=== PATIENT | female | born 1985 | race Caucasian/White ===

== ENCOUNTER 2020-01-24 10:08 | Emergency (ER) | payer MEDICAID, SELFPAY ==
[2020-01-24 10:09] VITALS: BMI 24.3
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
[2020-01-24 10:13] VITALS: BP 127/73; PULSE 88; RESP 18; TEMP 36.8; O2SAT 98
--- NOTE | 2020-01-24 10:18 | XRR_ITS ---
PROCEDURE INFORMATION: Exam: XR Right Ribs with PA Chest, 3 Views Exam date and time: 01/24/2020 10:18 AM Age: 34 years old Clinical indication: Other: RT rib pain; Additional info: Injury TECHNIQUE: Imaging protocol: XR Right ribs 3 views with PA chest. COMPARISON: CR Chest 1 [place] [id number] 09/19/2018 6:05 PM FINDINGS: Lungs: There are coarse interstitial changes bilaterally. Pleural space: Unremarkable. No pleural effusion. No pneumothorax. Heart/Mediastinum: Unremarkable. No cardiomegaly. Bones/joints: Unremarkable. XR/XR ribs RT mn 3V w CXR1V [id number] IMPRESSION: 1. No displaced rib fracture is identified. Please see above report for incidental findings. 2. There are coarse interstitial changes bilaterally. Followup imaging as clinically indicated is recommended.
[2020-01-24] MEDS: HYDROcodone-acetaminophen 7.5-325 mg Tablet 1 TAB PO (10:40)
[2020-01-24 11:18] VITALS: BP 121/63; PULSE 98; RESP 16; TEMP 36.9; O2SAT 100
== END 2020-01-24 11:19 | disposition home or self-care (01) ==
PROVIDERS: Emergency Provider Nurse Practitioner Family; Family Provider Nurse Practitioner Family; PCP Nurse Practitioner Family
DX: M79.18 Myalgia, other site (principal); F17.210 Nicotine dependence, cigarettes, uncomplicated
CPT/HCPCS: 12345; 71101; 99282; 99283

== ENCOUNTER 2020-05-13 17:17 | Emergency (ER) | payer MEDICAID, SELFPAY ==
[2020-05-13 17:18] VITALS: BP 127/61; PULSE 93; RESP 18; TEMP 36.8; O2SAT 100; BMI 24.3
--- NOTE | 2020-05-13 19:02 | PC.NURSE ---
attempted to call patient back to VF room 1. no answer in waiting room when called to be brought back at 1900. notified
--- NOTE | 2020-05-13 19:12 | PC.NURSE ---
CALL TO PATIENT IN ATTEMPTED TO CALL PATIENT BACK TO ROOM AGAIN. NO ANSWER IN THE WAITING ROOM AT 1912. WILL TRY AGAIN
== END 2020-05-13 19:47 | disposition left against medical advice (07) ==
PROVIDERS: Emergency Provider Emergency Medicine; PCP Nurse Practitioner Family
DX: Z53.21 Procedure and treatment not carried out due to patient leaving prior to being seen by health care provider (principal)
CPT/HCPCS: 99281

== ENCOUNTER → 2021-03-17 14:30 | Outpatient (BNVA) | payer BC, MEDICAID, SELFPAY | PROVIDERS: PCP Nurse Practitioner Family; Visit Provider Registered Nurse Neonatal Intensive Care | DX: R10.9 Unspecified abdominal pain (principal); N76.0 Acute vaginitis; B96.89 Other specified bacterial agents as the cause of diseases classified elsewhere | CPT/HCPCS: 81000 ==

== ENCOUNTER → 2021-05-12 18:26 | Outpatient (BNVA) | payer MEDICAID, SELFPAY | PROVIDERS: PCP Nurse Practitioner Family; Visit Provider Registered Nurse Neonatal Intensive Care | DX: Z20.822 Contact with and (suspected) exposure to COVID-19 (principal) | CPT/HCPCS: 87635 ==

== ENCOUNTER 2021-12-15 16:57 | Emergency (ER) | payer BC, MEDICAID, SELFPAY ==
[2021-12-15 17:11] VITALS: BP 136/84; PULSE 107; RESP 17; TEMP 36.9; O2SAT 98; BMI 25.0
--- NOTE | 2021-12-15 17:57 | ECG_ITS ---
[facility] Test Date: 2021-12-15 Pat Name: Kristal Santa Department: Room: Gender: Female Hims Manager: : 1985 Requested By: Tameka Miner Order Number: [id number] Salomon MD: Tenzin Farias M.D. Measurements Intervals [place] Rate: 86 P: 78 MO: 150 QRS: 62 QRSD: 86 T: 44 QT: 330 QTc: 396 Interpretive Statements SINUS RHYTHM POSSIBLE LEFT ATRIAL ENLARGEMENT [-0.1mV P-WAVE IN V1/V2] NONSPECIFIC T-WAVE ABNORMALITY Compared to ECG 12/03/2017 16:36:31 Sinus tachycardia no longer present T-wave abnormality still present Electronically Signed On 12-15-2021 21:28:31 CDT by Tenzin Farias M.D. [id number]
--- NOTE | 2021-12-15 17:57 | CTR_ITS ---
PROCEDURE INFORMATION: Exam: CT Head Without Contrast Exam date and time: 12/15/2021 6:10 PM Age: 36 years old Clinical indication: Dizziness TECHNIQUE: Imaging protocol: Computed tomography of the head without contrast. Axial, coronal and sagittal reformatted images were created and reviewed. Radiation optimization: All CT scans at this facility use at least one of these dose optimization techniques: automated exposure control; mA and/or kV adjustment per patient size (includes targeted exams where dose is matched to clinical indication); or iterative reconstruction. COMPARISON: CT head wo con* [id number] 09/19/2018 6:12 PM RADIATION DOSE METRICS: Total DLP (mGy-cm): 890.09 FINDINGS: Brain: No CT evidence of acute intracranial hemorrhage or acute territorial infarction. No significant mass effect or midline shift. Basal cisterns patent. Cerebral ventricles: Normal in size and configuration. Paranasal sinuses: Mild ethmoid and left sphenoid sinus mucosal thickening. No air-fluid levels. Mastoid air cells: Grossly unremarkable. Bones/joints: No acute osseous abnormality. Soft tissues: Grossly unremarkable. CT/CT head wo con* [id number] IMPRESSION: 1. No CT evidence of acute intracranial pathology. 2. Additional findings, as above.
--- NOTE | 2021-12-15 17:59 | W.ED.DIZZY ---
HPI - Dizziness General: Chief Complaint: Dizziness Stated Complaint: Dizzy spells, hx of [place] Time Seen by Provider: 12/15/21 17:22 Source: patient Mode of arrival: ambulatory Limitations: no limitations History of Present Illness: HPI Narrative: Patient is a 36-year-old female presents to ED today with a quite confusing history. She is somewhat hard to follow. She tells me ultimately she just does not feel well. She states she has been having intermittent episodes of dizziness for several months now. She states they initially began after an episode of methamphetamine use. She states she is not having any chest pain, shortness of breath, or palpitations. She states they initially were just in the evenings after smoking marijuana but now occur during the day. She states last week she used methamphetamine and feels like following that she was having motor issues stating she felt like her arms and legs were not working appropriately. She states this has improved over the past few days. She doesn't complain of any weakness in her extremities. She reports some paresthesias to the left side of her scalp a while ago but states these have resolved. She reports a history of grand mal seizures she has had for several years but apparently has never had any form of neurologic evaluation. Patient is not running fevers. No back or neck pain. MD elicited complaint: dizziness Onset (ago): week(s) Timing: episodic History of similar symptoms: Yes Relieving factors: nothing Associated symptoms: Denies chest pain, chills, headache(s), malaise, nausea, palpitations, syncope or vomiting Associated neuro symptoms: Deny confusion Stroke scale total: 0 Review of Systems Const: Denies: fever(s), chills, body aches, change in appetite, fatigue, malaise or night sweats Eyes: Denies: change in vision, blurry vision, blind spots, photophobia, floaters or seeing flashes Card: Denies: chest pain, palpitations, irregular heart rhythm, edema, swelling of feet/ankles, syncope, pre-syncope or orthopnea Resp: Denies: dyspnea, productive cough, wheezing, hemoptysis or chest congestion GI: Denies: abdominal pain, nausea, vomiting or diarrhea : Denies: flank pain or dysuria Musc: Denies: neck pain, back pain, extremity pain or joint pain Skin/Breast: Denies: rash Neuro: Reports: dizziness; Denies: headache(s), difficulty walking, frequent falls, confusion, Slurred speech present or restless legs PFSH ED PFSH: Social History Smoking and tobacco status: current every day smoker Female Reproductive History: Date of last menstrual period: 01/23/20 Physical Exam Const: COMMON NORMALS: no acute distress, average body habitus, patient oriented x3, no limitations, alert and well nourished GENERAL APPEARANCE: cooperative ORIENTATION/CONSCIOUSNESS: Yes awake, Yes oriented to person, Yes oriented to place and Yes oriented to time HENMT: COMMON NORMALS: normocephalic and atraumatic HEAD & SCALP: normal to inspection, normocephalic and atraumatic FACE & SINUS: normal facial exam Eye: COMMON NORMALS: Equal, round and reactive pupils present and EOMs intact bilaterally GENERAL EYE: appearance normal, both eyes and all related structures PUPIL: Yes Equal, round and reactive pupils present OTHER: no nystagmus-patient is not currently complaining of dizziness Neck/C-Spine: COMMON NORMALS: full ROM and no lymphadenopathy GENERAL: Yes normal visual inspection Resp: COMMON NORMALS: normal respiratory effort and clear to auscultation bilaterally AUSCULTATION: clear to auscultation bilaterally Cardio: COMMON NORMALS: regular rate and regular rhythm RATE: regular rate RHYTHM: regular rhythm GI: COMMON NORMALS: Normal to inspection, nondistended, normoactive bowel sounds present, Soft to palpation, non-tender and no masses PALPATION: Yes Soft to palpation Back/Pelvis: COMMON NORMALS: thoracic and lumbar spine normal to inspection, no thoracic nor lumbar tenderness and thoraco-lumbar ROM normal Extremity: COMMON NORMALS: normal to inspection GENERAL: Yes normal exam except as noted Neuro: MERCEDES COMA SCALE: document GCS findings [place] coma scale eye opening: Spontaneous [place] coma scale verbal response: Orientated Mercedes coma scale motor response: Obey commands Mercedes coma scale total score: 15 COMMON NORMALS: patient oriented x3, CN's II-XII intact bilaterally, moves all extremities, no focal motor deficits, no sensory deficits noted and gait normal SENSORIUM/ORIENTATION: Yes alert, Yes oriented to person, Yes oriented to place and Yes oriented to time SPEECH: speech normal SENSORY EXAM: Yes Bilaterally intact graphesthesia MOTOR EXAM: 5/5 motor strength present throughout Skin: COMMON NORMALS: no rashes or lesions noted GENERAL SKIN EXAM: no rashes or lesions noted TRAUMA: no lacerations or abrasions Course Vital Signs: Vital signs: Vital Signs Temperature 98.4 F 12/15/21 17:11 Pulse Rate 107 H 12/15/21 17:11 Respiratory Rate 17 12/15/21 17:11 Blood Pressure 136/84 12/15/21 17:11 Pulse Oximetry 98 12/15/21 17:11 [facility] - Dizziness Medical Decision Making Patient has no acute neurologic deficits currently. She is not currently complaining of dizziness. Her EKG is normal. Basic blood work is unremarkable. CT head is negative. She does have a primary care provider in [place] that I recommend she follows up with. According to patient she has never had any form of neurologic evaluation regarding her seizures therefore we will go ahead and place referral with Dr. Mckeon. Strict return to ED precautions given. Lab Data : 12/15/21 18:35 12/15/21 18:[address] 12/15/21 17:57 IMPRESSION: 1. No CT evidence of acute intracranial pathology. 2. Additional findings, as above. Laboratory Results WBC 6.8 10^3/uL (4.0-10.0) 12/15/21 18:35 RBC 4.43 10^6/uL (4.1-5.3) 12/15/21 18:35 Hgb 13.8 g/dL (11.5-15.3) 12/15/21 18:35 Hct 41.1 % (37.0-47.0) 12/15/21 18:35 MCV 92.8 fl (81-99) 12/15/21 18:35 MCH 31.2 pg (28.0-34.0) 12/15/21 18:35 MCHC 33.6 g/dL (30.0-36.0) 12/15/21 18:35 RDW 12.8 % (12.1-15.1) 12/15/21 18:35 Plt Count 301 10^3/cmm (130-400) 12/15/21 18:35 MPV 9.7 fL (7.4-10.4) 12/15/21 18:35 Neut % (Auto) 57.4 % 12/15/21 18:35 Lymph % (Auto) 32.5 % 12/15/21 18:35 Cherry % (Auto) 4.3 % 12/15/21 18:35 Eos % (Auto) 4.3 % 12/15/21 18:35 Baso % (Auto) 1.2 % 12/15/21 18:35 Neut # (Auto) 3.91 10^3/uL (1.8-7.7) 12/15/21 18:35 Lymph # (Auto) 2.2 10^3/uL (0.8-4.8) 12/15/21 18:35 Cherry # (Auto) 0.3 10^3/uL (0.2-0.9) 12/15/21 18:35 Eos # (Auto) 0.3 10^3/uL (0.0-0.8) 12/15/21 18:35 Baso # (Auto) 0.1 10^3/uL (0.0-0.1) 12/15/21 18:35 Nucleated RBC % (auto) 0 % 12/15/21 18:35 Nucleated RBCs # 0.0 /100WBC 12/15/21 18:35 Sodium 136 mmol/L (136-145) 12/15/21 18:35 Potassium 4.3 mmol/L (3.5-5.1) 12/15/21 18:35 Chloride 106 mmol/L (98-107) 12/15/21 18:35 Carbon Dioxide 22 mmol/L (22-29) 12/15/21 18:35 Anion Gap 12.3 (5-19) 12/15/21 18:35 BUN 11 mg/dL (6-20) 12/15/21 18:35 Creatinine 0.8 mg/dL (0.5-0.9) 12/15/21 18:35 GFR Calculation 80.7 mL/min (90-130) L 12/15/21 18:35 Glucose 122 mg/dL (65-115) H 12/15/21 18:35 Calculated Osmolality 283 mOsm/kg (285-295) L 12/15/21 18:35 Calcium 9.2 mg/dL (8.5-10.5) 12/15/21 18:35 Total Bilirubin 0.2 mg/dL (0.15-1.2) 12/15/21 18:35 AST 36 U/L (0-32) H 12/15/21 18:35 ALT 36 U/L (0-33) H 12/15/21 18:35 Alkaline Phosphatase 77 IU/L (35-105) 12/15/21 18:35 Total Protein 6.6 g/dL (6.6-8.7) 12/15/21 18:35 Albumin 4.0 g/dL (3.5-5.2) 12/15/21 18:35 Globulin 2.6 g/dL (1.3-4.6) 12/15/21 18:35 HCG, Qual Negative (Negative) 12/15/21 18:35 Discharge Plan Discharge Patient Disposition: Home Clinical Impression: Dizziness Condition: Stable Prescriptions: No Action gabapentin 300 mg capsule 300 mg PO BID 0RF venlafaxine [Effexor XR] 150 mg capsule,extended release 24hr 150 mg PO DAILY 0RF buspirone 30 mg tablet 20 mg PO BID 0RF bupropion HCl 75 mg tablet 75 mg PO TID 0RF Rx Instructions: administer 6 hours apart buprenorphine-naloxone [Suboxone] 8-2 mg film 3 film sublingual DAILY 0RF Rx Instructions: place 1 strip/tab under (each) side of tongue clindamycin HCl 300 mg capsule 300 mg PO TID 7 Days Qty: 21 0RF prednisone 10 mg tablet 30 mg PO DAILY 5 Days Qty: 15 0RF Discharge Orders: Discharge ED (Routine); Ordered 12/15/21 Ordered By: Tameka Miner Referrals: KAYCEE Simental, CLINICAL ACCOUNT SPECIALIST [Primary Care Provider] - Coding Level of Care Code ED Supply Chain Program Manager for Jonh Olsen
[2021-12-15 18:41] LABS: Basophils # 0.1 10^3/uL (0.0-0.1); Basophils % 1.2 %; Eosinophils # 0.3 10^3/uL (0.0-0.8); Eosinophils % 4.3 %; Hematocrit 41.1 % (37.0-47.0); Hemoglobin 13.8 g/dL (11.5-15.3); Lymphocytes # 2.2 10^3/uL (0.8-4.8); Lymphocytes % 32.5 %; Mean Corpuscular HGB Conc 33.6 g/dL (30.0-36.0); Mean Corpuscular Hemoglobin 31.2 pg (28.0-34.0); Mean Corpuscular Volume 92.8 fl (81-99); Mean Platelet Volume 9.7 fL (7.4-10.4); Monocytes # 0.3 10^3/uL (0.2-0.9); Monocytes % 4.3 %; Neutrophils # 3.91 10^3/uL (1.8-7.7); Neutrophils % 57.4 %; Nucleated Red Blood Cells % 0 %; Platelet Count 301 10^3/cmm (130-400); Red Blood Count 4.43 10^6/uL (4.1-5.3); Red Cell Distribution Width 12.8 % (12.1-15.1); White Blood Count 6.8 10^3/uL (4.0-10.0)
[2021-12-15 18:57] LABS: Alanine Aminotransferase 36 U/L (0-33); Alkaline Phosphatase 77 IU/L (35-105); Anion Gap 12.3 (5-19); Aspartate Amino Transferase 36 U/L (0-32); Blood Urea Nitrogen 11 mg/dL (6-20); Calcium 9.2 mg/dL (8.5-10.5); Carbon Dioxide 22 mmol/L (22-29); Chloride 106 mmol/L (98-107); Globulin 2.6 g/dL (1.3-4.6); Glomerular Filtration Rate 80.7 mL/min (90-130); Glucose 122 mg/dL (65-115); Osmolality Calculated 283 mOsm/kg (285-295); Potassium 4.3 mmol/L (3.5-5.1); Sodium 136 mmol/L (136-145); Total Bilirubin 0.2 mg/dL (0.15-1.2); Total Protein 6.6 g/dL (6.6-8.7)
[2021-12-15 19:07] LABS: HCG, Serum Qual Negative (Negative)
--- NOTE | 2021-12-16 10:00 | DCPLANNER ---
Addendum entered by Palma Azul 02/17/22 18:25: Patient had a follow up appointment for patient with 02.02.22 with neurology - patient did not attend appointment. Addendum entered by Palma zAul 12/20/21 14:07: Patient has a follow up appointment scheduled for January at 10:[address] Mckeon. Clinic will call patient with appointment information. Addendum entered by Palma Azul 12/20/21 06:57: district manager postal service emailed neurology clinic checking on appointment. Original Note: district manager postal service had message to schedule a follow up appointment for patient with neurology. district manager postal service sent patients information to neurology thru [employer] system. Patients information will be printed and reviewed. Clinic will call patient with appointment information.
== END 2021-12-15 19:26 | disposition home or self-care (01) ==
PROVIDERS: Emergency Provider Physician Assistant; PCP Nurse Practitioner Family
DX: R42 Dizziness and giddiness (principal); G40.409 Other generalized epilepsy and epileptic syndromes, not intractable, without status epilepticus; F17.210 Nicotine dependence, cigarettes, uncomplicated
CPT/HCPCS: 70450; 80053; 84703; 85025; 93005; 99282

== ENCOUNTER 2022-04-11 14:22 | Emergency (ER) | payer BC, MEDICAID, SELFPAY ==
[2022-04-11 14:40] VITALS: BP 101/60; PULSE 74; RESP 18; TEMP 36.8; O2SAT 98; BMI 24.3
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
[2022-04-11 16:09] VITALS: BP 104/68; PULSE 78; RESP 16; O2SAT 99
== END 2022-04-11 16:13 | disposition home or self-care (01) ==
PROVIDERS: Emergency Provider Physician Assistant; PCP Nurse Practitioner Family
DX: S09.8XXA Other specified injuries of head, initial encounter (principal); S01.81XA Laceration without foreign body of other part of head, initial encounter; F17.210 Nicotine dependence, cigarettes, uncomplicated; W01.0XXA Fall on same level from slipping, tripping and stumbling without subsequent striking against object, initial encounter
CPT/HCPCS: 70450; 99284

== ENCOUNTER 2022-05-14 14:01 | Emergency (ER) | payer BC, MEDICAID, SELFPAY ==
[2022-05-14 14:07] VITALS: BP 104/59; PULSE 116; RESP 16; TEMP 36.8; O2SAT 98; BMI 24.3
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
[2022-05-14 16:12] LABS: Amphetamines Screen Urine Negative (Negative); Barbiturates Screen Urine Negative (Negative); Benzodiazepines Screen Urine Negative (Negative); Cocaine Screen Urine Negative (Negative); Opiate Screen Urine Negative (Negative); PCP Screen Urine Negative (Negative); THC Screen Urine Positive (Negative)
== END 2022-05-14 16:19 | disposition home or self-care (01) ==
PROVIDERS: Emergency Provider Physician Assistant; PCP Nurse Practitioner Family
DX: L02.412 Cutaneous abscess of left axilla (principal); F17.210 Nicotine dependence, cigarettes, uncomplicated
CPT/HCPCS: 10060; 80306; 99283

== ENCOUNTER 2022-05-17 08:54 | Emergency (ER) | payer BC, MEDICAID, SELFPAY ==
[2022-05-17 09:15] VITALS: TEMP 36.6
--- NOTE | 2022-05-17 10:34 | W.ED.GENADLT ---
HPI - General Adult General: Chief complaint: General Medical Stated complaint: Her bandage came off and wants it looked at Time Seen by Provider: 05/17/22 09:10 Source: patient Mode of arrival: ambulatory Limitations: no limitations History of Present Illness: 37-year-old female presented to the emergency room this morning just requesting a bandage replacement. Her bandages come off from a hidradenitis lesion that had been incised and drained within the last week. She has a lot of irritation from the tape. It is no longer draining or open. She said multiple episodes of this in the past. No fever sweats or chills. Onset (ago): week(s) Location: upper extremity (Left axilla) Severity: mild Quality: aching Pain Consistency: constant Relieving factors: none Exacerbating factors: none Associated symptoms: Deny chest pain, confusion, cough, decreased appetite, dyspnea, fevers/chills, headache(s), malaise, rash, seizures, short of breath or weakness Treatments prior to arrival: none Review of Systems Const: Denies: fever(s), chills, fatigue or malaise Card: Denies: chest pain Resp: Denies: dyspnea GI: Denies: abdominal pain : Denies: difficulty voiding, dysuria, urinary frequency or urinary urgency Skin/Breast: Denies: rash Neuro: Denies: headache(s) or confusion PFS ED PFSH: Medical History (Updated 05/17/22 @ 10:38 by Luke August DO) Depression Hidradenitis axillaris Seizures Surgical History (Updated 05/17/22 @ 10:38 by Luke August DO) H/O breast augmentation [place] teeth extracted Social History Smoking and tobacco status: current every day smoker Female Reproductive History: Date of last menstrual period: 01/23/20 Physical Exam Const: COMMON NORMALS: no acute distress GENERAL APPEARANCE: cooperative and comfortable ORIENTATION/CONSCIOUSNESS: Yes awake, Yes oriented to person, Yes oriented to place and Yes oriented to time HENMT: COMMON NORMALS: normocephalic, atraumatic and hearing grossly normal bilaterally HEAD & SCALP: normocephalic and atraumatic Resp: COMMON NORMALS: normal respiratory effort, No retractions, No use of accessory muscles and clear to auscultation bilaterally AUSCULTATION: clear to auscultation bilaterally Cardio: COMMON NORMALS: regular rate, regular rhythm and No murmurs present (Cardio) RATE: regular rate RHYTHM: regular rhythm Extremity: COMMON NORMALS: normal to inspection, capillary refill normal, no clubbing, cyanosis or edema, no calf tenderness and no pedal edema Neuro: SENSORIUM/ORIENTATION: Yes oriented to person, Yes oriented to place and Yes oriented to time Skin: OTHER: Left axillary nodule mildly tender nonfluctuant. No overlying erythema. Course Vital Signs: Vital signs: Vital Signs Temperature 97.9 F 05/17/22 09:15 MDM - General Adult Medical Decision Making At this point it will take a lot of benefit from her keeping it covered its not open wound is not actively draining. Have her use topical antibiotic ointment there is a lot of tape irritation areas adjacent to the axilla. She can also use topical lidocaine for comfort. We will get her set up to see surgery for consideration of surgical excision of the area. Medical Records I reviewed the patient's medical records. Discharge Plan Discharge Patient Disposition: Home Clinical Impression: Hidradenitis axillaris Condition: Stable Prescriptions: New mupirocin 2 % ointment 1 applic topical BID Qty: 22 0RF lidocaine 5 % gel 1 ea topical QID Qty: 113 0RF No Action gabapentin 300 mg capsule 300 mg PO BID venlafaxine [Effexor XR] 150 mg capsule,extended release 24hr 150 mg PO DAILY buspirone 30 mg tablet 20 mg PO BID bupropion HCl 75 mg tablet 75 mg PO TID Rx Instructions: administer 6 hours apart buprenorphine-naloxone [Suboxone] 8-2 mg film 3 film sublingual DAILY Rx Instructions: place 1 strip/tab under (each) side of tongue clindamycin HCl 300 mg capsule 300 mg PO TID 7 Days Qty: 21 0RF prednisone 10 mg tablet 30 mg PO DAILY 5 Days Qty: 15 0RF Bactrim DS 800-160 mg tablet 1 tab PO BID 10 Days Qty: 20 0RF Discharge Orders: Discharge ED (Routine); Ordered 05/17/22 Ordered By: Luke August Referrals: KAYCEE Simental, HAUNTED HISTORY TOUR GUIDE [Primary Care Provider] - Discharge Diet: Usual diet Discharge Activity: Resume usual activity Patient Instructions: Opioid Safety Activity Restrictions/Additional Instructions: Case management make arrangements for you to follow-up with one of the surgeons for the hidradenitis. Coding Level of Care Code ED It Help Desk Technician for Jonh Fwstacey Exam Detailed
--- NOTE | 2022-05-26 13:50 | DCPLANNER ---
Addendum entered by Palma Azul 06/05/22 16:20: population health manager received the following message from the general surgery clinic regarding follow up appointment: Mailing patient a letter due to no contact On 05/30/22 @ 08:52 Peterson Smalls Wrote To [employer] Program Manager Front Off called patient and voicemail box stated patient was not accepting messages right now.. 05/30 On 05/26/22 @ 13:52 Catina Hua Wrote To [employer] Program Manager Front Off phone kept ringing vm didn't lemon picker 05/26 Original Note: population health manager had message to schedule a follow up appointment for patient with general surgery. population health manager sent patients information to the front office staff at general surgery. Patients information will be printed and reviewed. Clinic will call patient with appointment information.
== END 2022-05-17 10:18 | disposition home or self-care (01) ==
PROVIDERS: Emergency Provider Family Medicine; PCP Nurse Practitioner Family
DX: L73.2 Hidradenitis suppurativa (principal); F17.210 Nicotine dependence, cigarettes, uncomplicated
CPT/HCPCS: 99283

== ENCOUNTER 2022-05-22 17:56 | Emergency (ER) | payer BC, MEDICAID, SELFPAY ==
[2022-05-22 18:06] VITALS: BP 109/67; PULSE 117; RESP 20; TEMP 37.1; O2SAT 96; BMI 25.0
== END 2022-05-22 19:12 | disposition left against medical advice (07) ==
LOC: ER 18:16
PROVIDERS: Emergency Provider Family Medicine; PCP Nurse Practitioner Family
DX: Z53.21 Procedure and treatment not carried out due to patient leaving prior to being seen by health care provider (principal); T14.8XXA Other injury of unspecified body region, initial encounter; W57.XXXA Bitten or stung by nonvenomous insect and other nonvenomous arthropods, initial encounter

== ENCOUNTER 2022-07-06 09:08 | Emergency (ER) | payer BC, MEDICAID, SELFPAY ==
[2022-07-06 09:08] VITALS: BP 107/53; PULSE 114; RESP 16; TEMP 36.2; O2SAT 100; BMI 25.0
--- NOTE | 2022-07-06 10:14 | W.ED.WOUNDLC ---
HPI - Wound/Laceration General: Chief Complaint: Wound/Laceration Stated Complaint: cysts underarm Time Seen by Provider: 07/06/22 09:36 History of Present Illness: Patient is a 37-year-old female comes to the ED with left axillary abscess. Patient was seen here in the ED for same complaint back on May 17. She was put on antibiotic and did not take full course of antibiotic. The abscess area improved but then came back. 2 weeks ago she had one of her friends who is a nurse perform an I&D on abscess and it drained. Patient still having some pain and swelling in the left axillary region. Denies any active draining of abscess currently. Associated symptoms: Denies chills, fever(s), nausea or vomiting Review of Systems Const: Denies: fever(s), chills or fatigue Eyes: Denies: change in vision or eye discomfort ENMT: Denies: throat pain, odynophagia, nasal discharge or nasal congestion Card: Denies: chest pain, palpitations, edema, swelling of feet/ankles, dyspnea on exertion or orthopnea Resp: Denies: dyspnea, productive cough or non-productive cough GI: Denies: abdominal pain, nausea, vomiting, diarrhea, constipation or hematochezia : Denies: flank pain, dysuria or hematuria Musc: Denies: neck pain, back pain or extremity swelling Skin/Breast: Reports: new lesions (Abscess in left axillary region.); Denies: rash Neuro: Denies: headache(s), numbness in extremities or weakness in extremities PFS ED PFSH: Medical History Acute idiopathic urticaria Anxiety Depression Hidradenitis axillaris Nonspecific vaginitis Seizures Surgical History H/O breast augmentation [place] teeth extracted Social History Smoking and tobacco status: current every day smoker Female Reproductive History: Date of last menstrual period: 04/21/22 Physical Exam Const: COMMON NORMALS: no acute distress, patient oriented x3 and alert GENERAL APPEARANCE: cooperative and comfortable HENMT: COMMON NORMALS: normocephalic HEAD & SCALP: normocephalic MOUTH: Normal oral and palatal mucosa present THROAT: posterior oropharynx normal and uvula midline Neck/C-Spine: COMMON NORMALS: supple GENERAL: Yes normal visual inspection Resp: COMMON NORMALS: normal respiratory effort, No retractions, No use of accessory muscles and clear to auscultation bilaterally AUSCULTATION: clear to auscultation bilaterally Cardio: COMMON NORMALS: regular rate, regular rhythm, S1 normal heart sound present, S2 normal heart sound present, No gallops present (Cardio), No clicks present (Cardio), No murmurs present (Cardio) and Peripheral pulses 2+ throughout RATE: regular rate RHYTHM: regular rhythm HEART SOUNDS: S1 normal heart sound present and S2 normal heart sound present PERIPHERAL PULSES: Peripheral pulses 2+ throughout GI: COMMON NORMALS: Normal to inspection, nondistended, normoactive bowel sounds present, Soft to palpation, non-tender and no masses PALPATION: Yes Soft to palpation : COMMON NORMALS: Yes no CVA tenderness BLADDER/KIDNEY EXAM: Yes no CVA tenderness Back/Pelvis: COMMON NORMALS: no CVA tenderness Extremity: NARRATIVE EXTREMITY EXAM: Left axillary-3 erythemic, tender and warm nodules noted. They were fluctuant and nonindurated. Findings suggestive of abscess. Neuro: COMMON NORMALS: patient oriented x3 SENSORIUM/ORIENTATION: Yes alert GAIT: Yes Normal gait present Skin: GENERAL SKIN EXAM: dry skin Procedures Abscess I/D Site: upper extremity (Left axillary) Side (if applicable): left Sedation/analgesia: other (Local lidocaine 1%) Amount of anesthesia used (mL): 3 Technique: incised with #11 blade Amount of fluid expressed (mL): 2 Irrigation: Yes Packing used?: none Course Vital Signs: Vital signs: Vital Signs Temperature 97.2 F L 07/06/22 09:08 Pulse Rate 114 H 07/06/22 09:08 Respiratory Rate 16 07/06/22 09:08 Blood Pressure 107/53 07/06/22 09:08 Pulse Oximetry 100 07/06/22 09:08 Oxygen Delivery Me thod 07/06/22 09:08 MDM - Wound/Laceration Medical Decision Making Patient is a 37-year-old female comes to the ED with 3 small left axillary abscesses. Patient was seen here in the ED for same complaint back on May 17. She states that abscesses improved a little bit after her ED visit back on the and then came back. Lidocaine 1% was used and I&D performed with 11 blade. Abscess culture pending. Since abscesses have been going on now for close to 2 months and came back after initial treatment I am referring her to general surgery for follow-up. Patient was stable for discharge home and sent home with a prescription for clindamycin. She was told to follow-up with PCP within the next week as well for reevaluation. Return to ED precautions given. Patient understood and agreed with plan. Discharge Plan Discharge Patient Disposition: Home Clinical Impression: Abscess Condition: Stable Prescriptions: New clindamycin HCl 150 mg capsule 300 mg PO Q6H 10 Days Qty: 80 0RF prednisone 20 mg tablet 20 mg PO BID 5 Days Qty: 10 0RF No Action gabapentin 300 mg capsule 300 mg PO BID venlafaxine [Effexor XR] 150 mg capsule,extended release 24hr 150 mg PO DAILY bupropion HCl 75 mg tablet 75 mg PO TID Rx Instructions: administer 6 hours apart buprenorphine-naloxone [Suboxone] 8-2 mg film 3 film sublingual DAILY Rx Instructions: place 1 strip/tab under (each) side of tongue clonazepam [Klonopin] 1 mg tablet 1 mg PO DAILY metronidazole 500 mg tablet 500 mg PO BID PRN (Reason: nonspecific vaginitis) Qty: 14 1RF hydroxyzine HCl 50 mg tablet See Rx Instructions .ROUTE .COMPLEX Qty: 90 5RF Dose Instruction: TAKE 1 TABLET BY MOUTH THREE TIMES DAILY NEEDED FOR ITCHING Rx Instructions: TAKE 1 TABLET BY MOUTH THREE TIMES DAILY NEEDED FOR ITCHING mupirocin 2 % ointment 1 applic topical BID Qty: 22 0RF lidocaine 5 % gel 1 ea topical QID Qty: 113 0RF Discharge Orders: Discharge ED (Routine); Ordered 07/06/22 Ordered By: Dom Pérez Discharge Diet: Regular Discharge Activity: Increase activity as tolerated Patient Instructions: Abscess (ED) Activity Restrictions/Additional Instructions: Follow-up with medical provider as directed. Case management should be contacting you in the next several days set up an appointment with general surgery for follow-up on abscess. Take medications as prescribed. Return to the ER or your medical provider if condition worsens. Please read and understand discharge instructions. Thank you for choosing [facility] for your healthcare needs today. Please realize this is an emergency room and that we are providing you with a medical screening exam and this may not be complete and all inclusive of all the testing and or work up that you may need to determine your ailment or severity of your illness. It is very important that you follow up as instructed or that you return to the Emergency Department should you have concerns or if your condition changes or worsens in any way. Coding Level of Care Code ED Supervisor [employer] for Jonh Fwstacey Exam Comprehensive
[2022-07-06] MEDS: HYDROcodone-acetaminophen 7.5-325 mg Tablet 1 TAB PO (10:26)
[2022-07-06] MEDS: clindamycin 150 mg Capsule 300 MG PO (11:10)
--- NOTE | 2022-07-06 13:37 | DCPLANNER ---
Addendum entered by Palma Azul 09/13/22 11:34: Patient had a follow up appointment scheduled with general surgery - patient did not attend appointment. Addendum entered by Palma Azul 07/13/22 12:27: Patient has a follow up appointment scheduled for Sunday, July 26, 2022 at 1:[address] Ochoa at general surgery. Clinic will call patient with appointment information. Original Note: rehab therapy manager had message to schedule a follow up appointment for patient with general surgery. rehab therapy manager sent patients information to the front office staff at general surgery. Patients information will be printed and reviewed. Clinic will call patient with appointment information.
== END 2022-07-06 11:12 | disposition home or self-care (01) ==
PROVIDERS: Emergency Provider Physician Assistant
DX: L02.412 Cutaneous abscess of left axilla (principal); F17.210 Nicotine dependence, cigarettes, uncomplicated
CPT/HCPCS: 10060; 87070; 87075; 87077; 87186; 87205; 99283

== ENCOUNTER 2022-07-14 14:08 | Inpatient (IN) | payer BC, SELFPAY ==
[2022-07-14 14:12] VITALS: BP 121/62; PULSE 105; RESP 15; TEMP 36.4; O2SAT 99; BMI 25.0
--- NOTE | 2022-07-14 14:23 | ED.C_ITS ---
HPI - Psych General: Chief Complaint: Psychiatric Symptoms Stated Complaint: Mental Health Eval Time Seen by Provider: 07/14/22 14:23 History of Present Illness: Ms Santa is a 37-year-old female with history of depression, seizures, Suboxone presenting to the emergency department for depression with suicidal ideation. She reports worsening symptoms for 3 to 4 months in the context of some life stressors. She feels hopeless and that she has nothing to live for. She notes unstable relationships and a poor support system. She intermittently sleeps too much or is unable to sleep, she also has intermittent overeating at not eating. Overall course of symptoms has worsened. Intensity is moderate to severe. She endorses medication compliance and has worsened despite this. Denies current medical complaints. No other specific changes in health, exacerbating, or alleviating factors identified. Onset (ago): month(s) Duration: getting worse Context: significant life stressor Associated psychiatric symptoms: depression and suicidal ideation Associated symptoms: Reports no associated symptoms If self harm: admits thoughts of self harm and has plan Review of Systems General: Reports: 10 or more systems reviewed and unremarkable except in HPI and below PFSH ED PFSH: Medical History Acute idiopathic urticaria Anxiety Depression Hidradenitis axillaris Nonspecific vaginitis Seizures Surgical History H/O breast augmentation [place] teeth extracted Social History Smoking and tobacco status: current every day smoker Female Reproductive History: Date of last menstrual period: 07/03/22 Physical Exam Const: COMMON NORMALS: alert GENERAL APPEARANCE: cooperative, well kempt and well developed HENMT: COMMON NORMALS: normocephalic and atraumatic HEAD & SCALP: normocephalic and atraumatic Eye: COMMON NORMALS: conjunctivae normal CONJUNCTIVA: Yes conjunctivae normal SCLERA: sclerae normal Neck/C-Spine: COMMON NORMALS: supple GENERAL: Yes trachea midline Resp: COMMON NORMALS: normal respiratory effort EFFORT & INSPECTION: Yes able to speak in complete sentences Cardio: COMMON NORMALS: regular rate and regular rhythm RATE: regular rate RHYTHM: regular rhythm GI: COMMON NORMALS: Soft to palpation PALPATION: Yes Soft to palpation and No Tenderness to palpation present (GI) PERCUSSION: normal to percussion Extremity: GENERAL: Yes normal exam except as noted and No edema Neuro: COMMON NORMALS: moves all extremities SENSORIUM/ORIENTATION: Yes alert and No Orientation impaired Psych: COMMON NORMALS: mental status grossly normal and Normal thought process present APPEARANCE: Yes well kempt ATTITUDE: Yes Withdrawn affect present MOOD & AFFECT: Yes depressed mood and Yes tearful THOUGHT PROCESS: Normal t hought process present THOUGHT CONTENT: Yes Suicidality present INSIGHT: Fair insight present (Psych) JUDGEMENT: Good judgement present (Psych) Course ED course: - Patient was seen and evaluated by me at bedside - Vital signs obtained - Initial evaluation notable for exam as above - Labs personally interpreted by me - Labs notable for no acute hematologic abnormality. No acute electrolyte derangement. Mild transaminitis of unclear significance appears generally similar to prior, recommend outpatient evaluation. Toxic ingestions negative. Serum hCG negative. Urine still pending at time of admission. - No indication based on history and exam for imaging - Upon serial reexamination after treatment the patient was similar - Based on patient history, evaluation, and testing as interpreted the most likely cause of the patient's condition is depression with suicidal ideation - Based on ED evaluation at this point there is no obvious condition that would preclude the patient from inpatient management of psychiatric concerns - Admitting service was contacted and Dr. Segal with the psychiatry service agreed to admit the patient - Patient was admitted without further deterioration or significant events. Note: Click bubbles or prepopulated steinberg in note writing are used for assistance with data collection and billing and are inherently more limited than narrative and other text portions of this note. Please use narrative for additional clinical history and defer to narrative/free test for any case of contradictory information. If information appears in only free text or click bubble it should be considered present or absent as reported. Please contact note fha underwriter for clarifications of clinical information or contradictory information. MDM is a brief summary, contradictory or erroneous seeming information should be clarified and full note should be reviewed. Vital Signs: Vital signs: Vital Signs Temperature 98.3 F 07/14/22 17:26 Pulse Rate 93 07/14/22 17:26 Respiratory Rate 18 07/14/22 17:26 Blood Pressure 111/71 07/14/22 17:26 Pulse Oximetry 98 07/14/22 17:26 Oxygen Delivery Me thod 07/14/22 17:27 MDM - Psych Medical Decision Making 37-year-old lady presenting with worsening depression and suicidal ideation. Based on ED evaluation at this point there is no obvious condition that would preclude the patient from inpatient management. Patient to be admitted to neuropsychiatric unit for psychiatry service evaluation and treatment. Medical Records I reviewed the patient's medical records. Lab Data I reviewed the patient's lab results. : 07/14/22 14:58 07/14/22 14:58 Discharge Plan Discharge Patient Disposition: Admitted As Inpatient Admit Provider: Kai Segal Clinical Impression: Suicidal ideation Condition: Stable Coding Level of Care Code ED Commercial Fishing Vessel Operator for Chg Fwd Exam Comprehensive
[2022-07-14] MEDS: nicotine 7 mg Patch 1 PATCH TRANSDERMA (15:01)
[2022-07-14 15:05] LABS: Basophils # 0.1 10^3/uL (0.0-0.1); Basophils % 1.4 %; Eosinophils # 0.8 10^3/uL (0.0-0.8); Eosinophils % 9.4 %; Hematocrit 43.3 % (37.0-47.0); Hemoglobin 14.1 g/dL (11.5-15.3); Lymphocytes % 37.8 %; Mean Corpuscular HGB Conc 32.6 g/dL (30.0-36.0); Mean Corpuscular Hemoglobin 30.7 pg (28.0-34.0); Mean Corpuscular Volume 94.1 fl (81-99); Mean Platelet Volume 9.1 fL (7.4-10.4); Monocytes # 0.6 10^3/uL (0.2-0.9); Monocytes % 6.9 %; Neutrophils # 3.51 10^3/uL (1.8-7.7); Nucleated Red Blood Cells % 0 %; Platelet Count 365 10^3/cmm (130-400); Red Cell Distribution Width 13.2 % (12.1-15.1)
[2022-07-14 15:35] LABS: Albumin Level 3.4 g/dL (3.5-5.2); Alkaline Phosphatase 88 U/L (35-105); Anion Gap 9.4 (5-19); Aspartate Amino Transferase 35 U/L (0-32); Blood Urea Nitrogen 16 mg/dL (6-20); Calcium 8.9 mg/dL (8.5-10.5); Carbon Dioxide 29 mmol/L (22-29); Chloride 103 mmol/L (98-107); Creatinine Clr Calc Pharmacy 102.7714; Globulin 2.8 g/dL (1.3-4.6); Glomerular Filtration Rate 80.3 mL/min (90-130); Glucose 85 mg/dL (65-115); Osmolality Calculated 284 mOsm/kg (285-295); Potassium 4.4 mmol/L (3.5-5.1); Salicylate 3.1 mg/dL (3-10); Sodium 137 mmol/L (136-145); Thyroid Stimulating Hormone 2.38 uIU/mL (0.27-4.20); Total Bilirubin 0.2 mg/dL (0.15-1.2); Total Protein 6.2 g/dL (6.6-8.7)
[2022-07-14 15:45] LABS: Alanine Aminotransferase 40 U/L (0-33)
[2022-07-14 15:50] LABS: Acetaminophen < 5.0 ug/mL (10-30); Alcohol Level < 10 mg/dL (0-10)
[2022-07-14 16:19] VITALS: BP 121/62; PULSE 95; RESP 15; TEMP 36.4; O2SAT 99
[2022-07-14 17:14] VITALS: BP 121/62; PULSE 95; RESP 15; TEMP 36.4; O2SAT 99
[2022-07-14 17:26] VITALS: BP 111/71; PULSE 93; RESP 18; TEMP 36.8; O2SAT 98
[2022-07-14 17:27] VITALS: BMI 25.0
[2022-07-14 17:37] LABS: HCG, Serum Qual Negative (Negative)
--- NOTE | 2022-07-14 17:39 | PC.NURSE ---
Transfer Report From SLOT FLOOR PERSON Dayana stated patient is having depression and suicidal ideations without a plan. She is wanting help to prevent herself from harming herself. She is denying AH/VH. ER stated they weren't able to get urine drug screen so we will be obtaining one.
[2022-07-14 19:52] VITALS: BP 107/67; PULSE 82; RESP 17; TEMP 36.8; O2SAT 97
[2022-07-14] MEDS: gabapentin 300 mg Capsule PO (23:15)
[2022-07-14] MEDS: CLONazepam 1 mg Tablet PO (23:16)
[2022-07-14] MEDS: hyDROXYzine 25 mg Capsule 50 MG PO (23:16)
[2022-07-14] MEDS: buprenorphine-naloxone 4-1 mg Film 2 EACH SUBLINGUAL (23:16)
[2022-07-15 06:00] VITALS: BP 97/69; PULSE 77; RESP 17; TEMP 36.7; O2SAT 99
[2022-07-15] MEDS: clindamycin 150 mg Capsule 300 MG PO ×4 (08:21→20:33)
[2022-07-15] MEDS: gabapentin 300 mg Capsule PO (08:22)
[2022-07-15] MEDS: venlafaxine ER (24HR) 150 mg Capsule PO (08:22)
[2022-07-15] MEDS: buprenorphine-naloxone 4-1 mg Film 2 EACH SUBLINGUAL ×3 (08:22→20:33)
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
[2022-07-15] MEDS: topiramate 25 mg Tablet 50 MG PO ×2 (12:22→20:33)
[2022-07-15] MEDS: buPROPion SR (12 HR) 100 mg Tablet 200 MG PO ×2 (12:22→20:33)
[2022-07-15 14:00] VITALS: BP 96/56; PULSE 84; RESP 18; TEMP 36.7; O2SAT 97
[2022-07-15] MEDS: gabapentin 300 mg Capsule 600 MG PO ×2 (15:28→20:33)
[2022-07-15 16:04] LABS: Amphetamines Screen Urine Negative (Negative); Barbiturates Screen Urine Negative (Negative); Benzodiazepines Screen Urine Positive (Negative); Cocaine Screen Urine Negative (Negative); Opiate Screen Urine Negative (Negative); PCP Screen Urine Negative (Negative); THC Screen Urine Positive (Negative)
[2022-07-15 20:25] VITALS: BP 95/59; PULSE 84; RESP 16; TEMP 36.6; O2SAT 97
[2022-07-15] MEDS: CLONazepam 1 mg Tablet PO (20:33)
[2022-07-16 06:00] VITALS: BP 102/64; PULSE 81; RESP 16; TEMP 36.9; O2SAT 96
[2022-07-16] MEDS: acetaminophen 325 mg Tablet 650 MG PO ×2 (06:08→18:55)
--- NOTE | 2022-07-16 07:01 | W.PM.NPUPNS ---
Subjective NPU Subjective: Patient presents today reporting that she is open to starting the Abilify after we discussed the risks, benefits and alternatives she understood agreed to take it. She reports that she really wants to make sure that she gets her life back on track. We discussed her working with the treatment team on possible residential options so that she can stop couch surfing and create a more stable reality for herself. She endorses making some opiates and stimulants. Mental Status Exam MSE Comments: This is well nourished, well developed white woman with limited grooming but adequate eye contact. No abnormal movements except for mild psychomotor retardation. Notable scar on the right sternocleidomastoid area, Cooperative with exam in mild distress. Speech was normal rate and decreased volume. Mood described as tired, affect is congruent. Thought process, organized. Thought content: patient denies suicidal or homicidal ideation, no delusions reported or noted and denies any auditory or visual hallucinations. Attention and concentration are intact and memory appeared reliable but none were formally tested. She is alert and oriented times three. Insight and judgment are fair and impulse control is limited. Vitals/I&O/Wt Last Vital Signs Temp 97.8 F 07/15/22 20:25 Pulse 84 07/15/22 20:25 Resp 16 07/15/22 20:25 BP 95/59 07/15/22 20:25 Pulse Ox 97 07/15/22 20:25 O2 Del Method 07/14/22 17:27 Weight last 48 hrs Weight 76.566 kg Weight 74.843 kg Weight 74.843 kg Data NPU : 07/14/22 14:58 07/14/22 14:58 A&P Assessment and plan (1) Suicidal ideation: (2) Nonspecific vaginitis: (3) Acute idiopathic urticaria: (4) Anxiety: (5) Cannabis abuse: (6) Opioid use disorder, severe, on maintenance therapy: (7) Major depressive disorder, severe: Plan This is 37 year old white woman with a history of trauma, post traumatic stress disorder and genetic loading for mental health, addiction and lethality issues who presents with passive wish and suicidal ideation reporting she is open to changes in her medications at this time. 1. Continue current medications. Started Abilify 5 mg p.o. every morning. 2. Encourage individual, group and milieu therapy 3. Continue q-15 minute check for safety 4. Encourage sober living treatment after discharge the highest level of care to which she is willing to commit. Involuntary Hold Information 96 Hour Hold: 96 Hour Involuntary Admission: No Attestations NPU Medical Necessity Statement*: Inpatient hospitalization is medically necessary and the clinically appropriate intervention at this time. We will monitor medications and make changes as indicated. Likely length of stay is 2-4 days. Coding Level of Care Code Acute Mechanical Test Engineer for [facility] Fwd Diagnoses Suicidal ideation R45.851 Nonspecific vaginitis N76.0 Acute idiopathic urticaria L50.1 Anxiety F41.9 Cannabis abuse F12.10 Opioid use disorder, severe, on maintenance therapy F11.20 Major depressive disorder, severe F32.2
[2022-07-16] MEDS: ARIPiprazole 10 mg Tablet 5 MG PO (09:26)
[2022-07-16] MEDS: buprenorphine-naloxone 4-1 mg Film 2 EACH SUBLINGUAL ×3 (09:27→20:30)
[2022-07-16] MEDS: buPROPion SR (12 HR) 100 mg Tablet 200 MG PO ×2 (09:28→20:32)
[2022-07-16] MEDS: clindamycin 150 mg Capsule 300 MG PO ×4 (09:28→20:32)
[2022-07-16] MEDS: gabapentin 300 mg Capsule 600 MG PO ×3 (09:28→20:31)
[2022-07-16] MEDS: venlafaxine ER (24HR) 75 mg Capsule 225 MG PO (09:28)
[2022-07-16] MEDS: topiramate 25 mg Tablet 50 MG PO ×2 (09:28→20:33)
[2022-07-16 13:34] VITALS: BP 132/66; PULSE 88; RESP 16; TEMP 36.6; O2SAT 99
[2022-07-16] MEDS: nicotine 21 mg Patch 1 PATCH TRANSDERMA (18:35)
[2022-07-16] MEDS: CLONazepam 1 mg Tablet PO (20:32)
[2022-07-16] MEDS: trazodone 50 mg Tablet PO (20:33)
[2022-07-16 21:04] VITALS: BP 109/66; PULSE 80; RESP 12; TEMP 36.6; O2SAT 98
[2022-07-16 22:00] VITALS: BP 109/66; PULSE 80; RESP 12; TEMP 36.6; O2SAT 98
[2022-07-17 06:00] VITALS: BP 100/62; PULSE 74; RESP 17; TEMP 36.4; O2SAT 92
[2022-07-17] MEDS: acetaminophen 325 mg Tablet 650 MG PO ×3 (08:08→18:19)
[2022-07-17] MEDS: buPROPion SR (12 HR) 100 mg Tablet 200 MG PO ×2 (08:09→19:09)
[2022-07-17] MEDS: buprenorphine-naloxone 4-1 mg Film 2 EACH SUBLINGUAL ×3 (08:09→19:46)
[2022-07-17] MEDS: gabapentin 300 mg Capsule 600 MG PO ×3 (08:09→19:47)
[2022-07-17] MEDS: venlafaxine ER (24HR) 75 mg Capsule 225 MG PO (08:09)
[2022-07-17] MEDS: topiramate 25 mg Tablet 50 MG PO (08:09)
[2022-07-17] MEDS: ARIPiprazole 10 mg Tablet 5 MG PO (08:10)
[2022-07-17 14:00] VITALS: BP 112/57; PULSE 84; RESP 16; TEMP 36.8; O2SAT 97
--- NOTE | 2022-07-17 17:55 | P.NPUPN_ITS ---
Subjective NPU Subjective: Patient is a 37-year-old white female with opiate addiction and methamphetamine abuse depression currently homeless reports good motivation to maintaining sobriety. She reports that her goals have been to have her child return to her home eventually. She reports has reported feeling depressed and suicidal and she reports a lack of support has been her on doing. She reports that she might want to consider inpatient substance abuse treatment and reports that she had been receiving maintenance treatment for opiate use through [facility] in [place] despite living approximately 2 hours from there. She had endorsed a long history of PTSD related symptoms as well. She had reported problems with concentration and reported difficulties with depression as well. Mental Status Exam MSE Comments: This is well nourished, well developed white woman with limited grooming but adequate eye contact. No abnormal movements except for mild psychomotor retardation. Notable scar on the right sternocleidomastoid area, Cooperative with exam in mild distress. Speech was normal rate and decreased volume. Mood described as down. Her affect was tearful and mood congruent. Thought process, organized. Thought content: patient denies homicidal ideation but endorsed suicidal ideation. , no delusions reported or noted and denies any auditory or visual hallucinations. Attention and concentration are intact and memory appeared reliable but none were formally tested. She is alert and oriented times three. Insight and judgment are poor and impulse control is limited. Vitals/I&O/Wt Last Vital Signs Temp 98.2 F 07/17/22 14:00 Pulse 84 07/17/22 14:00 Resp 16 07/17/22 14:00 BP 112/57 07/17/22 14:00 Pulse Ox 97 07/17/22 14:00 O2 Del Method 07/17/22 06:00 Weight last 48 hrs Weight 76.566 kg Data NPU : 07/14/22 14:58 07/14/22 14:58 A&P Assessment and plan (1) Suicidal ideation: (2) Nonspecific vaginitis: (3) Acute idiopathic urticaria: (4) Anxiety: (5) Cannabis abuse: (6) Opioid use disorder, severe, on maintenance therapy: (7) Major depressive disorder, severe: Plan This is 37 year old white woman with a history of trauma, post traumatic stress disorder and genetic loading for mental health, addiction and lethality issues who presents with passive wish and suicidal ideation reporting she is open to changes in her medications at this time. 1. Continue current medications. Continue Abilify 5 mg p.o. every morning, decrease topamax to 50mg daily. Wellbutrin sr 200mg bid. 2. Encourage individual, group and milieu therapy 3. Continue q-15 minute check for safety 4. Encourage sober living treatment after discharge the highest level of care to which she is willing to commit. Involuntary Hold Information 96 Hour Hold: 96 Hour Involuntary Admission: No Attestations NPU Medical Necessity Statement*: Inpatient hospitalization is medically necessary and the clinically appropriate intervention at this time. We will monitor medications and make changes as indicated. Likely length of stay is 2-4 days. Coding Level of Care Code Established Pt Acute Billet Shearer for Jonh Olsen Patient Type Established History Problem Focused Exam Problem Focused Medical Decision Making Straight Forward Diagnoses Suicidal ideation R45.851 Nonspecific vaginitis N76.0 Acute idiopathic urticaria L50.1 Anxiety F41.9 Cannabis abuse F12.10 Opioid use disorder, severe, on maintenance therapy F11.20 Major depressive disorder, severe F32.2
[2022-07-17] MEDS: CLONazepam 1 mg Tablet PO (19:47)
[2022-07-17] MEDS: trazodone 50 mg Tablet PO (19:48)
[2022-07-17] MEDS: docusate sodium 100 mg Capsule PO (19:55)
[2022-07-17 22:00] VITALS: BP 110/67; PULSE 86; RESP 16; TEMP 36.8; O2SAT 96
[2022-07-18 06:00] VITALS: BP 98/51; PULSE 72; RESP 14; TEMP 36.6; O2SAT 95
[2022-07-18] MEDS: acetaminophen 325 mg Tablet 650 MG PO ×3 (06:06→19:01)
[2022-07-18] MEDS: topiramate 25 mg Tablet 50 MG PO (06:07)
[2022-07-18] MEDS: nicotine 21 mg Patch 1 PATCH TRANSDERMA (08:10)
[2022-07-18] MEDS: ARIPiprazole 10 mg Tablet 5 MG PO (08:11)
[2022-07-18] MEDS: buprenorphine-naloxone 4-1 mg Film 2 EACH SUBLINGUAL ×3 (08:11→20:11)
[2022-07-18] MEDS: buPROPion SR (12 HR) 100 mg Tablet 200 MG PO ×2 (08:12→18:01)
[2022-07-18] MEDS: gabapentin 300 mg Capsule 600 MG PO ×3 (08:12→20:11)
[2022-07-18] MEDS: venlafaxine ER (24HR) 75 mg Capsule 225 MG PO (08:12)
[2022-07-18 14:00] VITALS: BP 103/53; PULSE 77; RESP 16; TEMP 36.6; O2SAT 99
--- NOTE | 2022-07-18 17:03 | P.NPUPN_ITS ---
Subjective NPU Subjective: Patient is a 37-year-old white female with opiate addiction and methamphetamine abuse depression currently homeless reports good motivation to maintaining sobriety. She reports desire to enter into an inpatient rehabilitation program and reports good motivation to maintain sobriety and receive treatment for methamphetamine dependence. She had reported past history of seizures and reports that she had been compliant with these medications. She reported no cravings for opiates. She was unable to describe any particular triggers that had led to methamphetamine use. She reported a significant familial history of of polysubstance abuse. She reports that she would be agreeable to receiving intensive services if it provided any hope of her having her child return to her care. She had reported feeling more hopeful today and stated that she was having less frequent suicidal thoughts. Mental Status Exam MSE Comments: This is well nourished, well developed white woman with limited grooming but adequate eye contact. No abnormal movements except for mild psychomotor retardation. Notable scar on the right sternocleidomastoid area, Cooperative with exam in mild distress. Speech was normal rate and decreased volume. Mood described as okay. Her affect was restricted and mood incongruen t. Thought process appeared linear and organized. Thought content: patient denies homicidal ideation but endorsed suicidal ideation. , no delusions reported or noted and denies any auditory or visual hallucinations. Attention and concentration are intact and memory appeared reliable but none were formally tested. She is alert and oriented times three. Insight and judgment are poor and impulse control is limited. Vitals/I&O/Wt Last Vital Signs Temp 97.8 F 07/18/22 06:00 Pulse 72 07/18/22 06:00 Resp 14 07/18/22 06:00 BP 98/51 07/18/22 06:00 Pulse Ox 95 07/18/22 06:00 O2 Del Method 07/18/22 06:00 Data NPU : 07/14/22 14:58 07/14/22 14:58 A&P Assessment and plan (1) Suicidal ideation: (2) Nonspecific vaginitis: (3) Acute idiopathic urticaria: (4) Anxiety: (5) Cannabis abuse: (6) Opioid use disorder, severe, on maintenance therapy: (7) Major depressive disorder, severe: Plan This is 37 year old white woman with a history of trauma, post traumatic stress disorder and genetic loading for mental health, addiction and lethality issues who presents with passive wish and suicidal ideation reporting she is open to changes in her medications at this time. 1. Increase Abilify 7.5 mg p.o. every morning, discontinue topamax. Wellbutrin sr 200mg bid. Continue suboxone 8mg tid, Effexor xr 225mg in am. 2. Encourage individual, group and milieu therapy 3. Continue q-15 minute check for safety 4. Encourage sober living treatment after discharge the highest level of care to which she is willing to commit. Involuntary Hold Information 96 Hour Hold: 96 Hour Involuntary Admission: No Attestations NPU Medical Necessity Statement*: Inpatient hospitalization is medically necessary and the clinically appropriate intervention at this time. We will monitor medications and make changes as indicated. Likely length of stay is 7-9 days as patient would benefit from direct transition to inpatient substance abuse program. Coding Level of Care Code Established Pt Acute Degreaser Operator for [facility] Fwd Patient Type Established History Problem Focused Exam Problem Focused Medical Decision Making Straight Forward Diagnoses Suicidal ideation R45.851 Nonspecific vaginitis N76.0 Acute idiopathic urticaria L50.1 Anxiety F41.9 Cannabis abuse F12.10 Opioid use disorder, severe, on maintenance therapy F11.20 Major depressive disorder, severe F32.2
[2022-07-18] MEDS: docusate sodium 100 mg Capsule PO (19:00)
[2022-07-18 19:49] VITALS: BP 99/62; PULSE 98; RESP 18; TEMP 36.7; O2SAT 97
[2022-07-18] MEDS: CLONazepam 1 mg Tablet PO (20:11)
[2022-07-19] MEDS: acetaminophen 325 mg Tablet 650 MG PO ×4 (03:12→19:33)
[2022-07-19 06:00] VITALS: BP 105/66; PULSE 97; RESP 18; TEMP 36.2; O2SAT 100
[2022-07-19] MEDS: ARIPiprazole 10 mg Tablet 7.5 MG PO (08:39)
[2022-07-19] MEDS: venlafaxine ER (24HR) 75 mg Capsule 225 MG PO (08:39)
[2022-07-19] MEDS: gabapentin 300 mg Capsule 600 MG PO ×3 (08:39→21:05)
[2022-07-19] MEDS: buPROPion SR (12 HR) 100 mg Tablet 200 MG PO ×2 (08:40→18:27)
[2022-07-19] MEDS: buprenorphine-naloxone 4-1 mg Film 2 EACH SUBLINGUAL ×3 (08:43→21:05)
[2022-07-19 14:00] VITALS: BP 100/60; PULSE 81; RESP 18; TEMP 36.4; O2SAT 99
[2022-07-19] MEDS: nicotine 21 mg Patch 1 PATCH TRANSDERMA (16:27)
--- NOTE | 2022-07-19 18:35 | W.PM.NPUPNS ---
Subjective NPU Subjective: Patient is a 37-year-old white female with opiate addiction and methamphetamine abuse depression currently homeless with reports of depressed mood and suicidal ideation. Patient had reported a decrease in suicidal thoughts that she had endorsed some feelings of hopefulness. She reports that she no longer had cravings for opiates and was unable to describe having any triggers for methamphetamine use. She had reported that she was motivated to have her child return to her care but understood that she needed more intensive services. She reports not currently having a home to return to at this time. She had reported significant discord with her mother. She had reported adequate sleep. She had reported a past history of depressed mood. She reported no panic attacks here on the milieu. She requested more information regarding her likely placement at the [facility] on July 28, 2022. Mental Status Exam MSE Comments: This is well nourished, well developed white woman with limited grooming but adequate eye contact. No abnormal movements except for mild psychomotor retardation. Notable scar on the right sternocleidomastoid area, Cooperative with exam in mild distress. Speech was normal rate and normal volume. Mood described as better. Her affect eemained restricted and mood incongruent. Thought process appeared linear and organized. Thought content: patient denies homicidal ideation but endorsed suicidal ideation. , no delusions reported or noted and denies any auditory or visual hallucinations. Attention and concentration are intact and memory appeared reliable but none were formally tested. She is alert and oriented times three. Insight and judgment are poor and impulse control is limited. Vitals/I&O/Wt Last Vital Signs Temp 97.6 F 07/19/22 14:00 Pulse 81 07/19/22 14:00 Resp 18 07/19/22 14:00 BP 100/60 07/19/22 14:00 Pulse Ox 99 07/19/22 14:00 O2 Del Method 07/18/22 06:00 Data NPU : 07/14/22 14:58 07/14/22 14:58 A&P Assessment and plan (1) Suicidal ideation: (2) Nonspecific vaginitis: (3) Acute idiopathic urticaria: (4) Anxiety: (5) Cannabis abuse: (6) Opioid use disorder, severe, on maintenance therapy: (7) Major depressive disorder, severe: Plan This is 37 year old white woman with a history of trauma, post traumatic stress disorder and genetic loading for mental health, addiction and lethality issues who presents with passive wish and suicidal ideation reporting she is open to changes in her medications at this time. 1. Continue Abilify 7.5 mg p.o. every morning, discontinue topamax. Change wellbutrin sr to once a day wellbutrin xl 300mg in am beginning tommorow. Continue suboxone 8mg tid, Effexor xr 225mg in am, continue klonopin 1mg/day 2. Encourage individual, group and milieu therapy 3. Continue q-15 minute check for safety 4. Encourage sober living treatment after discharge the highest level of care to which she is willing to commit. Involuntary Hold Information 96 Hour Hold: 96 Hour Involuntary Admission: No Attestations NPU Medical Necessity Statement*: Inpatient hospitalization is medically necessary and the clinically appropriate intervention at this time. We will monitor medications and make changes as indicated. Likely length of stay is 7-9 days as patient would benefit from direct transition to inpatient substance abuse program. Coding Level of Care Code Established Pt Acute Final Cigar And Box Examiner for [facility]wstacey Patient Type Established History Problem Focused Exam Problem Focused Medical Decision Making Straight Forward Diagnoses Suicidal ideation R45.851 Nonspecific vaginitis N76.0 Acute idiopathic urticaria L50.1 Anxiety F41.9 Cannabis abuse F12.10 Opioid use disorder, severe, on maintenance therapy F11.20 Major depressive disorder, severe F32.2
[2022-07-19] MEDS: CLONazepam 1 mg Tablet PO (21:05)
[2022-07-19 22:00] VITALS: BP 92/62; PULSE 100; RESP 18; TEMP 36.7; O2SAT 96
[2022-07-20 06:00] VITALS: BP 98/62; PULSE 79; RESP 18; TEMP 36.7; O2SAT 98
[2022-07-20] MEDS: buPROPion XL (24 HR) 300 mg Tablet PO (08:33)
[2022-07-20] MEDS: buprenorphine-naloxone 4-1 mg Film 2 EACH SUBLINGUAL ×3 (08:34→20:52)
[2022-07-20] MEDS: gabapentin 300 mg Capsule 600 MG PO ×3 (08:34→20:52)
[2022-07-20] MEDS: venlafaxine ER (24HR) 75 mg Capsule 225 MG PO (08:34)
[2022-07-20] MEDS: ARIPiprazole 10 mg Tablet 7.5 MG PO (08:34)
[2022-07-20 14:00] VITALS: BP 102/64; PULSE 92; RESP 18; TEMP 36.8; O2SAT 98
[2022-07-20] MEDS: OLANZapine 5 mg ODT PO (17:20)
--- NOTE | 2022-07-20 20:35 | W.PM.NPUPNS ---
Subjective NPU Subjective: Patient is a 37-year-old white female with opiate addiction and methamphetamine abuse depression currently homeless with reports of depressed mood and suicidal ideation. Patient had expressed desire to consider the 90-day rehabilitation center for substance use. She reports that she wished to continue on Suboxone and her medications. She reports that she had contacted her affirmative action officer to discuss these issues. She reported improved mood and reported that her energy was starting to improve as well. She denied any suicidal ideation today but stated that she continued to have brief periods of hopelessness with periods of sadness. She had been cooperative and was able to attend individual and milieu therapy. She reported some improvement in sleep. She reported no side effects from her medication. Mental Status Exam MSE Comments: This is well nourished, well developed white woman with limited grooming but adequate eye contact. There was continued evidence of mild psychomotor retardation. Notable scar on the right sternocleidomastoid area, Cooperative with exam in mild distress. Speech was normal rate and normal volume. Mood described as better. Her affect remained restricted and mood incongruent. Thought process appeared linear and organized. Thought content: patient denies homicidal ideation or suicidal ideation. There were no delusions reported or noted and denies any auditory or visual hallucinations. Attention and concentration are intact and memory appeared reliable but none were formally tested. She is alert and oriented times three. Insight and judgment are improving and impulse control is improving. Vitals/I&O/Wt Last Vital Signs Temp 98.2 F 07/20/22 14:00 Pulse 92 07/20/22 14:00 Resp 18 07/20/22 14:00 BP 102/64 07/20/22 14:00 Pulse Ox 98 07/20/22 14:00 O2 Del Method 07/20/22 06:00 Data NPU : 07/14/22 14:58 07/14/22 14:58 A&P Assessment and plan (1) Suicidal ideation: (2) Nonspecific vaginitis: (3) Acute idiopathic urticaria: (4) Anxiety: (5) Cannabis abuse: (6) Opioid use disorder, severe, on maintenance therapy: (7) Major depressive disorder, severe: Plan This is 37 year old white woman with a history of trauma, post traumatic stress disorder and genetic loading for mental health, addiction and lethality issues who presents with passive wish and suicidal ideation reporting she is open to changes in her medications at this time. 1. Increase Abilify 10 mg p.o. every morning. Continue Wellbutrin XL 300 mg in the morning. Continue suboxone 8mg tid, Effexor xr 225mg in am, continue klonopin 1mg/day 2. Encourage individual, group and milieu therapy 3. Continue q-15 minute check for safety 4. Encourage sober living treatment after discharge the highest level of care to which she is willing to commit. The patient is at high risk to use if discharge and given her homelessness it would be better to transition directly to inpatient unit next week. Involuntary Hold Information 96 Hour Hold: 96 Hour Involuntary Admission: No Attestations NPU Medical Necessity Statement*: Inpatient hospitalization is medically necessary and the clinically appropriate intervention at this time. We will monitor medications and make changes as indicated. Likely length of stay is 7-9 days as patient would benefit from direct transition to inpatient substance abuse program. Coding Level of Care Code Established Pt Acute Or Director for Jonh Olsen Patient Type Established History Problem Focused Exam Problem Focused Medical Decision Making Straight Forward Diagnoses Suicidal ideation R45.851 Nonspecific vaginitis N76.0 Acute idiopathic urticaria L50.1 Anxiety F41.9 Cannabis abuse F12.10 Opioid use disorder, severe, on maintenance therapy F11.20 Major depressive disorder, severe F32.2
[2022-07-21] MEDS: hyDROXYzine 25 mg Capsule 50 MG PO (03:39)
[2022-07-21 06:00] VITALS: BP 89/46; PULSE 74; RESP 16; TEMP 36.6; O2SAT 96
[2022-07-21] MEDS: gabapentin 300 mg Capsule 600 MG PO ×2 (08:35→15:39)
[2022-07-21] MEDS: buPROPion XL (24 HR) 300 mg Tablet PO (08:35)
[2022-07-21] MEDS: ARIPiprazole 10 mg Tablet PO (08:35)
[2022-07-21] MEDS: venlafaxine ER (24HR) 75 mg Capsule 225 MG PO (08:35)
[2022-07-21] MEDS: buprenorphine-naloxone 4-1 mg Film 2 EACH SUBLINGUAL ×2 (08:35→15:26)
--- NOTE | 2022-07-21 09:25 | P.NPUPN_ITS ---
Subjective NPU Subjective: Patient is a 37-year-old white female with opiate addiction and methamphetamine abuse and depression currently homeless admitted with depressed mood and suicidal ideation. Patient had reported speaking with her [employer]ance [employer] officer and reported feeling anxious afterwards stating that she did not appear to have much choice regarding her placement at the [facility] [place] through the office of corrections. She had reported less frequent suicidal thoughts. She continued to express great concern about returning to the streets and using methamphetamine in the absence of support at this time. She had reported no cravings for opiates while taking her Suboxone. She had reported having sleep difficulties but reports some improvement with hydroxyzine for anxiety yesterday. She reported no side effects from Abilify. She had reported continued depressed mood but states that she has been more motivated to do things. Staff notes the patient has been engaging in self-care. She has been attending groups at this time. She is not endorsing any nightmares or flashbacks currently. Mental Status Exam MSE Comments: This is well nourished, well developed white woman with improved grooming but adequate eye contact. Psychomotor retardation continued to remain evident. Notable scar on the right sternocleidomastoid area. Speech was normal in regards to rate rhythm, prosody and volume. Mood described as okay. Her affect was restricted and mood incongruent. Thought process appeared linear and organized. Thought content: patient denies homicidal ideation or suicidal ideation. There were no delusions reported or noted and denies any auditory or visual hallucinations. Attention and concentration are grossly intact and memory appeared reliable but none were formally tested. She is alert and oriented times three. Insight and judgment are improving and impulse control was improving but still poor. Vitals/I&O/Wt Last Vital Signs Temp 97.8 F 07/21/22 06:00 Pulse 74 07/21/22 06:00 Resp 16 07/21/22 06:00 BP 89/46 07/21/22 06:00 Pulse Ox 96 07/21/22 06:00 O2 Del Method 07/21/22 06:00 Data NPU : 07/14/22 14:58 07/14/22 14:58 A&P Assessment and plan (1) Suicidal ideation: (2) Nonspecific vaginitis: (3) Acute idiopathic urticaria: (4) Anxiety: (5) Cannabis abuse: (6) Opioid use disorder, severe, on maintenance therapy: (7) Major depressive disorder, severe: Plan This is 37 year old white woman with a history of trauma, post traumatic stress disorder and genetic loading for mental health, addiction and lethality issues who presents with passive wish and suicidal ideation reporting she is open to changes in her medications at this time. 1. Continue Abilify 10 mg p.o. every morning. Continue Wellbutrin XL 300 mg in the morning. Continue suboxone 8mg tid, Effexor xr 225mg in am, switch klonopin to .5mg bid. 2. Encourage individual, group and milieu therapy 3. Continue q-15 minute check for safety 4. Encourage sober living treatment after discharge the highest level of care to which she is willing to commit. The patient is at high risk to use if discharge and given her homelessness it would be better to transition directly to inpatient rehabilitation unit next week. Involuntary Hold Information 96 Hour Hold: 96 Hour Involuntary Admission: No Attestations NPU Medical Necessity Statement*: Inpatient hospitalization is medically necessary and the clinically appropriate intervention at this time. We will monitor medications and make changes as indicated. Likely length of stay is 7-9 days as patient would benefit from direct transition to inpatient substance abuse program strongly suggested by the patient's [employer]ance [employer] officer. Coding Level of Care Code Established Pt Acute Drug Regulatory Affairs Specialist for Jonh Fwstacey Patient Type Established History Problem Focused Exam Problem Focused Medical Decision Making Straight Forward Diagnoses Suicidal ideation R45.851 Nonspecific vaginitis N76.0 Acute idiopathic urticaria L50.1 Anxiety F41.9 Cannabis abuse F12.10 Opioid use disorder, severe, on maintenance therapy F11.20 Major depressive disorder, severe F32.2
[2022-07-21] MEDS: CLONazepam 1 mg Tablet 0.5 MG PO ×2 (11:20→17:35)
[2022-07-21 14:00] VITALS: BP 99/64; PULSE 84; RESP 18; TEMP 36.1; O2SAT 98
[2022-07-21] MEDS: nicotine 21 mg Patch 1 PATCH TRANSDERMA (16:19)
[2022-07-21] MEDS: docusate sodium 100 mg Capsule PO (16:19)
[2022-07-21 20:08] VITALS: BP 97/63; PULSE 89; RESP 18; TEMP 36.4; O2SAT 99
[2022-07-22] MEDS: buprenorphine-naloxone 4-1 mg Film 2 EACH SUBLINGUAL ×4 (02:51→20:31)
[2022-07-22] MEDS: gabapentin 300 mg Capsule 600 MG PO ×4 (02:52→20:31)
[2022-07-22] MEDS: hyDROXYzine 25 mg Capsule 50 MG PO (02:52)
[2022-07-22] MEDS: trazodone 50 mg Tablet PO (02:52)
[2022-07-22 06:00] VITALS: BP 86/50; PULSE 72; RESP 16; TEMP 37; O2SAT 95
[2022-07-22] MEDS: buPROPion XL (24 HR) 300 mg Tablet PO (08:49)
[2022-07-22] MEDS: ARIPiprazole 10 mg Tablet PO (08:49)
[2022-07-22] MEDS: CLONazepam 1 mg Tablet 0.5 MG PO ×2 (08:50→17:32)
[2022-07-22] MEDS: venlafaxine ER (24HR) 75 mg Capsule 225 MG PO (08:50)
[2022-07-22 13:38] VITALS: BP 94/57; PULSE 82; RESP 16; TEMP 36.6; O2SAT 97
--- NOTE | 2022-07-22 14:26 | W.PM.NPUPNS ---
Subjective NPU Subjective: Patient is a 37-year-old white female with opiate addiction and methamphetamine abuse and depression currently homeless admitted with depressed mood and suicidal ideation. Patient reported depressed mood. She reported no active suicidal thoughts. She had reported no cravings for methamphetamine. She reported that Suboxone had diminished her desire to use opiates. She had reported acceptance with going to the rehabilitation center later next week on an inpatient basis. She continued to report struggles with finances and stated that being homeless created a great deal of anxiety for her. She had reported some difficulties falling asleep and reported feeling tired today. Mental Status Exam MSE Comments: This is well nourished, well developed white woman with improved grooming but adequate eye contact. Psychomotor retardation continued to remain evident. Notable scar on the right sternocleidomastoid area. Speech was normal in regards to rate rhythm, prosody and volume. Mood described as allright. Her affect remains restricted and mood incongruent. Thought process appeared linear and organized. Thought content: patient denies homicidal ideation or suicidal ideation. There were no delusions reported or noted and denies any auditory or visual hallucinations. Attention and concentration are grossly intact and memory appeared reliable but none were formally tested. She is alert and oriented times three. Insight and judgment are improving. Her impulse control was guarded. Vitals/I&O/Wt Last Vital Signs Temp 98 F 07/22/22 13:38 Pulse 82 07/22/22 13:38 Resp 16 07/22/22 13:38 BP 94/57 07/22/22 13:38 Pulse Ox 97 07/22/22 13:38 O2 Del Method 07/21/22 06:00 Data NPU : 07/14/22 14:58 07/14/22 14:58 A&P Assessment and plan (1) Suicidal ideation: (2) Nonspecific vaginitis: (3) Acute idiopathic urticaria: (4) Anxiety: (5) Cannabis abuse: (6) Opioid use disorder, severe, on maintenance therapy: (7) Major depressive disorder, severe: Plan This is 37 year old white woman with a history of trauma, post traumatic stress disorder and genetic loading for mental health, addiction and lethality issues who presents with passive wish and suicidal ideation reporting she is open to changes in her medications at this time. 1. Continue Abilify 10 mg p.o. every morning. Continue Wellbutrin XL 300 mg in the morning. Continue suboxone 8mg tid, Effexor xr 225mg in am, switch klonopin to .5mg bid. 2. Encourage individual, group and milieu therapy 3. Continue q-15 minute check for safety 4. Encourage sober living treatment after discharge the highest level of care to which she is willing to commit. The patient is at high risk to use if discharge and given her homelessness it would be better to transition directly to inpatient rehabilitation unit next week. Involuntary Hold Information 96 Hour Hold: 96 Hour Involuntary Admission: No Attestations NPU Medical Necessity Statement*: Inpatient hospitalization is medically necessary and the clinically appropriate intervention at this time. We will monitor medications and make changes as indicated. Likely length of stay is 7-9 days as patient would benefit from direct transition to inpatient substance abuse program strongly suggested by the patient's military source operations officer. Coding Level of Care Code Established Pt Acute Tobacco Stemmer Machine for Jonh Fwd Patient Type Established History Problem Focused Exam Problem Focused Medical Decision Making Straight Forward Diagnoses Suicidal ideation R45.851 Nonspecific vaginitis N76.0 Acute idiopathic urticaria L50.1 Anxiety F41.9 Cannabis abuse F12.10 Opioid use disorder, severe, on maintenance therapy F11.20 Major depressive disorder, severe F32.2
[2022-07-22] MEDS: nicotine 2 mg Gum BUCCAL (19:48)
[2022-07-22 20:08] VITALS: BP 103/63; PULSE 89; RESP 16; TEMP 36.7; O2SAT 97
[2022-07-23 06:00] VITALS: BP 95/58; PULSE 73; RESP 17; TEMP 36.8; O2SAT 98
[2022-07-23] MEDS: buPROPion XL (24 HR) 300 mg Tablet PO (08:59)
[2022-07-23] MEDS: CLONazepam 1 mg Tablet 0.5 MG PO ×2 (08:59→18:35)
[2022-07-23] MEDS: ARIPiprazole 10 mg Tablet PO (08:59)
[2022-07-23] MEDS: venlafaxine ER (24HR) 75 mg Capsule 225 MG PO (09:00)
[2022-07-23] MEDS: buprenorphine-naloxone 4-1 mg Film 2 EACH SUBLINGUAL ×3 (09:00→19:52)
[2022-07-23] MEDS: gabapentin 300 mg Capsule 600 MG PO ×3 (09:00→19:52)
[2022-07-23] MEDS: nicotine 21 mg Patch 1 PATCH TRANSDERMA (09:03)
--- NOTE | 2022-07-23 13:49 | W.PM.NPUPNS ---
Subjective NPU Subjective: Patient is a 37-year-old white female with opiate addiction and methamphetamine abuse and depression currently homeless admitted with depressed mood and suicidal ideation. Patient continued to report feeling excessively tired. She had reported no cravings for methamphetamines nor reporting any obvious triggers for her desire to use. The patient reported feeling less worried about her inpatient rehabilitation center scheduled for next week. She reported adequate sleep at night. She reported continuing to feel depressed and endorsed a lack of pleasure with doing anything. She had continued to report some difficulties with concentration. Mental Status Exam MSE Comments: This is well nourished, well developed white woman with improved grooming but adequate eye contact. Psychomotor retardation continued to remain evident. Notable scar on the right sternocleidomastoid area. Speech was normal in regards to rate rhythm, prosody and volume. Mood described as tired Her affect remains restricted and mood congruent. Thought process appeared linear and organized. Thought content: patient denies homicidal ideation or suicidal ideation. There was no evidence of delusional thinking and she denies any auditory or visual hallucinations. Attention and concentration are grossly intact and memory appeared reliable but none were formally tested. She is alert and oriented times three. Insight and judgment are improving. Her impulse control was guarded. Vitals/I&O/Wt Last Vital Signs Temp 98.2 F 07/23/22 06:00 Pulse 73 07/23/22 06:00 Resp 17 07/23/22 06:00 BP 95/58 07/23/22 06:00 Pulse Ox 98 07/23/22 06:00 O2 Del Method 07/21/22 06:00 Data NPU : 07/14/22 14:58 07/14/22 14:58 A&P Assessment and plan (1) Suicidal ideation: (2) Nonspecific vaginitis: (3) Acute idiopathic urticaria: (4) Anxiety: (5) Cannabis abuse: (6) Opioid use disorder, severe, on maintenance therapy: (7) Major depressive disorder, severe: Plan This is 37 year old white woman with a history of trauma, post traumatic stress disorder and genetic loading for mental health, addiction and lethality issues who presents with passive wish and suicidal ideation reporting she is open to changes in her medications at this time. 1. Continue Abilify 5 mg p.o. every morning. Continue Wellbutrin XL 300 mg in the morning. Continue suboxone 8mg tid, Effexor xr 225mg in am, switch klonopin to .5mg bid. Continue gabapentin 600mg tid. 2. Encourage individual, group and milieu therapy 3. Continue q-15 minute check for safety 4. Encourage sober living treatment after discharge the highest level of care to which she is willing to commit. The patient is at high risk to use if discharge and given her homelessness it would be better to transition directly to inpatient rehabilitation unit next week. Involuntary Hold Information 96 Hour Hold: 96 Hour Involuntary Admission: No Attestations NPU Medical Necessity Statement*: Inpatient hospitalization is medically necessary and the clinically appropriate intervention at this time. We will monitor medications and make changes as indicated. Likely length of stay is 7-9 days as patient would benefit from direct transition to inpatient substance abuse program strongly suggested by the patient's regulatory compliance officer. Coding Level of Care Code Established Pt Acute Electronic Component Processor for Cristoferg Fwd Patient Type Established History Problem Focused Exam Problem Focused Medical Decision Making Straight Forward Diagnoses Suicidal ideation R45.851 Nonspecific vaginitis N76.0 Acute idiopathic urticaria L50.1 Anxiety F41.9 Cannabis abuse F12.10 Opioid use disorder, severe, on maintenance therapy F11.20 Major depressive disorder, severe F32.2
[2022-07-23 14:00] VITALS: BP 92/61; PULSE 101; RESP 17; TEMP 36.5; O2SAT 97
[2022-07-23] MEDS: docusate sodium 100 mg Capsule PO (14:02)
[2022-07-23 21:57] VITALS: BP 131/65; PULSE 88; RESP 16; TEMP 37; O2SAT 95
[2022-07-24 05:55] VITALS: BP 106/69; PULSE 119; RESP 18; TEMP 36.7; O2SAT 98
[2022-07-24] MEDS: ARIPiprazole 10 mg Tablet 5 MG PO (08:35)
[2022-07-24] MEDS: gabapentin 300 mg Capsule 600 MG PO ×3 (08:35→21:15)
[2022-07-24] MEDS: buPROPion XL (24 HR) 300 mg Tablet PO (08:36)
[2022-07-24] MEDS: CLONazepam 1 mg Tablet 0.5 MG PO ×2 (08:36→18:05)
[2022-07-24] MEDS: buprenorphine-naloxone 4-1 mg Film 2 EACH SUBLINGUAL ×3 (08:37→21:15)
[2022-07-24] MEDS: venlafaxine ER (24HR) 75 mg Capsule 225 MG PO (08:38)
--- NOTE | 2022-07-24 10:41 | P.NPUPN_ITS ---
Subjective NPU Subjective: Patient is a 37-year-old white female with opiate addiction and methamphetamine abuse and depression currently homeless admitted with depressed mood and suicidal ideation. The patient had reported feeling optimistic as she had made contact with her parents and her mother had indicated that the patient may be able to return to her mother's home for the next 4 days at which time the patient would be taken on 07/28/22 directly to the substance abuse facility by her commissioned defence force officer. The patient reported that she wishes to see her daughter if she was going to be placed for 90 days there and stated that she understood that it was necessary for her to be placed in this drug treatment center to avoid legal consequences. She reported less cravings for methamphetamine and reported no feelings of hopelessness. She reported feeling less tired since the reduction in Abilify to 5 mg daily. Mental Status Exam MSE Comments: This is well nourished, well developed white woman with improved grooming but adequate eye contact. There was less psychomotor retardation noted. There was a notable scar on the right sternocleidomastoid area. Speech was normal in regards to rate rhythm, prosody and volume. Mood described as better Her affect appeared less restricted today. Thought process appeared linear and organized. Thought content: patient denies homicidal ideation or suicidal ideation. There was no evidence of delusional thinking and she denies any auditory or visual hallucinations. Attention and concentration are grossly intact and memory appeared reliable but none were formally tested. She is alert and oriented times three. Insight and judgment are improving. Her impulse control was improving. Vitals/I&O/Wt Last Vital Signs Temp 98.0 F 07/24/22 05:55 Pulse 119 H 07/24/22 05:55 Resp 18 07/24/22 05:55 BP 106/69 07/24/22 05:55 Pulse Ox 98 07/24/22 05:55 O2 Del Method 07/21/22 06:00 Data NPU : 07/14/22 14:58 07/14/22 14:58 A&P Assessment and plan (1) Opioid use disorder, severe, on maintenance therapy: (2) Major depressive disorder, severe: (3) Methamphetamine abuse, episodic: (4) Generalized anxiety disorder: Plan This is 37 year old white woman with a history of trauma, post traumatic stress disorder and genetic loading for mental health, addiction and lethality issues who presents with passive wish and suicidal ideation reporting she is open to changes in her medications at this time. 1. Continue Abilify 5 mg p.o. every morning. Continue Wellbutrin XL 300 mg in the morning. Continue suboxone 8mg tid, Effexor xr 225mg in am, continue klonopin to .5mg bid. Continue gabapentin 600mg tid. 2. Encourage individual, group and milieu therapy 3. Continue q-15 minute check for safety 4. Encourage sober living treatment after discharge the highest level of care to which she is willing to commit. The patient is at high risk to use if discharge and given her homelessness it would be better to transition directly to inpatient rehabilitation unit next week. 5. We will contact chief revenue officer, and family to confirm that the patient could be dishcharged home to them today as the patient had previously reported that this was not an option and thus had been hospitalized here to ensure that patient would be transitioned directly to inpatient facility. Involuntary Hold Information 96 Hour Hold: 96 Hour Involuntary Admission: No Attestations NPU Medical Necessity Statement*: Inpatient hospitalization is medically necessary and the clinically appropriate intervention at this time. We will monitor medications and make changes as indicated. Likely length of stay is 4-5 days as patient would benefit from direct transition to inpatient substance abuse program strongly suggested by the patient's commissioned defence force officer. Coding Level of Care Code Established Pt Acute Mechanic Driver for Jonh Olsen Patient Type Established History Problem Focused Exam Problem Focused Medical Decision Making Straight Forward Diagnoses Opioid use disorder, severe, on maintenance therapy F11.20 Major depressive disorder, severe F32.2 Methamphetamine abuse, episodic F15.10 Generalized anxiety disorder F41.1
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
[2022-07-24] MEDS: OLANZapine 5 mg ODT PO (13:17)
[2022-07-24 14:00] VITALS: BP 90/50; PULSE 62; RESP 15; TEMP 36.6; O2SAT 97
[2022-07-24 20:26] VITALS: BP 95/61; PULSE 83; RESP 16; TEMP 36.8; O2SAT 93
[2022-07-25 06:00] VITALS: BP 96/62; PULSE 75; RESP 16; TEMP 36.8; O2SAT 92
[2022-07-25] MEDS: nicotine 2 mg Gum BUCCAL ×2 (06:21→16:45)
[2022-07-25] MEDS: venlafaxine ER (24HR) 75 mg Capsule 225 MG PO (08:26)
[2022-07-25] MEDS: buPROPion XL (24 HR) 300 mg Tablet PO (08:26)
[2022-07-25] MEDS: ARIPiprazole 10 mg Tablet 5 MG PO (08:26)
[2022-07-25] MEDS: buprenorphine-naloxone 4-1 mg Film 2 EACH SUBLINGUAL ×3 (08:26→20:44)
[2022-07-25] MEDS: gabapentin 300 mg Capsule 600 MG PO ×3 (08:26→20:44)
[2022-07-25] MEDS: CLONazepam 1 mg Tablet 0.5 MG PO ×2 (08:26→18:22)
[2022-07-25 14:00] VITALS: BP 99/55; PULSE 79; RESP 15; TEMP 36.6; O2SAT 97
[2022-07-25] MEDS: magnesium hydroxide 30 mL UDC PO (15:56)
--- NOTE | 2022-07-25 17:21 | P.NPUPN_ITS ---
Subjective NPU Subjective: Patient is a 37-year-old white female with opiate addiction and methamphetamine abuse and depression currently homeless admitted with depressed mood and suicidal ideation. Patient had reported feeling frustrated that she had to stay here and would be forced to attend the substance abuse rehab ilitation center for up to 120 days to avoid legal consequences. The patient had continue to isolate herself on the milieu. She had reported feeling down about her current situation despite having been sober for several days. She reports no suicidal thoughts at this time. She had reported that she was hopeful about seeing her daughter prior to going to the facility. She continued to minimize any actions committed by her that may have led to her hospitalization. She reported feeling tired and continued to isolate herself throughout much of the day. She had reported a history of low energy since stopping methamphetamine use. Mental Status Exam MSE Comments: This is well nourished, well developed white woman with improved grooming but adequate eye contact. There was continued presence of psychomotor retardation. Speech was normal in regards to rate rhythm, prosody and volume. Mood described as a little down. Her affect appeared less restricted today. Thought process appeared linear and organized. Thought content: patient denies homicidal ideation or suicidal ideation. There was no evidence of delusional thinking and she denies any auditory or visual hallucinations. Attention and concentration are grossly intact and memory appeared reliable but none were formally tested. She is alert and oriented times three. Insight remained poor and judgment remained poor. Her impulse control was improving slowly.. Vitals/I&O/Wt Last Vital Signs Temp 98.3 F 07/25/22 06:00 Pulse 75 07/25/22 06:00 Resp 16 07/25/22 06:00 BP 96/62 07/25/22 06:00 Pulse Ox 92 07/25/22 06:00 O2 Del Method 07/21/22 06:00 Data NPU : 07/14/22 14:58 07/14/22 14:58 A&P Assessment and plan (1) Opioid use disorder, severe, on maintenance therapy: (2) Major depressive disorder, severe: (3) Methamphetamine abuse, episodic: (4) Generalized anxiety disorder: Plan This is 37 year old white woman with a history of trauma, post traumatic stress disorder and genetic loading for mental health, addiction and lethality issues who presents with passive wish and suicidal ideation reporting she is open to changes in her medications at this time. 1. Continue Abilify 5 mg p.o. every morning. Continue Wellbutrin XL 300 mg in the morning. Continue suboxone 8mg tid, Effexor xr 225mg in am, continue klonopin to .5mg bid. Continue gabapentin 600mg tid. 2. Encourage individual, group and milieu therapy 3. Continue q-15 minute check for safety 4. Encourage sober living treatment after discharge the highest level of care to which she is willing to commit. The patient is at high risk to use if discharge and given her homelessness it would be better to transition directly to inpatient rehabilitation unit next week. 5. Patient has restraining order, she will need to continue to remain here and be transferred directly to inpatient unit courtsey of patient security vehicle patrol officer. Involuntary Hold Information 96 Hour Hold: 96 Hour Involuntary Admission: No Attestations NPU Medical Necessity Statement*: Inpatient hospitalization is medically necessary and the clinically appropriate intervention at this time her likely length of stay is 4-5 days as patient would benefit from direct transition to inpatient substance abuse program strongly suggested by the patient's security vehicle patrol officer. Coding Level of Care Code Established Pt Acute Claims Supervisor for Jonh Olsen Patient Type Established History Problem Focused Exam Problem Focused Medical Decision Making Straight Forward Diagnoses Opioid use disorder, severe, on maintenance therapy F11.20 Major depressive disorder, severe F32.2 Methamphetamine abuse, episodic F15.10 Generalized anxiety disorder F41.1
[2022-07-25] MEDS: acetaminophen 325 mg Tablet 650 MG PO (18:22)
[2022-07-25 20:07] VITALS: BP 100/62; PULSE 106; RESP 18; TEMP 36.7; O2SAT 97
[2022-07-26 06:00] VITALS: BP 96/60; PULSE 81; RESP 16; TEMP 36.7; O2SAT 96
[2022-07-26] MEDS: buprenorphine-naloxone 4-1 mg Film 2 EACH SUBLINGUAL ×3 (08:10→20:10)
[2022-07-26] MEDS: fluticasone nasal spray 16gm Btl 2 SPRAY NASAL ×2 (08:10→20:11)
[2022-07-26] MEDS: buPROPion XL (24 HR) 300 mg Tablet PO (08:10)
[2022-07-26] MEDS: OLANZapine 5 mg ODT PO (08:10)
[2022-07-26] MEDS: gabapentin 300 mg Capsule 600 MG PO ×3 (08:10→20:10)
[2022-07-26] MEDS: CLONazepam 1 mg Tablet 0.5 MG PO ×2 (08:10→17:19)
[2022-07-26] MEDS: ARIPiprazole 10 mg Tablet 5 MG PO (08:10)
[2022-07-26] MEDS: venlafaxine ER (24HR) 75 mg Capsule 225 MG PO (08:10)
[2022-07-26] MEDS: nicotine 21 mg Patch 1 PATCH TRANSDERMA (08:11)
[2022-07-26 14:00] VITALS: BP 107/68; PULSE 90; RESP 18; TEMP 36.9; O2SAT 97
--- NOTE | 2022-07-26 16:20 | W.PM.NPUPNS ---
Subjective NPU Subjective: Patient is a 37-year-old white female with opiate addiction and methamphetamine abuse and depression currently homeless admitted with depressed mood and suicidal ideation. She had reported frustration with having to be here in the hospital but stated that she understood at this time. She reported feeling more tired than usual today. Patient reported no feelings of hopelessness. She reported no cravings for opiates and no cravings for methamphetamine. She had reported being motivated about receiving treatment for substance abuse on an inpatient basis. She had reported that she understood that she would be forced to stay there for up to 120 days. Patient had reported having no recent contact with her mother or father. Mental Status Exam MSE Comments: This is well nourished, well developed white woman with improved grooming but adequate eye contact. There was continued presence of psychomotor retardation. Speech was normal in regards to rate rhythm, prosody and volume. Mood described as tired. Her affect still appeared flat. Thought process appeared linear and organized. Thought content: patient denies homicidal ideation or suicidal ideation. There was no evidence of delusional thinking and she denies any auditory or visual hallucinations. Attention and concentration are grossly intact and memory appeared reliable but none were formally tested. She is alert and oriented times three. Insight remained poor and judgment remained poor. Her impulse control was improving slowly. Vitals/I&O/Wt Last Vital Signs Temp 98.0 F 07/26/22 06:00 Pulse 81 07/26/22 06:00 Resp 16 07/26/22 06:00 BP 96/60 07/26/22 06:00 Pulse Ox 96 07/26/22 06:00 O2 Del Method 07/21/22 06:00 Data NPU : 07/14/22 14:58 07/14/22 14:58 A&P Assessment and plan (1) Opioid use disorder, severe, on maintenance therapy: (2) Major depressive disorder, severe: (3) Methamphetamine abuse, episodic: (4) Generalized anxiety disorder: Plan This is 37 year old white woman with a history of trauma, post traumatic stress disorder and genetic loading for mental health, addiction and lethality issues who presents with passive wish and suicidal ideation reporting she is open to changes in her medications at this time. 1. Continue Abilify 5 mg p.o. every morning. Continue Wellbutrin XL 300 mg in the morning. Continue suboxone 8mg tid, Effexor xr 225mg in am, continue klonopin to .5mg bid. Continue gabapentin 600mg tid. 2. Encourage individual, group and milieu therapy 3. Continue q-15 minute check for safety 4. Encourage sober living treatment after discharge the highest level of care to which she is willing to commit. The patient is at high risk to use if discharge and given her homelessness it would be better to transition directly to inpatient rehabilitation unit next week. 5. Patient has restraining order, she will need to continue to remain here and be transferred directly to inpatient unit courtsey of patient chief security and safety officer. Involuntary Hold Information 96 Hour Hold: 96 Hour Involuntary Admission: No Attestations NPU Medical Necessity Statement*: Inpatient hospitalization is medically necessary and the clinically appropriate intervention at this time her likely length of stay is 2-3 days as patient would benefit from direct transition to inpatient substance abuse program strongly suggested by the patient's chief security and safety officer. Coding Level of Care Code Established Pt Acute Dev Ops Engineer for Jonh Olsen Patient Type Established History Problem Focused Exam Problem Focused Medical Decision Making Straight Forward Diagnoses Opioid use disorder, severe, on maintenance therapy F11.20 Major depressive disorder, severe F32.2 Methamphetamine abuse, episodic F15.10 Generalized anxiety disorder F41.1
[2022-07-26 20:13] VITALS: BP 120/81; PULSE 119; RESP 16; TEMP 36.2; O2SAT 98
[2022-07-27 06:00] VITALS: BP 99/54; PULSE 100; RESP 18; TEMP 37; O2SAT 93
[2022-07-27] MEDS: buprenorphine-naloxone 4-1 mg Film 2 EACH SUBLINGUAL ×2 (08:36→14:36)
[2022-07-27] MEDS: buPROPion XL (24 HR) 300 mg Tablet PO (08:36)
[2022-07-27] MEDS: gabapentin 300 mg Capsule 600 MG PO ×3 (08:37→20:46)
[2022-07-27] MEDS: venlafaxine ER (24HR) 75 mg Capsule 225 MG PO (08:37)
[2022-07-27] MEDS: CLONazepam 1 mg Tablet 0.5 MG PO ×2 (08:37→17:48)
[2022-07-27] MEDS: OLANZapine 5 mg ODT PO (10:09)
[2022-07-27] MEDS: haloperidol 5 mg Tablet PO (11:32)
[2022-07-27 15:13] VITALS: BP 120/73; PULSE 107; RESP 18; TEMP 36.8; O2SAT 95
[2022-07-27] MEDS: ARIPiprazole 10 mg Tablet 5 MG PO (17:49)
[2022-07-27] MEDS: nicotine 2 mg Gum BUCCAL (17:50)
--- NOTE | 2022-07-27 18:07 | W.PM.NPUPNS ---
Subjective NPU Subjective: Patient presents today reporting that she is feeling optimistic about her likely discharge tomorrow. She reports a plan for the Abilify being evening dose. She reports that she will be going to a program in the [facility] that can likely be like a rehab plus. A lengthy conversation about setting goals and the 20/80 or 10/90 rule about the impact of your personal deficiencies and how they can wipe out the impact of the positives if 1 does not work towards getting them under control. We talked about how this program could could create an environment of accountability. Mental Status Exam MSE Comments: This is well nourished, well developed white woman with improved grooming but adequate eye contact. There was continued presence of resolving psychomotor retardation. Speech was normal in regards to rate rhythm, prosody and volume. Mood described as better overall, her affect was brighter than admission. Thought process appeared linear and organized. Thought content: patient denies homicidal ideation or suicidal ideation. There was no report or evidence of delusional thinking and she denies any auditory or visual hallucinations. Attention and concentration are grossly intact and memory appeared reliable but none were formally tested. She is alert and oriented times three. Insight improving and judgment remained limited but improving. Her impulse control was improving slowly. Vitals/I&O/Wt Last Vital Signs Temp 98.8 F 07/27/22 20:06 Pulse 83 07/27/22 20:06 Resp 18 07/27/22 20:06 BP 104/63 07/27/22 20:06 Pulse Ox 95 07/27/22 20:06 O2 Del Method 07/27/22 20:06 Data NPU : 07/14/22 14:58 07/14/22 14:58 A&P Assessment and plan (1) Opioid use disorder, severe, on maintenance therapy: (2) Major depressive disorder, severe: (3) Methamphetamine abuse, episodic: (4) Generalized anxiety disorder: Plan This is 37 year old white woman with a history of trauma, post traumatic stress disorder and genetic loading for mental health, addiction and lethality issues who presents with passive wish and suicidal ideation reporting she is open to changes in her medications at this time. 1. Continue Abilify 5 mg p.o. which was moved to evening dose. Continue Wellbutrin XL 300 mg in the morning. Continue suboxone 8mg tid, Effexor xr 225mg in am, continue klonopin to .5mg bid. Continue gabapentin 600mg tid. 2. Encourage individual, group and milieu therapy 3. Continue q-15 minute check for safety 4. Encourage sober living treatment after discharge the highest level of care to which she is willing to commit. The patient is at high risk to use if discharge and given her homelessness it would be better to transition directly to inpatient rehabilitation unit. 5. Patient has restraining order, she will need to continue to remain here and be transferred directly to inpatient unit courtesy of patient supply requirements officer tomorrow. Involuntary Hold Information 96 Hour Hold: 96 Hour Involuntary Admission: No Attestations NPU Medical Necessity Statement*: Inpatient hospitalization is medically necessary and the clinically appropriate intervention at this time. We will monitor medications and make changes as indicated. Tentative plan for discharge tomorrow. Coding Level of Care Code Acute Block Breaker Operator for Jonh Olsen Diagnoses Opioid use disorder, severe, on maintenance therapy F11.20 Major depressive disorder, severe F32.2 Methamphetamine abuse, episodic F15.10 Generalized anxiety disorder F41.1
[2022-07-27 20:06] VITALS: BP 104/63; PULSE 83; RESP 18; TEMP 37.1; O2SAT 95
[2022-07-27] MEDS: trazodone 50 mg Tablet PO (20:46)
[2022-07-27] MEDS: magnesium hydroxide 30 mL UDC PO (20:46)
[2022-07-27] MEDS: fluticasone nasal spray 16gm Btl 2 SPRAY NASAL (23:57)
[2022-07-28 06:00] VITALS: BP 97/61; PULSE 73; RESP 16; TEMP 36.6; O2SAT 93
[2022-07-28] MEDS: buprenorphine-naloxone 4-1 mg Film 2 EACH SUBLINGUAL ×2 (09:05→14:59)
[2022-07-28] MEDS: gabapentin 300 mg Capsule 600 MG PO ×3 (09:06→20:02)
[2022-07-28] MEDS: CLONazepam 1 mg Tablet 0.5 MG PO ×2 (09:06→17:44)
[2022-07-28] MEDS: venlafaxine ER (24HR) 75 mg Capsule 225 MG PO (09:06)
[2022-07-28] MEDS: buPROPion XL (24 HR) 300 mg Tablet PO (09:06)
[2022-07-28] MEDS: nicotine 2 mg Gum BUCCAL ×2 (09:11→15:27)
--- NOTE | 2022-07-28 13:20 | P.NPUPN_ITS ---
Subjective NPU Subjective: Patient presents today struggling with the fact that her placement cannot give her an intake until next Sunday. Initially she was quite upset and almost demanding discharge. However after a fairly lengthy discussion, she was able to articulate some of the reasons for her wanting to leave and work through those issues including wanting to see her daughter if possible. She was able to make admitted to stay at least until Sunday and we agreed to work with her staff combat information center officer to explore the possibilities for those final 48 hours. Mental Status Exam MSE Comments: This is well nourished, well developed white woman with improved grooming but adequate eye contact. There was continued presence of resolving psychomotor retardation. Speech was normal in regards to rate rhythm, prosody and volume. Mood described as upset, her affect was congruent and tearful. Thought process appeared linear and organized. Thought content: patient denies homicidal ideation or suicidal ideation. There was no report or evidence of delusional thinking and she denies any auditory or visual hallucinations. Attention and concentration are grossly intact and memory appeared reliable but none were formally tested. She is alert and oriented times three. Insight improving and judgment remained limited but improving. Her impulse control was improving slowly. Vitals/I&O/Wt Last Vital Signs Temp 97.9 F 07/28/22 06:00 Pulse 73 07/28/22 06:00 Resp 16 07/28/22 06:00 BP 97/61 07/28/22 06:00 Pulse Ox 93 07/28/22 06:00 O2 Del Method 07/28/22 06:00 Data NPU : 07/14/22 14:58 07/14/22 14:58 A&P Assessment and plan (1) Opioid use disorder, severe, on maintenance therapy: (2) Major depressive disorder, severe: (3) Methamphetamine abuse, episodic: (4) Generalized anxiety disorder: Plan This is 37 year old white woman with a history of trauma, post traumatic stress disorder and genetic loading for mental health, addiction and lethality issues who presents with passive wish and suicidal ideation reporting she is open to changes in her medications at this time. 1. Continue Abilify 5 mg p.o. which was moved to evening dose. Continue Wellbutrin XL 300 mg in the morning. Continue suboxone 8mg tid, Effexor xr 225mg in am, continue klonopin to .5mg bid. Continue gabapentin 600mg tid. 2. Encourage individual, group and milieu therapy 3. Continue q-15 minute check for safety 4. Encourage sober living treatment after discharge the highest level of care to which she is willing to commit. The patient is at high risk to use if discharge and given her homelessness it would be better to transition directly to inpatient rehabilitation unit. 5. Current plan is to attempt to get her to her intake at 9 AM on Sunday sober. She is agreed to stay at least until Sunday and will order staff combat information center officer for transfer plans. Involuntary Hold Information 96 Hour Hold: 96 Hour Involuntary Admission: No Attestations NPU Medical Necessity Statement*: Inpatient hospitalization is medically necessary and the clinically appropriate intervention at this time. We will monitor medications and make changes as indicated. Desire for discharge at 6 AM on Sunday. Coding Level of Care Code Acute Forming Roll Operator Heavy Duty for Jonh Olsen Diagnoses Opioid use disorder, severe, on maintenance therapy F11.20 Major depressive disorder, severe F32.2 Methamphetamine abuse, episodic F15.10 Generalized anxiety disorder F41.1
[2022-07-28 14:00] VITALS: BP 111/71; PULSE 80; RESP 18; TEMP 36.5; O2SAT 96
[2022-07-28] MEDS: ARIPiprazole 10 mg Tablet 5 MG PO (17:40)
[2022-07-28] MEDS: trazodone 50 mg Tablet PO (20:03)
[2022-07-28 22:00] VITALS: BP 104/68; PULSE 95; RESP 17; TEMP 36.9; O2SAT 96
[2022-07-29] MEDS: fluticasone nasal spray 16gm Btl 2 SPRAY NASAL (01:37)
[2022-07-29 06:00] VITALS: BP 88/59; PULSE 112; RESP 17; TEMP 36.4; O2SAT 96
[2022-07-29] MEDS: buprenorphine-naloxone 4-1 mg Film 2 EACH SUBLINGUAL ×3 (08:39→20:07)
[2022-07-29] MEDS: CLONazepam 1 mg Tablet 0.5 MG PO ×2 (08:40→17:54)
[2022-07-29] MEDS: gabapentin 300 mg Capsule 600 MG PO ×3 (08:40→20:07)
[2022-07-29] MEDS: venlafaxine ER (24HR) 75 mg Capsule 225 MG PO (08:40)
[2022-07-29] MEDS: buPROPion XL (24 HR) 300 mg Tablet PO (08:40)
--- NOTE | 2022-07-29 13:27 | W.PM.NPUPNS ---
Subjective NPU Subjective: Patient presents today reporting that she knows that she can make it at least until Sunday. We discussed some of her relationship challenges and overall challenges. We discussed the critical need for her to get this period of clear sobriety. She endorsed a plan to reach out to her [id number] about the possibility of seeing her daughter before going to programming. Discussed reports of her getting her needs met in healthy ways. Mental Status Exam MSE Comments: This is well nourished, well developed white woman with improved grooming but adequate eye contact. There was continued presence of resolving psychomotor retardation. Speech was normal in regards to rate rhythm, prosody and volume. Mood described as better today, her affect was congruent and less tearful. Thought process appeared linear and organized. Thought content: patient denies homicidal ideation or suicidal ideation. There was no report or evidence of delusional thinking and she denies any auditory or visual hallucinations. Attention and concentration are grossly intact and memory appeared reliable but none were formally tested. She is alert and oriented times three. Insight improving and judgment improving. Her impulse control was improving slowly. Vitals/I&O/Wt Last Vital Signs Temp 97.6 F 07/29/22 06:00 Pulse 112 H 07/29/22 06:00 Resp 17 07/29/22 06:00 BP 88/59 07/29/22 06:00 Pulse Ox 96 07/29/22 06:00 O2 Del Method 07/29/22 06:00 Data NPU : 07/14/22 14:58 07/14/22 14:58 A&P Assessment and plan (1) Opioid use disorder, severe, on maintenance therapy: (2) Major depressive disorder, severe: (3) Methamphetamine abuse, episodic: (4) Generalized anxiety disorder: Plan This is 37 year old white woman with a history of trauma, post traumatic stress disorder and genetic loading for mental health, addiction and lethality issues who presents with passive wish and suicidal ideation reporting she is open to changes in her medications at this time. 1. Continue Abilify 5 mg p.o. which was moved to evening dose. Continue Wellbutrin XL 300 mg in the morning. Continue suboxone 8mg tid, Effexor xr 225mg in am, continue klonopin to .5mg bid. Continue gabapentin 600mg tid. 2. Encourage individual, group and milieu therapy 3. Continue q-15 minute check for safety 4. Encourage sober living treatment after discharge the highest level of care to which she is willing to commit. The patient is at high risk to use if discharge and given her homelessness it would be better to transition directly to inpatient rehabilitation unit. 5. Current plan is to attempt to get her to her intake at 9 AM on Sunday sober. She is agreed to stay at least until Sunday and will order evp chief exploration officer for transfer plans. Involuntary Hold Information 96 Hour Hold: 96 Hour Involuntary Admission: No Attestations NPU Medical Necessity Statement*: Inpatient hospitalization is medically necessary and the clinically appropriate intervention at this time. We will monitor medications and make changes as indicated. Desire for discharge at 6 AM on Sunday. Coding Level of Care Code Acute Financial Retirement Plan Specialist for Jonh Olsen Diagnoses Opioid use disorder, severe, on maintenance therapy F11.20 Major depressive disorder, severe F32.2 Methamphetamine abuse, episodic F15.10 Generalized anxiety disorder F41.1
[2022-07-29 14:00] VITALS: BP 103/69; PULSE 103; RESP 18; TEMP 36.9; O2SAT 95
[2022-07-29] MEDS: nicotine 2 mg Gum BUCCAL (14:12)
[2022-07-29] MEDS: ARIPiprazole 10 mg Tablet 5 MG PO (17:53)
[2022-07-29 19:41] VITALS: BP 102/58; PULSE 112; RESP 16; TEMP 37.1; O2SAT 95
[2022-07-30 06:00] VITALS: BP 108/69; PULSE 86; RESP 16; TEMP 36.8; O2SAT 97
--- NOTE | 2022-07-30 07:56 | P.NPUPN_ITS ---
Subjective NPU Subjective: Patient presents today reporting that she wants to leave tomorrow and manage her affairs. We discussed some of her life challenges and overall plans. We discussed the critical need for her to have a period of sustained sobriety. She endorsed a plan to reach out to her [id number] about the possibility of seeing her daughter before going to programming. Discussed talking to po prior to possible discharge. Mental Status Exam MSE Comments: This is well nourished, well developed white woman with improved grooming but adequate eye contact. There was continued presence of resolving psychomotor retardation. Speech was normal in regards to rate rhythm, prosody and volume. Mood described as better, her affect was congruent. Thought process appeared linear and organized. Thought content: patient denies homicidal ideation or suicidal ideation. There was no report or evidence of delusional thinking and she denies any auditory or visual hallucinations. Attention and concentration are grossly intact and memory appeared reliable but none were formally tested. She is alert and oriented times three. Insight improving and judgment improving. Her impulse control was improving slowly. Vitals/I&O/Wt Last Vital Signs Temp 98.3 F 07/30/22 06:00 Pulse 86 07/30/22 06:00 Resp 16 07/30/22 06:00 BP 108/69 07/30/22 06:00 Pulse Ox 97 07/30/22 06:00 O2 Del Method 07/29/22 06:00 Data NPU : 07/14/22 14:58 07/14/22 14:58 A&P Assessment and plan (1) Opioid use disorder, severe, on maintenance therapy: (2) Major depressive disorder, severe: (3) Methamphetamine abuse, episodic: (4) Generalized anxiety disorder: Plan This is 37 year old white woman with a history of trauma, post traumatic stress disorder and genetic loading for mental health, addiction and lethality issues who presents with passive wish and suicidal ideation reporting she is open to changes in her medications at this time. 1. Continue Abilify 5 mg p.o. which was moved to evening dose. Continue Wellbutrin XL 300 mg in the morning. Continue suboxone 8mg tid, Effexor xr 225mg in am, continue klonopin to .5mg bid. Continue gabapentin 600mg tid. 2. Encourage individual, group and milieu therapy 3. Continue q-15 minute check for safety 4. Encourage sober living treatment after discharge the highest level of care to which she is willing to commit. The patient is at high risk to use if discharge and given her homelessness it would be better to transition directly to inpatient rehabilitation unit. 5. Current plan is to attempt to get her to her intake at 9 AM on Sunday sober. She is agreed to stay at least until Sunday and will order founder and chief technical officer for transfer plans. Involuntary Hold Information 96 Hour Hold: 96 Hour Involuntary Admission: No Attestations NPU Medical Necessity Statement*: Inpatient hospitalization is medically necessary and the clinically appropriate intervention at this time. We will monitor medications and make changes as indicated. Desire for discharge at 6 AM on Sunday. Coding Level of Care Code Acute Selvage Machine Operator for Jonh Olsen Diagnoses Opioid use disorder, severe, on maintenance therapy F11.20 Major depressive disorder, severe F32.2 Methamphetamine abuse, episodic F15.10 Generalized anxiety disorder F41.1
[2022-07-30] MEDS: buPROPion XL (24 HR) 300 mg Tablet PO (08:06)
[2022-07-30] MEDS: gabapentin 300 mg Capsule 600 MG PO ×3 (08:06→19:44)
[2022-07-30] MEDS: venlafaxine ER (24HR) 75 mg Capsule 225 MG PO (08:06)
[2022-07-30] MEDS: CLONazepam 1 mg Tablet 0.5 MG PO ×2 (08:06→17:44)
[2022-07-30] MEDS: buprenorphine-naloxone 4-1 mg Film 2 EACH SUBLINGUAL ×2 (08:06→14:53)
[2022-07-30] MEDS: haloperidol 5 mg Tablet PO (10:15)
[2022-07-30] MEDS: nicotine 2 mg Gum BUCCAL (10:17)
[2022-07-30] MEDS: diphenhydrAMINE 50 mg Capsule PO (10:18)
[2022-07-30 14:00] VITALS: BP 98/61; PULSE 84; RESP 18; TEMP 36.6; O2SAT 98
[2022-07-30] MEDS: ARIPiprazole 10 mg Tablet 5 MG PO (17:44)
[2022-07-30] MEDS: trazodone 50 mg Tablet PO (19:48)
[2022-07-30 20:31] VITALS: BP 101/65; PULSE 88; RESP 15; TEMP 36.5; O2SAT 94
[2022-07-31 06:00] VITALS: BP 104/54; PULSE 92; RESP 18; TEMP 36.8; O2SAT 95
[2022-07-31] MEDS: nicotine 21 mg Patch 1 PATCH TRANSDERMA (06:43)
[2022-07-31] MEDS: CLONazepam 1 mg Tablet 0.5 MG PO (08:15)
[2022-07-31] MEDS: buPROPion XL (24 HR) 300 mg Tablet PO (08:15)
[2022-07-31] MEDS: gabapentin 300 mg Capsule 600 MG PO (08:15)
[2022-07-31] MEDS: venlafaxine ER (24HR) 75 mg Capsule 225 MG PO (08:15)
[2022-07-31] MEDS: buprenorphine-naloxone 4-1 mg Film 2 EACH SUBLINGUAL (08:15)
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
[2022-07-31 13:01] VITALS: BP 104/54; PULSE 92; RESP 18; TEMP 36.8; O2SAT 95
== END 2022-07-31 13:00 | disposition home or self-care (01) | DRG 885 ==
LOC: ER 14:46 → NP 15:29
PROVIDERS: Admitting Provider Psychiatry & Neurology Psychiatry; Emergency Provider Emergency Medicine; Visit Provider Psychiatry & Neurology Psychiatry
DX: F33.2 Major depressive disorder, recurrent severe without psychotic features (principal); R45.851 Suicidal ideations; F11.20 Opioid dependence, uncomplicated; F10.90 Alcohol use, unspecified, uncomplicated; Z81.8 Family history of other mental and behavioral disorders; F17.200 Nicotine dependence, unspecified, uncomplicated; F12.10 Cannabis abuse, uncomplicated; F43.10 Post-traumatic stress disorder, unspecified; F15.10 Other stimulant abuse, uncomplicated; Z59.01 Sheltered homelessness; F41.1 Generalized anxiety disorder
CPT/HCPCS: 36415; 80053; 80306; 80307; 84443; 84703; 85025; 97165; 99285; J0573; Q0163

== ENCOUNTER 2022-11-04 21:57 | Emergency (ER) | payer BC, MEDICAID, SELFPAY ==
[2022-11-04 22:05] VITALS: BP 125/81; PULSE 93; RESP 16; TEMP 36.7; O2SAT 98; BMI 25.0
[2022-11-04 23:17] LABS: Basophils # 0.1 10^3/uL (0.0-0.1); Eosinophils # 0.4 10^3/uL (0.0-0.8); Eosinophils % 4.3 %; Hematocrit 46.3 % (37.0-47.0); Lymphocytes # 2.8 10^3/uL (0.8-4.8); Lymphocytes % 31.7 %; Mean Corpuscular HGB Conc 32.4 g/dL (30.0-36.0); Mean Corpuscular Hemoglobin 29.4 pg (28.0-34.0); Mean Corpuscular Volume 90.8 fl (81-99); Mean Platelet Volume 9.9 fL (7.4-10.4); Monocytes # 0.4 10^3/uL (0.2-0.9); Monocytes % 4.8 %; Neutrophils # 5.18 10^3/uL (1.8-7.7); Neutrophils % 58.1 %; Nucleated Red Blood Cells % 0 %; Platelet Count 413 10^3/cmm (130-400); Red Cell Distribution Width 13.2 % (12.1-15.1); White Blood Count 8.9 10^3/uL (4.0-10.0)
--- NOTE | 2022-11-04 23:31 | W.ED.SEIZURE ---
HPI - Seizure General: Chief Complaint: Seizure Stated Complaint: SEIZURE Time Seen by Provider: 11/04/22 22:21 History of Present Illness: HPI Narrative: 37-year-old female with a history of seizure disorder. She takes 900 mg gabapentin 3 times a day for seizures. These come in the form of 306 100 mg pills. She has not been able to fill them due to a mixup with the 2 strengths of pills to different pharmacies for the last 3 days or so. Her last seizure was 6 months ago. She denies any fever, alcohol intake, other reason for lowering her seizure threshold. complaint: seizure Onset (ago): minute(s) Description of Episode: loss of consciousness and tonic-clonic movement -: second(s) Trauma: No Seizure History: Yes Place: Home Associated symptoms: Reports other; Deny chest pain, confusion, cough, diaphoresis or fever(s) Treatments prior to arrival: none Review of Systems Const: Denies: fever(s) or diaphoresis ENMT: Denies: throat pain Card: Denies: chest pain Resp: Denies: dyspnea, productive cough or non-productive cough GI: Reports: vomiting (2 days ago); Denies: abdominal pain or diarrhea : Denies: difficulty voiding Neuro: Denies: confusion Psych: Reports: anxiety PFSH ED PFSH: Medical History Acute idiopathic urticaria Anxiety Depression Hidradenitis axillaris Nonspecific vaginitis Seizures Surgical History H/O breast augmentation [place] teeth extracted Social History Smoking and tobacco status: current every day smoker Female Reproductive History: Date of last menstrual period: 10/30/22 Physical Exam Const: COMMON NORMALS: no acute distress and alert GENERAL APPEARANCE: cooperative; not ill appearing and not frail appearing HENMT: COMMON NORMALS: normocephalic, atraumatic and Normal external nose present HEAD & SCALP: normocephalic and atraumatic FACE & SINUS: normal facial exam and face symmetric NOSE: Normal external nose present Eye: COMMON NORMALS: Equal, round and reactive pupils present and EOMs intact bilaterally PUPIL: Yes Equal, round and reactive pupils present Neck/C-Spine: GENERAL: Yes trachea midline Chest: CHEST: Yes Symmetrical chest wall rise Resp: COMMON NORMALS: normal respiratory effort, No retractions, No use of accessory muscles and clear to auscultation bilaterally AUSCULTATION: clear to auscultation bilaterally Cardio: COMMON NORMALS: regular rate and regular rhythm RATE: regular rate RHYTHM: regular rhythm GI: COMMON NORMALS: Normal to inspection, nondistended, normoactive bowel sounds present Extremity: COMMON NORMALS: no pedal edema Neuro: MERCEDES COMA SCALE: document GCS findings [place] coma scale eye opening: Spontaneous Mercedes coma scale verbal response: Orientated Mercedes coma scale motor response: Obey commands Mercedes coma scale total score: 15 SENSORIUM/ORIENTATION: Yes alert COORDINATION/BALANCE: [id number] test normal SPEECH: speech normal GAIT: Yes Normal gait present SENSORY EXAM: Yes extremities (intact) MOTOR EXAM: Pronator motor function not present and Normal motor muscle tone present throughout COORDINATION: [id number] test normal Psych: COMMON NORMALS: speech normal SPEECH: Yes normal speech Skin: COMMON NORMALS: no rashes or lesions noted GENERAL SKIN EXAM: no rashes or lesions noted Course Vital Signs: Vital signs: Vital Signs Temperature 98.1 F 11/04/22 22:05 Pulse Rate 93 11/04/22 22:05 Respiratory Rate 16 11/04/22 22:05 Blood Pressure 125/81 11/04/22 22:05 Pulse Oximetry 98 11/04/22 22:05 Oxygen Delivery Me thod 11/04/22 22:05 MDM - Seizure MDM Narrative Medical decision making narrative: Patient is back to baseline. Labs are not remarkable, save UDS + for amphetamies, BZDs, and marijuana. Radha will rewrite her medication on 1 prescription, hopefully so that she can get it filled at the appropriate dosage of 900 mg 3 times a day. She will follow-up with her doctor. Lab Data 11/04/22 23:11 11/04/22 23:11 Labs: Laboratory Results WBC 8.9 10^3/uL (4.0-10.0) 11/04/22 23:11 RBC 5.10 10^6/uL (4.1-5.3) 11/04/22 23:11 Hgb 15.0 g/dL (11.5-15.3) 11/04/22 23:11 Hct 46.3 % (37.0-47.0) 11/04/22 23:11 MCV 90.8 fl (81-99) 11/04/22 23:11 MCH 29.4 pg (28.0-34.0) 11/04/22 23:11 MCHC 32.4 g/dL (30.0-36.0) 11/04/22 23:11 RDW 13.2 % (12.1-15.1) 11/04/22 23:11 Plt Count 413 10^3/cmm (130-400) H 11/04/22 23:11 MPV 9.9 fL (7.4-10.4) 11/04/22 23:11 Neut % (Auto) 58.1 % 11/04/22 23:11 Lymph % (Auto) 31.7 % 11/04/22 23:11 [place] % (Auto) 4.8 % 11/04/22 23:11 Eos % (Auto) 4.3 % 11/04/22 23:11 Baso % (Auto) 1.0 % 11/04/22 23:11 Neut # (Auto) 5.18 10^3/uL (1.8-7.7) 11/04/22 23:11 Lymph # (Auto) 2.8 10^3/uL (0.8-4.8) 11/04/22 23:11 [place] # (Auto) 0.4 10^3/uL (0.2-0.9) 11/04/22 23:11 Eos # (Auto) 0.4 10^3/uL (0.0-0.8) 11/04/22 23:11 Baso # (Auto) 0.1 10^3/uL (0.0-0.1) 11/04/22 23:11 Nucleated RBC % (auto) 0 % 11/04/22 23:11 Nucleated RBCs # 0.0 /100WBC 11/04/22 23:11 Sodium 137 mmol/L (136-145) 11/04/22 23:11 Potassium 4.5 mmol/L (3.5-5.1) 11/04/22 23:11 Chloride 99 mmol/L (98-107) 11/04/22 23:11 Carbon Dioxide 31 mmol/L (22-29) H 11/04/22 23:11 Anion Gap 11.5 (5-19) 11/04/22 23:11 BUN 11 mg/dL (6-20) 11/04/22 23:11 Creatinine 0.7 mg/dL (0.5-0.9) 11/04/22 23:11 GFR Calculation 93.6 mL/min (90-130) 11/04/22 23:11 Glucose 88 mg/dL (65-115) 11/04/22 23:11 Calculated Osmolality 283 mOsm/kg (285-295) L 11/04/22 23:11 Calcium 9.7 mg/dL (8.5-10.5) 11/04/22 23:11 Magnesium 2.0 mg/dL (1.7-2.3) 11/04/22 23:11 Total Bilirubin 0.4 mg/dL (0.15-1.2) 11/04/22 23:11 AST 39 U/L (0-32) H 11/04/22 23:11 ALT 31 U/L (0-33) 11/04/22 23:11 Alkaline Phosphatase 110 U/L (35-105) H 11/04/22 23:11 Total Protein 7.2 g/dL (6.6-8.7) 11/04/22 23:11 Albumin 4.4 g/dL (3.5-5.2) 11/04/22 23:11 Globulin 2.8 g/dL (1.3-4.6) 11/04/22 23:11 HCG, Qual Negative (Negative) 11/04/22 23:11 Urine Color Yellow (Yellow) 11/04/22 23:41 Urine Appearance Clear (CLEAR) 11/04/22 23:41 Urine pH 7 (5-7) 11/04/22 23:41 Ur Specific [place] 1.005 (1.005-1.030) 11/04/22 23:41 Urine Protein Neg (Negative) 11/04/22 23:41 Urine Glucose (UA) Norm (Normal) 11/04/22 23:41 Urine Ketones 1+ (Negative) H 11/04/22 23:41 Urine Blood Neg (Negative) 11/04/22 23:41 Urine Nitrate Negative (Negative) 11/04/22 23:41 Urine Bilirubin Neg (Negative) 11/04/22 23:41 Urine Urobilinogen Neg mg/dL (Negative) 11/04/22 23:41 Ur Leukocyte Esterase Negative (Negative) 11/04/22 23:41 Urine Opiates Screen Negative ng/mL (Negative) 11/04/22 23:41 Ur Barbiturates Screen Negative ng/mL (Negative) 11/04/22 23:41 Ur Phencyclidine Scrn Negative ng/mL (Negative) 11/04/22 23:41 Ur Amphetamines Screen Positive ng/mL (Negative) H 11/04/22 23:41 U Benzodiazepines Scrn Positive ng/mL (Negative) H 11/04/22 23:41 Urine Cocaine Screen Negative ng/mL (Negative) 11/04/22 23:41 U Marijuana (THC) Screen Positive ng/mL (Negative) H 11/04/22 23:41 Ethyl Alcohol < 10 mg/dL (0-10) 11/04/22 23:11 Discharge Plan Discharge Patient Disposition: Home Clinical Impression: Generalized seizure Condition: Stable Prescriptions: New gabapentin 600 mg tablet 600 mg PO TID Qty: 90 0RF gabapentin 300 mg capsule 300 mg PO TID Qty: 90 0RF Discontinued gabapentin 600 mg Tablet 600 mg PO TID 30 Days Qty: 90 1RF No Action mupirocin 2 % ointment 1 applic topical BID PRN (Reason: Wound Care) lidocaine 5 % gel 1 ea topical QID PRN (Reason: Breakthrough Pain) venlafaxine 75 mg Capsule,Extended Release 24hr 225 mg PO DAILY 30 Days Qty: 90 1RF trazodone 50 mg Tablet 50 mg PO BEDTIME PRN (Reason: Sleep) 30 Days Qty: 30 1RF aripiprazole 10 mg Tablet 5 mg PO 1800 30 Days Qty: 15 1RF bupropion HCl 300 mg Tablet Extended Release 24 Hr 300 mg PO DAILY 30 Days Qty: 30 1RF fluticasone propionate 50 mcg/actuation [place],Suspension 2 spray nasal BID PRN (Reason: Congestion) 30 Days Qty: 1 1RF hydroxyzine HCl 50 mg tablet 50 mg PO TID PRN (Reason: Anxiety) 30 Days Qty: 90 1RF Rx Instructions: TAKE 1 TABLET BY MOUTH THREE TIMES DAILY NEEDED FOR ITCHING/anxiety. Discharge Orders: Discharge ED (Routine); Ordered 11/04/22 Ordered By: Eugene Fitch Patient Instructions: Recurrent Seizures in Adults (ED) Coding Level of Care Code ED Business Broker for Jonh Olsen
[2022-11-04 23:32] LABS: HCG, Serum Qual Negative (Negative)
[2022-11-04 23:35] LABS: Alanine Aminotransferase 31 U/L (0-33); Albumin Level 4.4 g/dL (3.5-5.2); Alkaline Phosphatase 110 U/L (35-105); Anion Gap 11.5 (5-19); Aspartate Amino Transferase 39 U/L (0-32); Blood Urea Nitrogen 11 mg/dL (6-20); Calcium 9.7 mg/dL (8.5-10.5); Carbon Dioxide 31 mmol/L (22-29); Chloride 99 mmol/L (98-107); Globulin 2.8 g/dL (1.3-4.6); Glomerular Filtration Rate 93.6 mL/min (90-130); Glucose 88 mg/dL (65-115); Osmolality Calculated 283 mOsm/kg (285-295); Potassium 4.5 mmol/L (3.5-5.1); Sodium 137 mmol/L (136-145); Total Bilirubin 0.4 mg/dL (0.15-1.2); Total Protein 7.2 g/dL (6.6-8.7)
[2022-11-04 23:44] LABS: Alcohol Level < 10 mg/dL (0-10)
[2022-11-04] MEDS: CLONazepam 1 mg Tablet PO (23:44)
[2022-11-04] MEDS: gabapentin 300 mg Capsule 900 MG PO (23:44)
[2022-11-05 00:26] LABS: Add Urine Microscopic? NO; Charge for UA Resulting for Rev
[2022-11-05 00:34] LABS: Bilirubin Urine Neg (Negative); Blood Urine Neg (Negative); Glucose Urine UA Norm (Normal); Ketones Urine 1+ (Negative); Nitrate Urine Negative (Negative); Protein Urine Neg (Negative); Specific Gravity, Urine 1.005 (1.005-1.030); Urine Appearance Clear (CLEAR); Urine Color Yellow (Yellow); pH Urine 7 (5-7)
[2022-11-05 00:35] LABS: Leukocyte Esterase Urine Negative (Negative); Urobilinogen Urine Neg (Negative)
[2022-11-05 00:37] LABS: Amphetamines Screen Urine Positive (Negative); Barbiturates Screen Urine Negative (Negative); Benzodiazepines Screen Urine Positive (Negative); Cocaine Screen Urine Negative (Negative); Opiate Screen Urine Negative (Negative); PCP Screen Urine Negative (Negative); THC Screen Urine Positive (Negative)
== END 2022-11-04 23:59 | disposition home or self-care (01) ==
PROVIDERS: Emergency Provider Emergency Medicine
DX: G40.409 Other generalized epilepsy and epileptic syndromes, not intractable, without status epilepticus (principal); F17.210 Nicotine dependence, cigarettes, uncomplicated
CPT/HCPCS: 80053; 80306; 80307; 81003; 83735; 84703; 85025; 99283

== ENCOUNTER 2023-02-26 15:55 | Outpatient (CLI) | payer BC, MEDICAID, SELFPAY ==
--- NOTE | 2023-02-26 15:30 | US_ITS ---
WS: [id number] ULTRASOUND OB COMPLETE TECHNIQUE: Complete ultrasound. CLINICAL INFORMATION: O09.899 - Supervision of other high risk pregnancies, uns... COMPARISON: None. Unsure of LMP FINDINGS: Cervix is long and closed measuring 4.2 cm Single interuterine gestation is identified with cephalic presentation. Placenta is posterior. Placenta grade 0. Normal amniotic fluid volume. cardiac activity: 150 BPM. AGA: 16w4d KIARRA by ultrasound: 08/09/2023 Estimated weight: 152 g; 0 lbs. 5 oz. BDP: 3.6 cm = 17w0d HC: 13.3 cm = 16w6d AC: 10.2 cm = 16w1d FEMUR LENGTH: 2.1 cm = 16w2d Anatomic survey: profile not visualized. Outflow tracts not well visualized. Four-chamber heart not well visualized. Upper lip not visualized. Anatomic survey is otherwise normal. Normal stomach. Kidneys and bladder are normal. Normal 3 vessel cord. Normal 3 vessel cord insertion. Normal spine. Intracranial contents are normal. Normal posterio r fossa and cisterna magna. US/US OB >= 14 weeks fetus [id number] IMPRESSION: 1. Single intrauterine with visualized cardiac activity. AGA 16w4d w ith KIARRA 08/09/2023 based on ultrasound. Patient unsure of LMP 2. Placenta is posterior. No evidence of abruption or previa. 3. profile not visualized. Outflow tracks not well visualized. Four-jeremiah jose a heart not well visualized. Upper lip not visualized. Recommend interval fol low-up in 3-4weeks for additional anatomy detail. 4. anatomic survey is otherwise normal. 5. Normal amniotic fluid volume.
== END 2023-02-26 15:56 | disposition home or self-care (01) ==
LOC: RAD 15:58
PROVIDERS: PCP Obstetrics & Gynecology; Visit Provider Obstetrics & Gynecology
DX: O09.892 Supervision of other high risk pregnancies, second trimester (principal); Z3A.16 16 weeks gestation of pregnancy
CPT/HCPCS: 76805

== ENCOUNTER → 2023-03-02 13:00 | Outpatient (BNVA) | payer BC, MEDICAID, SELFPAY | PROVIDERS: PCP Obstetrics & Gynecology; Visit Provider Obstetrics & Gynecology | DX: O09.899 Supervision of other high risk pregnancies, unspecified trimester (principal); Z3A.00 Weeks of gestation of pregnancy not specified | CPT/HCPCS: 80307; 84443; 85027; 86592; 86762; 86803; 86850; 86900; 87077; 87086; 87184; 87340; 87491; 87522; 87591; 87624; 87661; 87806 ==

== ENCOUNTER 2023-03-16 18:56 | Emergency (ER) | payer BC, MEDICAID, SELFPAY ==
[2023-03-16 19:07] VITALS: BP 114/61; PULSE 91; RESP 18; TEMP 36.9; O2SAT 98; BMI 28.8
[2023-03-16 19:18] LABS: Basophils # 0.1 10^3/uL (0.0-0.1); Basophils % 0.7 %; Eosinophils # 0.7 10^3/uL (0.0-0.8); Hematocrit 36.8 % (37.0-47.0); Lymphocytes # 2.9 10^3/uL (0.8-4.8); Lymphocytes % 21.1 %; Mean Corpuscular HGB Conc 32.6 g/dL (30.0-36.0); Mean Corpuscular Hemoglobin 30.8 pg (28.0-34.0); Mean Corpuscular Volume 94.4 fl (81-99); Mean Platelet Volume 10.2 fL (7.4-10.4); Monocytes # 0.7 10^3/uL (0.2-0.9); Monocytes % 4.9 %; Neutrophils # 9.07 10^3/uL (1.8-7.7); Neutrophils % 66.8 %; Nucleated Red Blood Cells % 0 %; Platelet Count 236 10^3/cmm (130-400); White Blood Count 13.6 10^3/uL (4.0-10.0)
[2023-03-16 19:42] LABS: Alanine Aminotransferase 18 U/L (0-33); Albumin Level 3.4 g/dL (3.5-5.2); Alkaline Phosphatase 74 U/L (35-105); Aspartate Amino Transferase 23 U/L (0-32); Blood Urea Nitrogen 12 mg/dL (6-20); Calcium 8.1 mg/dL (8.5-10.5); Carbon Dioxide 19 mmol/L (22-29); Chloride 106 mmol/L (98-107); Globulin 2.1 g/dL (1.3-4.6); Glomerular Filtration Rate 111.9 mL/min (90-130); Glucose 93 mg/dL (65-115); Osmolality Calculated 277 mOsm/kg (285-295); Sodium 134 mmol/L (136-145); Total Bilirubin 0.2 mg/dL (0.15-1.2); Total Protein 5.5 g/dL (6.6-8.7)
--- NOTE | 2023-03-16 19:45 | ED_ITS ---
HPI - Abdominal Pain General: Chief Complaint: Abdominal Pain Stated Complaint: 19 weeks , stomach cramps Time Seen by Provider: 03/16/23 19:02 History of Present Illness: Patient presents to the ER by EMS with complaints of upper abdominal pain. Patient says she started having an argument with her roommate and her upper epigastric area started hurting. When she also had some nausea and vomiting. Patient states that when the argument was over the pain resolved by time she arrived here to the ER for further work-up and evaluation. Patient is approximately 19 weeks and has not had any complications to this . Review of Systems General: Reports: 10 or more systems reviewed and unremarkable except in HPI and below PFSH ED PFSH: Medical History Anxiety Depression Hidradenitis axillaris Seizures Surgical History H/O breast augmentation [place] teeth extracted Physical Exam Const: COMMON NORMALS: no acute distress, average body habitus, patient oriented x3, no limitations, healthy appearing, alert and well nourished Neck/C-Spine: COMMON NORMALS: no JVD Chest: COMMONS NORMALS: normal inspection of the chest and normal palpation of entire chest wall Resp: COMMON NORMALS: normal respiratory effort, No retractions, No use of accessory muscles and clear to auscultation bilaterally AUSCULTATION: clear to auscultation bilaterally Cardio: COMMON NORMALS: no JVD, regular rate, regular rhythm, S1 normal heart sound present, S2 normal heart sound present, No gallops present (Cardio), No clicks present (Cardio), No murmurs present (Cardio) and No rub (Cardio) RATE : regular rate RHYTHM: regular rhythm HEART SOUNDS: S1 normal heart sound present and S2 normal heart sound present GI: COMMON NORMALS: Normal to inspection, nondistended, normoactive bowel sounds present, Soft to palpation, non-tender and No hepatosplenomegaly present PALPATION: Yes Soft to palpation and Yes No hepatosplenomegaly present OTHER: Gravid heart tones was approximate 150 bpm. Neuro: COMMON NORMALS: patient oriented x3 SENSORIUM/ORIENTATION: Yes alert Course Vital Signs: Vital signs: Vital Signs Temperature 98.5 F 03/16/23 19:07 Pulse Rate 91 03/16/23 19:07 Respiratory Rate 18 03/16/23 19:07 Blood Pressure 114/61 03/16/23 19:07 Pulse Oximetry 98 03/16/23 19:07 Oxygen Delivery Me thod Room Air 03/16/23 19:07 MDM - Abdominal Pain Medical Decision Making Patient presents to the ER with complaints of epigastric pain with nausea vomiting after argument with her roommate. This pain resolved a short time later. Lab work was obtained which was unremarkable. By the time exam was performed patient stated she was at 100% asymptomatic. Patient be discharged home with a diagnosis of epigastric abdominal pain. Patient is to follow-up with her PCP/ZIPPER REPAIRER within the next 1 week or sooner as needed. Differential Diagnosis Likely abdominal pain; Unlikely acute appendicitis, calculus of kidney, constipation, diverticulitis, endometriosis, gastroenteritis, pancreatitis or small bowel obstruction Medical Records I reviewed the patient's medical records. Lab Data I reviewed the patient's lab results. 03/16/23 19:13 03/16/23 19:13 Labs/Radiology: Laboratory Results WBC 13.6 10^3/uL (4.0-10.0) H 03/16/23 19:13 RBC 3.90 10^6/uL (4.1-5.3) L 03/16/23 19:13 Hgb 12.0 g/dL (11.5-15.3) 03/16/23 19:13 Hct 36.8 % (37.0-47.0) L 03/16/23 19:13 MCV 94.4 fl (81-99) 03/16/23 19:13 MCH 30.8 pg (28.0-34.0) 03/16/23 19:13 MCHC 32.6 g/dL (30.0-36.0) 03/16/23 19:13 RDW 14.0 % (12.1-15.1) 03/16/23 19:13 Plt Count 236 10^3/cmm (130-400) 03/16/23 19:13 MPV 10.2 fL (7.4-10.4) 03/16/23 19:13 Neut % (Auto) 66.8 % 03/16/23 19:13 Lymph % (Auto) 21.1 % 03/16/23 19:13 [place] % (Auto) 4.9 % 03/16/23 19:13 Eos % (Auto) 5.0 % 03/16/23 19:13 Baso % (Auto) 0.7 % 03/16/23 19:13 Neut # (Auto) 9.07 10^3/uL (1.8-7.7) H 03/16/23 19:13 Lymph # (Auto) 2.9 10^3/uL (0.8-4.8) 03/16/23 19:13 [place] # (Auto) 0.7 10^3/uL (0.2-0.9) 03/16/23 19:13 Eos # (Auto) 0.7 10^3/uL (0.0-0.8) 03/16/23 19:13 Baso # (Auto) 0.1 10^3/uL (0.0-0.1) 03/16/23 19:13 Nucleated RBC % (auto) 0 % 03/16/23 19:13 Nucleated RBCs # 0.0 /100WBC 03/16/23 19:13 Sodium 134 mmol/L (136-145) L 03/16/23 19:13 Potassium 4.0 mmol/L (3.5-5.1) 03/16/23 19:13 Chloride 106 mmol/L (98-107) 03/16/23 19:13 Carbon Dioxide 19 mmol/L (22-29) L 03/16/23 19:13 Anion Gap 13.0 (5-19) 03/16/23 19:13 BUN 12 mg/dL (6-20) 03/16/23 19:13 Creatinine 0.6 mg/dL (0.5-0.9) 03/16/23 19:13 GFR Calculation 111.9 mL/min (90-130) 03/16/23 19:13 Glucose 93 mg/dL (65-115) 03/16/23 19:13 Calculated Osmolality 277 mOsm/kg (285-295) L 03/16/23 19:13 Calcium 8.1 mg/dL (8.5-10.5) L 03/16/23 19:13 Total Bilirubin 0.2 mg/dL (0.15-1.2) 03/16/23 19:13 AST 23 U/L (0-32) 03/16/23 19:13 ALT 18 U/L (0-33) 03/16/23 19:13 Alkaline Phosphatase 74 U/L (35-105) 03/16/23 19:13 Total Protein 5.5 g/dL (6.6-8.7) L 03/16/23 19:13 Albumin 3.4 g/dL (3.5-5.2) L 03/16/23 19:13 Globulin 2.1 g/dL (1.3-4.6) 03/16/23 19:13 Discharge Plan Discharge Patient Disposition: Home Clinical Impression: Abdominal pain, epigastric Qualifiers: Weeks of gestation: 19 weeks Qualified Code(s): Z3A.19 - 19 weeks gestation of Condition: Stable Prescriptions: No Action buprenorphine-naloxone [Suboxone] 8-2 mg film 2 film buccal Q24H Rx Instructions: place 1 film on inside of (each) cheek venlafaxine 75 mg capsule,extended release 24hr 225 mg PO DAILY 7 Days Qty: 21 0RF ondansetron HCl 4 mg tablet 4 mg PO Q6H Qty: 30 2RF promethazine 25 mg tablet 25 mg PO Q6H PRN (Reason: nausea and vomiting) Qty: 30 2RF metoclopramide HCl [Reglan] 10 mg tablet 10 mg PO Q6H PRN (Reason: nausea and vomiting) Qty: 30 2RF levothyroxine 50 mcg tablet 50 mcg PO DAILY Qty: 30 6RF penicillin V potassium 500 mg tablet 500 mg PO TID Qty: 30 0RF mupirocin 2 % ointment 1 applic topical BID PRN (Reason: Wound Care) lidocaine 5 % gel 1 ea topical QID PRN (Reason: Breakthrough Pain) trazodone 50 mg Tablet 50 mg PO BEDTIME PRN (Reason: Sleep) 30 Days Qty: 30 1RF aripiprazole 10 mg Tablet 5 mg PO 1800 30 Days Qty: 15 1RF bupropion HCl 300 mg Tablet Extended Release 24 Hr 300 mg PO DAILY 30 Days Qty: 30 1RF fluticasone propionate 50 mcg/actuation [place],Suspension 2 spray nasal BID PRN (Reason: Congestion) 30 Days Qty: 1 1RF hydroxyzine HCl 50 mg tablet 50 mg PO TID PRN (Reason: Anxiety) 30 Days Qty: 90 1RF Rx Instructions: TAKE 1 TABLET BY MOUTH THREE TIMES DAILY NEEDED FOR ITCHING/anxiety. gabapentin 600 mg tablet 600 mg PO TID Qty: 90 0RF gabapentin 300 mg capsule 300 mg PO TID Qty: 90 0RF Discharge Orders: Discharge ED (Routine); Ordered 03/16/23 Ordered By: Mariano Lechuga Referrals: Anabelle Lima MD [Primary Care Provider] - 1 week Patient Instructions: Epigastric Pain (ED) Activity Restrictions/Additional Instructions: Please follow-up with your ZIPPER REPAIRER and/or PCP in the next 1 week for further evaluation and treatment. If this pain returns or worsens. Please feel free to return to the ER. Coding Level of Care Code ED Nursing Program Coordinator for Jonh Olsen
== END 2023-03-16 20:22 | disposition home or self-care (01) ==
PROVIDERS: Emergency Provider Emergency Medicine; PCP Obstetrics & Gynecology
DX: O26.892 Other specified pregnancy related conditions, second trimester (principal); R10.13 Epigastric pain; R11.2 Nausea with vomiting, unspecified; Z3A.19 19 weeks gestation of pregnancy
CPT/HCPCS: 36415; 80053; 85025; 99283

== ENCOUNTER → 2023-04-02 16:00 | Outpatient (BNVA) | payer BC, MEDICAID, SELFPAY | PROVIDERS: PCP Obstetrics & Gynecology; Visit Provider Obstetrics & Gynecology | DX: O09.899 Supervision of other high risk pregnancies, unspecified trimester (principal); Z3A.00 Weeks of gestation of pregnancy not specified; E03.9 Hypothyroidism, unspecified | CPT/HCPCS: 81000; 84443 ==

== ENCOUNTER 2023-04-08 20:03 | Outpatient (CLI) | payer BC, MEDICAID, SELFPAY ==
[2023-04-08 19:55] VITALS: BMI 29.4
[2023-04-08 20:19] VITALS: BP 116/54; PULSE 81
[2023-04-08 20:51] VITALS: BP 113/72; PULSE 76
[2023-04-08 21:06] VITALS: BP 115/56; PULSE 79
[2023-04-08 21:20] VITALS: BP 115/55; PULSE 85
[2023-04-08] MEDS: ondansetron 4 MG Tablet PO (21:24)
[2023-04-08] MEDS: metoclopramide 10 mg Tablet PO (21:24)
[2023-04-08 21:30] VITALS: BP 115/55; PULSE 85; RESP 16; TEMP 36.3
== END 2023-04-08 21:30 | disposition home or self-care (01) ==
LOC: OPOB 20:03 → OBGYN 20:04
PROVIDERS: PCP Obstetrics & Gynecology; Visit Provider Obstetrics & Gynecology
DX: O21.9 Vomiting of pregnancy, unspecified (principal); Z3A.00 Weeks of gestation of pregnancy not specified
CPT/HCPCS: 99211; J8597; Q0162

== ENCOUNTER → 2023-05-25 15:47 | Outpatient (BNVA) | payer BC, MEDICAID, SELFPAY | PROVIDERS: PCP Obstetrics & Gynecology; Visit Provider Obstetrics & Gynecology | DX: O09.899 Supervision of other high risk pregnancies, unspecified trimester (principal) | CPT/HCPCS: 80307; 81000; 82950; 85025 ==

== ENCOUNTER → 2023-06-01 14:24 | Outpatient (BNVA) | payer BC, MEDICAID, SELFPAY | PROVIDERS: PCP Obstetrics & Gynecology; Visit Provider Obstetrics & Gynecology | DX: O09.899 Supervision of other high risk pregnancies, unspecified trimester (principal) | CPT/HCPCS: 81000 ==

== ENCOUNTER → 2023-06-15 13:25 | Outpatient (BNVA) | payer BC, MEDICAID, SELFPAY | PROVIDERS: PCP Obstetrics & Gynecology; Visit Provider Obstetrics & Gynecology | DX: O09.899 Supervision of other high risk pregnancies, unspecified trimester (principal); O09.30 Supervision of pregnancy with insufficient antenatal care, unspecified trimester | CPT/HCPCS: 81000 ==

== ENCOUNTER → 2023-06-29 07:41 | Outpatient (BNVA) | payer BC, MEDICAID, SELFPAY | PROVIDERS: PCP Obstetrics & Gynecology; Visit Provider Nurse Practitioner Women's Health | DX: O09.899 Supervision of other high risk pregnancies, unspecified trimester (principal); O21.9 Vomiting of pregnancy, unspecified; F41.1 Generalized anxiety disorder; F15.10 Other stimulant abuse, uncomplicated; F32.2 Major depressive disorder, single episode, severe without psychotic features; F11.20 Opioid dependence, uncomplicated; O09.529 Supervision of elderly multigravida, unspecified trimester; O09.30 Supervision of pregnancy with insufficient antenatal care, unspecified trimester; B19.20 Unspecified viral hepatitis C without hepatic coma | CPT/HCPCS: 81000 ==

== ENCOUNTER → 2023-07-13 13:41 | Outpatient (BNVA) | payer BC, MEDICAID, SELFPAY | PROVIDERS: PCP Obstetrics & Gynecology; Visit Provider Obstetrics & Gynecology | DX: O09.529 Supervision of elderly multigravida, unspecified trimester | CPT/HCPCS: 81000; 87081 ==

== ENCOUNTER → 2023-07-17 15:25 | Outpatient (BNVA) | payer BC, MEDICAID, SELFPAY | PROVIDERS: PCP Obstetrics & Gynecology; Visit Provider Obstetrics & Gynecology | DX: O36.5930 Maternal care for other known or suspected poor fetal growth, third trimester, not applicable or unspecified (principal); Z3A.34 34 weeks gestation of pregnancy | CPT/HCPCS: 76816; 76820 ==

== ENCOUNTER → 2023-07-24 13:31 | Outpatient (BNVA) | payer BC, MEDICAID, SELFPAY | PROVIDERS: PCP Obstetrics & Gynecology; Visit Provider Obstetrics & Gynecology | DX: Z34.93 Encounter for supervision of normal pregnancy, unspecified, third trimester (principal); Z3A.37 37 weeks gestation of pregnancy | CPT/HCPCS: 76819; 76820 ==

== ENCOUNTER → 2023-07-27 15:48 | Outpatient (BNVA) | payer BC, MEDICAID, SELFPAY | PROVIDERS: PCP Obstetrics & Gynecology; Visit Provider Obstetrics & Gynecology | DX: O09.899 Supervision of other high risk pregnancies, unspecified trimester (principal); Z3A.00 Weeks of gestation of pregnancy not specified | CPT/HCPCS: 81000 ==

== ENCOUNTER 2023-08-04 11:54 | Inpatient (IN) | payer BC, MEDICAID, SELFPAY ==
[2023-08-04] VITALS (33 sets, daily range): BP systolic 110–165; BP diastolic 57–77; PULSE 80–131; RESP 14–18; TEMP 36–36.8; O2SAT 96–100; BMI 32.3
[2023-08-04 02:29] LABS: Basophils # 0.1 10^3/uL (0.0-0.1); Basophils % 0.5 %; Eosinophils # 0.4 10^3/uL (0.0-0.8); Eosinophils % 2.2 %; Hematocrit 33.6 % (36-47); Lymphocytes # 3.1 10^3/uL (0.8-4.8); Lymphocytes % 19.8 %; Mean Corpuscular Hemoglobin 29.9 pg (27-33); Mean Corpuscular Volume 90.6 fl (85-98); Mean Platelet Volume 10.7 fL (7.4-10.4); Monocytes % 6.2 %; Neutrophils # 10.91 10^3/uL (1.8-7.7); Neutrophils % 69.6 %; Nucleated Red Blood Cells % 0 %; Platelet Count 314 10^3/cmm (157-399); Red Blood Count 3.71 10^6/uL (3.85-5.65)
[2023-08-04] MEDS: miSOPROStol 100 mcg tablet 25 MCG VAGINAL ×3 (02:42→13:01)
[2023-08-04 05:30] LABS: Amphetamines Screen Urine Negative (Negative); Barbiturates Screen Urine Negative (Negative); Benzodiazepines Screen Urine Negative (Negative); Cocaine Screen Urine Negative (Negative); Opiate Screen Urine Negative (Negative); PCP Screen Urine Negative (Negative); THC Screen Urine Positive (Negative)
--- NOTE | 2023-08-04 07:00 | PM.OPHPUD ---
Labor & Delivery H&P Update Date of Procedure: August 04, 2023 Date H&P Performed: 07/27/23 Changes to previous documentation: 38-year-old female at 39 weeks gestation with LMP 10/03/2022 and KIARRA 08/09/2023, admitted to for Elective IOL. record reviewed. Admission Diagnosis: 39wk IUP History of hepatitis C History of epilepsy (last seizure 2 years ago) History of methamphetamine abuse History of opiate abuse and maintenance therapy History of generalized anxiety disorder Advanced maternal age High risk Cannabis abuse Primary indication for procedure: Induction of labor at 39 weeks gestation Planned procedure: Cervical ripening with Cytotec Pitocin induction
[2023-08-04] MEDS: fentaNYL 50 mcg/mL INJ 2mL 25 MCG IVP (15:06)
--- NOTE | 2023-08-04 16:23 | PM.DELIVERY ---
Delivery Note: Date of delivery: August 04, 2023 Pre-delivery diagnoses: 39 wk IUP for IOL Hep C Advanced Maternal Age Hx of Drug abuse(Multiple) Procedure: viable male Op report anesthesia: None Delivering Physician: Jian ARTHUR Estimated blood loss (mL): 300 Findings: Viable male Delivery: Pt quickly progressed from 4cm to 8cm, then complete/+2 and delivered via a viable male OA with Nuchal and left arm and body cord. Spontaneous cry noted. Cord clamped and cut and baby placed on warmer for Nursing assessment. 3vessel cord noted. Cord blood collected and handed off. Uterus messaged and placenta delivered with trailing membranes. Small perineal laceration repaired with SIS 3.0 vicryl. Uterus and vaginal vault expressed. Pitocin IV solution started in bolus fashion. Uterus messaged and noted to be firm. Mother and infant stable. 7/8 EBL- 300ml Comp- none Wt- pending Anest-none History History History 3 Term 2 0 Miscarriages/Ectopic 0 Living Children 2 A&P Assessment and plan (1) 39 weeks gestation of : (2) Hepatitis C: (3) Late care: (4) AMA (advanced maternal age) multigravida 35+: (5) Supervision of other high-risk : (6) Generalized anxiety disorder: (7) Methamphetamine abuse, episodic: (8) Major depressive disorder, severe: (9) Opioid use disorder, severe, on maintenance therapy: (10) Cannabis abuse: (11) Epilepsy affecting in third trimester: (12) Neuropathy of left thigh: Coding Level of Care Code Acute Code for Chg Fwd Diagnoses 39 weeks gestation of Z3A.39 Hepatitis C B19.20 Late care O09.30 AMA (advanced maternal age) multigravida 35+ O09.529 Supervision of other high-risk O09.899 Generalized anxiety disorder F41.1 Methamphetamine abuse, episodic F15.10 Major depressive disorder, severe F32.2 Opioid use disorder, severe, on maintenance therapy F11.20 Cannabis abuse F12.10 Epilepsy affecting in third trimester O99.353; G40.909 Neuropathy of left thigh G57.92
[2023-08-04] MEDS: ibuprofen 800 mg tablet PO (21:04)
--- NOTE | 2023-08-04 22:33 | PC.NURSE ---
This nurse rounding on patient MOB found to be sleeping with on her chest. Educated patient on safe sleeping practices and placed in open crib. MOB verbalized understanding.
[2023-08-05 00:40] VITALS: BP 129/79; PULSE 99; RESP 16; O2SAT 97
--- NOTE | 2023-08-05 00:41 | PC.NURSE ---
This RN rounding on patient at this time. MOB sitting up in bed feeding baby while baby is laying flat in open crib. Educated mother on safe feeding practices. MOB verbalized understanding.
[2023-08-05 02:04] VITALS: BP 106/64; PULSE 88; RESP 15; TEMP 36.8; O2SAT 97
[2023-08-05 04:49] LABS: Hematocrit 31.5 % (36-47); Mean Corpuscular Hemoglobin 30.1 pg (27-33); Mean Corpuscular Volume 91.3 fl (85-98); Mean Platelet Volume 9.8 fL (7.4-10.4); Platelet Count 283 10^3/cmm (157-399); Red Blood Count 3.45 10^6/uL (3.85-5.65); Red Cell Distribution Width 14.1 % (12.1-15.1); White Blood Count 16.18 10^3/uL (3.29-11.43)
[2023-08-05] MEDS: prenatal vitamin Capsule 1 CAP PO (08:46)
[2023-08-05] MEDS: ibuprofen 800 mg tablet PO ×2 (08:46→21:02)
[2023-08-05] MEDS: docusate sodium 100 mg Capsule PO ×2 (08:46→21:02)
[2023-08-05 10:00] VITALS: BP 117/69; PULSE 86; RESP 17; TEMP 36.8; O2SAT 97
--- NOTE | 2023-08-05 10:15 | PM.OBGYPN ---
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 Patient denies headaches, blurred vision, chest pain or shortness of breath. She denies pain other than occasional cramping. She states her bleeding is very light. She states she will bottle and breast-feed. She understands that the jet aircraft servicer will keep the baby here in the unit for several days due to her Suboxone treatment. Postdelivery and discharge expectations were reviewed with her to include no heavy lifting pushing or pulling. No sexual intercourse x6 weeks. She is advised to use her pads during this postdelivery bleeding. If excessive bleeding is noted she is to return either to the emergency room or to her OB physician. She was counseled on using only ibuprofen or Tylenol for pain. She is to restart her medications from home. Patient also advised to continue her vitamins daily. Patient verbalizes understanding... Labor: Station: +4 Amniotic Membrane Status: Ruptured Monitor Mode: External Contraction Pattern: Regular Vitals/I&O/Wt Last Vital Signs Temp 98.3 F 08/05/23 02:04 Pulse 88 08/05/23 02:04 Resp 15 08/05/23 02:04 BP 106/64 08/05/23 02:04 Pulse Ox 97 08/05/23 02:04 O2 Del Method Room Air 08/05/23 02:04 08/04/23 08/05/23 08/05/23 22:59 06:59 14:59 Intake Total 1000 / 1000 Balance 1000 / 1000 Weight last 48 hrs Weight 96.615 kg Weight 96.615 kg Physical Exam Back/Pelvis: OTHER: Abdomen?soft, fundus firm 2 centimeters below umbilicus. Lochia light. Extremity: NARRATIVE EXTREMITY EXAM: No edema, negative Homans' sign. Data 08/05/23 04:23 A&P Assessment and plan (1) (spontaneous vaginal delivery): Plan #1 we will discharge patient today, but my room and with the baby. Baby boy will remain observed in house due to patient's Suboxone use. 2. Patient to call and schedule a 4-week visit with the OB clinic. 3. Patient advised to resume home medications as well as vitamins. (2) 39 weeks gestation of : (3) Epilepsy affecting in third trimester: (4) Hepatitis C: (5) Late care: (6) AMA (advanced maternal age) multigravida 35+: (7) Supervision of other high-risk : (8) Generalized anxiety disorder: (9) Methamphetamine abuse, episodic: (10) Major depressive disorder, severe: (11) Opioid use disorder, severe, on maintenance therapy: (12) Cannabis abuse: Attestations Medical Necessity Statement*: Patient was admitted for induction of labor. Coding Level of Care Code Acute Code for Chg Fwd Diagnoses (spontaneous vaginal delivery) O80 39 weeks gestation of Z3A.39 Epilepsy affecting in third trimester O99.353; G40.909 Hepatitis C B19.20 Late care O09.30 AMA (advanced maternal age) multigravida 35+ O09.529 Supervision of other high-risk O09.899 Generalized anxiety disorder F41.1 Methamphetamine abuse, episodic F15.10 Major depressive disorder, severe F32.2 Opioid use disorder, severe, on maintenance therapy F11.20 Cannabis abuse F12.10
[2023-08-05 18:13] VITALS: BP 128/89; PULSE 86; RESP 16; TEMP 36.8; O2SAT 97
[2023-08-05 20:00] VITALS: BP 118/72; PULSE 113; RESP 15; TEMP 36.7; O2SAT 97
[2023-08-06 04:00] VITALS: BP 112/69; PULSE 88; RESP 15; TEMP 36.8; O2SAT 98
--- NOTE | 2023-08-06 09:27 | P.DS_ITS ---
Discharge Providers ACCOUNT CONSULTANT Date of Admission: 08/04/23 11:54 Date of Discharge: 08/06/23 Attending Provider at Admission: Luzmaria Villar DO Attending Provider at Discharge: Luzmaria Villar DO Primary Care Provider: Dr. Carnes Diagnoses at Discharge Discharge Diagnosis (1) (spontaneous vaginal delivery): Details from hospital stay: 38-year-old female delivered on 08/04/2023 via at 39 weeks gestation, after cervical ripening and induction of labor. Patient progressed quickly, progressing from 4 cm to 8 and precipitously to complete. With uncontrolled pushing patient delivered a viable baby boy. Patient's care has been uneventful. Extended rooming in due to withdrawal syndrome. Patient has history of methamphetamine abuse,opiate abuse and cannabis abuse. She is currently on maintenance therapy with Subutex. Patient is tolerating regular diet, ambulating, voiding and caring for . Discharge expectations has been reviewed with patient in great extent and patient verbalizes understanding. This includes no strenuous activities, no street drug usage, patient is to continue her maintenance therapy as prescribed. If excessive bleeding occurs patient is to return to the hospital to the emergency room or call the clinic immediately. If fever or chills occur patient has been instructed to call labor and delivery or the clinic. Options of pain medicine to include ibuprofen or Tylenol has been reviewed and patient understands. Patient is counseled to resume her home meds as well as her vitamins.. 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: Status: Acute (4) Hepatitis C: Status: Acute (5) Late care: Status: Acute (6) AMA (advanced maternal age) multigravida 35+: Status: Acute (7) Supervision of other high-risk : Status: Acute (8) Generalized anxiety disorder: Status: Acute (9) Methamphetamine abuse, episodic: Status: Acute (10) Major depressive disorder, severe: Status: Acute (11) Opioid use disorder, severe, on maintenance therapy: Status: Acute (12) Cannabis abuse: Status: Acute Reason for Visit Reason for Visit: elective induction Information Peripartum Data: Delivery Method: Vaginal Laceration description: Perineal - 1st Degree Episiotomy description: None complications: none Physical Exam Back/Pelvis: OTHER: Abdomen?soft, fundus firm below the umbilicus. Extremity: NARRATIVE EXTREMITY EXAM: Extremities?no edema negative Homans' sign. History History History 3 Term 2 0 Miscarriages/Ectopic 0 Living Children 2 Discharge Data Studies Completed and Pending Laboratory Results WBC 16.18 10^3/uL (3.29-11.43) H 08/05/23 04:23 RBC 3.45 10^6/uL (3.85-5.65) L 08/05/23 04:23 Hgb 10.40 g/dL (11.27-16.99) L 08/05/23 04:23 Hct 31.5 % (36-47) L 08/05/23 04:23 MCV 91.3 fl (85-98) 08/05/23 04:23 MCH 30.1 pg (27-33) 08/05/23 04:23 MCHC 33.0 g/dL (30-55) 08/05/23 04:23 RDW 14.1 % (12.1-15.1) 08/05/23 04:23 Plt Count 283 10^3/cmm (157-399) 08/05/23 04:23 MPV 9.8 fL (7.4-10.4) 08/05/23 04:23 Neut % (Auto) 69.6 % 08/04/23 01:15 Lymph % (Auto) 19.8 % 08/04/23 01:15 Desha % (Auto) 6.2 % 08/04/23 01:15 Eos % (Auto) 2.2 % 08/04/23 01:15 Baso % (Auto) 0.5 % 08/04/23 01:15 Neut # (Auto) 10.91 10^3/uL (1.8-7.7) H 08/04/23 01:15 Lymph # (Auto) 3.1 10^3/uL (0.8-4.8) 08/04/23 01:15 Desha # (Auto) 1.0 10^3/uL (0.2-0.9) H 08/04/23 01:15 Eos # (Auto) 0.4 10^3/uL (0.0-0.8) 08/04/23 01:15 Baso # (Auto) 0.1 10^3/uL (0.0-0.1) 08/04/23 01:15 Nucleated RBC % (auto) 0 % 08/04/23 01:15 Nucleated RBCs # 0.0 /100WBC 08/04/23 01:15 Urine Opiates Screen Negative ng/mL (Negative) 08/04/23 01:24 Ur Barbiturates Screen Negative ng/mL (Negative) 08/04/23 01:24 Ur Phencyclidine Scrn Negative ng/mL (Negative) 08/04/23 01:24 Ur Amphetamines Screen Negative ng/mL (Negative) 08/04/23 01:24 U Benzodiazepines Scrn Negative ng/mL (Negative) 08/04/23 01:24 Urine Cocaine Screen Negative ng/mL (Negative) 08/04/23 01:24 U Marijuana (THC) Screen Positive ng/mL (Negative) H 08/04/23 01:24 Blood Type A Positive 08/04/23 01:15 Rho(D) Type Rh positive 08/04/23 01:15 Antibody Screen Negative 08/04/23 01:15 Procedures Performed viable male Vitals Last Vital Signs Temp 98.2 F 08/06/23 04:00 Pulse 88 08/06/23 04:00 Resp 15 08/06/23 04:00 BP 112/69 08/06/23 04:00 Pulse Ox 98 08/06/23 04:00 O2 Del Method Room Air 08/06/23 04:00 Results Labs OB ([facility]): Obstetrics US 07/24/23 Blood Type A Positive 08/04/23 Antibody Screen Negative 08/04/23 Hct 31.5 % (36-47) L 08/05/23 Hgb 10.40 g/dL (11.27-16.99) L 08/05/23 Rho(D) Type Rh positive 08/04/23 Plt Count 283 10^3/cmm (157-399) 08/05/23 Hep Bs Antigen Non-reactive (Nonreactive) 03/02/23 Hepatitis C Antibody Reactive (Nonreactive) H 03/02/23 Rubella IgG Antibody 131.7 IU/mL (0.0-10.0) H 03/02/23 RPR Nonreactive (Nonreactive) 03/02/23 HIV 1&2 Ab & HIV 1 Ag Non-reactive (Non-Reactiv) 03/02/23 TSH 2.06 uIU/mL (0.27-4.20) 04/02/23 Cystic Fibrosis Screen Negative 03/02/23 Gest Glucose Tolerance 86 mg/dL (70-139) 05/25/23 HCG, Qual Negative (Negative) 11/04/22 Urine Opiates Screen Negative ng/mL (Negative) 08/04/23 Ur Barbiturates Screen Negative ng/mL (Negative) 08/04/23 Ur Phencyclidine Scrn Negative ng/mL (Negative) 08/04/23 Ur Amphetamines Screen Negative ng/mL (Negative) 08/04/23 U Benzodiazepines Scrn Negative ng/mL (Negative) 08/04/23 Urine Cocaine Screen Negative ng/mL (Negative) 08/04/23 U Marijuana (THC) Screen Positive ng/mL (Negative) H Micro Urine Specimen 03/02/23 Pap Smear Interpret See note 03/02/23 Discharge Plan Discharge Patient Disposition: Home Condition: Stable Prescriptions: Continued buprenorphine-naloxone [Suboxone] 8-2 mg film 2 film buccal Q24H Hold Instructions: Doctor's Order Rx Instructions: place 1 film on inside of (each) cheek buprenorphine HCl 8 mg tablet, sublingual 8 mg sublingual TID Qty: 90 0RF Rx Instructions: place pill under tongue three times daily. levothyroxine 50 mcg tablet 50 mcg PO DAILY Qty: 30 6RF metoclopramide HCl [Reglan] 10 mg tablet 10 mg PO Q6H PRN (Reason: nausea and vomiting) Qty: 30 2RF doxycycline hyclate 100 mg tablet 100 mg PO BID Qty: 14 0RF venlafaxine 150 mg capsule,extended release 24hr 75 mg PO DAILY Qty: 30 0RF gabapentin 600 mg tablet 600 mg PO TID Qty: 90 0RF ondansetron HCl 4 mg tablet See Rx Instructions .ROUTE .COMPLEX Qty: 30 1RF Dose Instruction: TAKE 1 TABLET BY MOUTH EVERY 6 HOURS Rx Instructions: TAKE 1 TABLET BY MOUTH EVERY 6 HOURS Discharge Orders: Discharge Order (Routine); Ordered 08/06/23 Ordered By: Luzmaria Villar Discharge Diet: Regular Discharge Activity: Increase activity as tolerated Patient Instructions: Opioid Safety Assessment: 1. S/p at 39 weeks gestation 2. History of drug abuse (multiple)?on maintenance therapy Subutex 3. History of hepatitis C 4. History of epilepsy 5. Advanced maternal age 6. History of general generalized anxiety disorder with major depressive disorder Plan of Treatment: 1. Patient will room in as infant has extended care for withdrawal syndrome.. #2 Patient to follow-up in clinic in 4 weeks for care. 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
[2023-08-06 10:08] VITALS: BP 111/69; PULSE 96; RESP 16; TEMP 36.9; O2SAT 97
[2023-08-06 10:20] VITALS: BP 111/69; PULSE 96; RESP 16; TEMP 36.9; O2SAT 97
== END 2023-08-06 10:21 | disposition home or self-care (01) | DRG 807 ==
LOC: OPOB 11:55 → OBGYN 11:55
PROVIDERS: Admitting Provider Obstetrics & Gynecology; PCP Obstetrics & Gynecology; Visit Provider Obstetrics & Gynecology
DX: O99.324 Drug use complicating childbirth (principal); Z37.0 Single live birth; O70.1 Second degree perineal laceration during delivery; O69.81X0 Labor and delivery complicated by cord around neck, without compression, not applicable or unspecified; Z3A.39 39 weeks gestation of pregnancy; Z86.19 Personal history of other infectious and parasitic diseases; F11.11 Opioid abuse, in remission; F15.21 Other stimulant dependence, in remission; Z86.59 Personal history of other mental and behavioral disorders
CPT/HCPCS: 36415; 59025; 59409; 80306; 85025; 85027; 86850; 86900; 96374; 99211; J3010

== ENCOUNTER → 2024-10-14 14:35 | Outpatient (BNVA) | payer BC, MEDICAID, SELFPAY | PROVIDERS: Visit Provider Nurse Practitioner Women's Health | DX: Z34.90 Encounter for supervision of normal pregnancy, unspecified, unspecified trimester (principal) | CPT/HCPCS: 80307; 81025 ==

== ENCOUNTER → 2024-10-23 13:33 | Outpatient (BNVA) | payer BC, MEDICAID, SELFPAY | PROVIDERS: Visit Provider Nurse Practitioner Women's Health | DX: O26.892 Other specified pregnancy related conditions, second trimester (principal); Z3A.15 15 weeks gestation of pregnancy | CPT/HCPCS: 76815 ==

== ENCOUNTER → 2024-11-05 13:03 | Outpatient (BNVA) | payer BC, MEDICAID, SELFPAY | PROVIDERS: Visit Provider Nurse Practitioner Women's Health | DX: Z34.80 Encounter for supervision of other normal pregnancy, unspecified trimester (principal) | CPT/HCPCS: 80307; 82105; 84315; 85025; 86592; 86762; 86803; 86850; 86900; 87086; 87340; 87522; 87806 ==

== ENCOUNTER → 2024-11-20 14:54 | Outpatient (BNVA) | payer BC, MEDICAID, SELFPAY | PROVIDERS: Visit Provider Nurse Practitioner Women's Health | DX: Z34.92 Encounter for supervision of normal pregnancy, unspecified, second trimester (principal) | CPT/HCPCS: 76805 ==

== ENCOUNTER → 2024-12-01 12:49 | Outpatient (BNVA) | payer BC, MEDICAID, SELFPAY | PROVIDERS: Visit Provider Obstetrics & Gynecology | DX: Z34.92 Encounter for supervision of normal pregnancy, unspecified, second trimester (principal) | CPT/HCPCS: 87491; 87591; 87661 ==

== ENCOUNTER → 2024-12-18 13:24 | Outpatient (BNVA) | payer BC, MEDICAID, SELFPAY | PROVIDERS: Visit Provider Nurse Practitioner Women's Health | DX: O09.892 Supervision of other high risk pregnancies, second trimester (principal); Z3A.24 24 weeks gestation of pregnancy | CPT/HCPCS: 76816; 84315 ==

== ENCOUNTER → 2025-01-16 13:19 | Outpatient (BNVA) | payer BC, MEDICAID, SELFPAY | PROVIDERS: Visit Provider Nurse Practitioner Women's Health | DX: O09.899 Supervision of other high risk pregnancies, unspecified trimester (principal); O09.529 Supervision of elderly multigravida, unspecified trimester | CPT/HCPCS: 80307; 82950; 84315; 84439; 84443; 85025 ==

== ENCOUNTER → 2025-01-22 14:42 | Outpatient (BNVA) | payer BC, MEDICAID, SELFPAY | PROVIDERS: Visit Provider Obstetrics & Gynecology | DX: O26.893 Other specified pregnancy related conditions, third trimester (principal); Z3A.28 28 weeks gestation of pregnancy | CPT/HCPCS: 76816 ==

== ENCOUNTER → 2025-02-19 13:31 | Outpatient (BNVA) | payer BC, MEDICAID, SELFPAY | PROVIDERS: Visit Provider Nurse Practitioner Women's Health | DX: O26.893 Other specified pregnancy related conditions, third trimester (principal); Z3A.31 31 weeks gestation of pregnancy | CPT/HCPCS: 76816; 76820; 84315 ==

== ENCOUNTER → 2025-03-02 13:37 | Outpatient (BNVA) | payer BC, MEDICAID, SELFPAY | PROVIDERS: Visit Provider Obstetrics & Gynecology | DX: O09.899 Supervision of other high risk pregnancies, unspecified trimester (principal); Z3A.00 Weeks of gestation of pregnancy not specified | CPT/HCPCS: 76819; 76820 ==

== ENCOUNTER → 2025-03-11 12:35 | Outpatient (BNVA) | payer BC, MEDICAID, SELFPAY | PROVIDERS: Visit Provider Obstetrics & Gynecology | DX: O26.893 Other specified pregnancy related conditions, third trimester (principal); Z3A.35 35 weeks gestation of pregnancy | CPT/HCPCS: 76816; 76819; 76820 ==

== ENCOUNTER → 2025-03-16 15:10 | Outpatient (BNVA) | payer BC, MEDICAID, SELFPAY | PROVIDERS: Visit Provider Obstetrics & Gynecology | DX: O09.899 Supervision of other high risk pregnancies, unspecified trimester (principal); Z3A.00 Weeks of gestation of pregnancy not specified | CPT/HCPCS: 84315; 87081 ==

== ENCOUNTER → 2025-03-23 14:58 | Outpatient (BNVA) | payer BC, MEDICAID, SELFPAY | PROVIDERS: Visit Provider Obstetrics & Gynecology | DX: O09.899 Supervision of other high risk pregnancies, unspecified trimester (principal) | CPT/HCPCS: 84315 ==

== ENCOUNTER → 2025-03-25 15:10 | Outpatient (BNVA) | payer BC, MEDICAID, SELFPAY | PROVIDERS: Visit Provider Obstetrics & Gynecology | DX: O09.899 Supervision of other high risk pregnancies, unspecified trimester (principal); Z3A.00 Weeks of gestation of pregnancy not specified | CPT/HCPCS: 76819; 76820 ==

== ENCOUNTER → 2025-03-30 15:13 | Outpatient (BNVA) | payer BC, MEDICAID, SELFPAY | PROVIDERS: Visit Provider Obstetrics & Gynecology | DX: O09.899 Supervision of other high risk pregnancies, unspecified trimester (principal); Z3A.00 Weeks of gestation of pregnancy not specified | CPT/HCPCS: 84315 ==

== ENCOUNTER → 2025-04-01 13:43 | Outpatient (BNVA) | payer BC, MEDICAID, SELFPAY | PROVIDERS: Visit Provider Obstetrics & Gynecology | DX: O26.893 Other specified pregnancy related conditions, third trimester (principal); Z3A.38 38 weeks gestation of pregnancy | CPT/HCPCS: 76815; 76819; 76820 ==

== ENCOUNTER 2025-04-05 14:56 | Emergency (ER) | payer BC, MEDICAID, SELFPAY ==
--- OUTSIDE RECORDS SUMMARY | 2014-01-21 09:00 | XMS_ITS | Continuity of Care Document ---
Author Organization [facility] Address [address] [place] [address] Phone Care Team Providers Care Pure Pak Machine Operator Name Role Phone MD EVERARDO, NILA Unavailable Unavailable Advance Directives Directive Yes / No Effective Date File Name No Information Encounters Encounter Description Practice Location Reason(s) For Visit Diagnoses Date Provider Providers Copied on Encounter [facility], [address], [place], [address], [place] tel:[phone] [address] OBS OUTPT No Information MD NILA MCGEE. [address], [place], [place], [id number], [place]. tel:[phone] Referring Provider: MIDWIFERClaire MACIAS [address], [place], [address]. tel:[phone] Family History Family Member Type Diagnosis Age At Onset No Information Payers Payer name Insurance type Covered alliance party ID Authoriza titaryn(s) [facility] INDEMNITY [facility] [id number] Social History Type Description Quantity Date Captured Comments Sex Female Smoking Status No Information Chief Complaint And Reason For Visit No Information History Of Present Illness Encounter Date Complaint History Of Prese nt Illness No Information Instructions Date Instruction Additional Infor mation No Information Assessments Type Assessment Date No Information
--- OUTSIDE RECORDS SUMMARY | 2023-05-15 15:40 | XMS_ITS | Continuity of Care Document ---
Author Organization [facility] Address [address] [place] [address] Phone Care Team Providers Care Well Tester Name Role Phone Hiro LINING STITCHERSandy Unavailable Unavailable Allergies, Adverse Reactions, Alerts Substance Reaction Status Criticality No Known Allergies Active No Inform ation Medications Medication Instructions Dosage Effective Dates (start - stop) Status Comments Gabapentin 600 MG Oral Tablet TAKE 1 TABLET BY MOUTH THREE TIMES DAILY - Active Wrist Brace Medium Wear wrist braces on both wrists at night. - Active May substitute with size that fits patient. Milk of Magnesia 400 mg/5 mL oral suspension take 60 milliliter by oral route every day as needed, followed by a full glass (8 oz) of liquid 60 milliliter - Active Fill with 1 prepackaged bottle aripiprazole 10 mg tablet take 1 tablet by oral route every day 10 MG - Active Miralax 17 gram oral powder packet 1 packet mixed in 8 ounces of water - Active Nicoderm CQ 21 mg/24 hr daily transdermal patch apply 1 patch by transdermal route every day and remove at bedtime 21 MG - Active Suboxone 2 mg-0.[address] 2 film by sublingual route every day allow to dissolve slowly in mouth without chewing or swallowing 2.00 film - Active bupropion HCl XL 300 mg 24 hr tablet, extended release take 1 tablet by oral route every day 300 MG - Active clonazepam 0.5 mg tablet take 1 tablet by oral route 3 times every day 0.5 MG - Active hydroxyzine HCl 50 mg tablet take 1 tablet by oral route 4 times every day 50 MG - Active trazodone 50 mg tablet take 0.5 tablet by oral route every day at bedtime 25 MG - Active venlafaxine ER 75 mg capsule,extended release 24 hr take 1 capsule by oral route 2 times every day with food 75 MG - Active gabapentin 600 mg tablet take 1 tablet by oral route 3 times every day 600 MG - No Longer Active Procedures Procedure Date OFFICE/OUTPATIENT VISIT EST IMMUNIZATION ADMIN FLU VAC NO PRSV 4 DOMI 3 YRS+ IMMUNIZATION ADMIN EACH ADD TDAP VACCINE >7 IM OFFICE/OUTPATIENT VISIT NEW Advance Directives Directive Yes / No Effective Date File Name No Information Encounters Encounter Description Practice Location Reason(s) For Visit Diagnoses Date Provider Providers Copied on Encounter [facility], [address] [place] [address], [id number], tel:[phone] [facility] No Information 3 Hiro Delgado. [address] [place] [address], [id number], [place]. tel:[phone] OFFICE/OUTPA TIENT VISIT [facility], [address] [place] [address], [id number], [place] tel:[phone] [facility] (chief complaint)a nxiety/depr ession (chief complaint)C onstipation (chief complaint) Adult BMI 27.0-27.9Bilateral carpal tunnel syndromeAnxiety with depressionConstipa tion, unspecified constipation type 2 Hiro Delgado. [address] [place] [address], [id number], [place]. tel:[phone] Referring Provider: Sandy Bosch, [address] [place] [address], [id number] . tel:[phone] OFFICE/OUTPA TIENT VISIT [facility], [address] [place] [address], [id number], [place] tel:[phone] [facility] (chief complaint)S eizures (chief complaint)C onstipation (chief complaint)N icotine Dependence (chief complaint)A nxiety (chief complaint) Adult BMI 26.0-26.9SeizuresC onstipation, unspecified constipation typeCigarette nicotine dependence with nicotine-induced disorderAnxiety with depressionScreenin g for diabetes mellitusScreening for thyroid disorderScreening for lipid disorders Hiro Delgado. [address] [place] [address], [id number], . tel:[phone] Referring Provider: Sandy Bosch, [address] [place] [address], [id number] . tel:[phone] Family History Family Member Type Diagnosis Age At Onset No Information Immunizations Vaccine Date Status Comments Flulaval Influenza PFS administered Sour e: New Immunization Record Boostrix Tdap administered Source: New Im munization Record Payers Payer name Insurance type Covered alliance party ID Authoromer armentataryn(s) M [employer] Adults CI [id number] Social History Type Description Quantity Date Captured Comments Sex Female Smoking Status No Information Sexual Orientation Don't Know Gender Identity Female Chief Complaint And Reason For Visit No Information Reason For Referral Reason For Referral No Information Plan Of Treatment Date Type Action Status Goal Unhealthy drug u se screening. Due on due Goal PAP. Due on due Goal Dental Exam. Due on due Goal FOBT. Due on due Goal FIT-DNA. Due on due Goal Influenza vaccine. Due on due Goal Tdap due Goal Colonoscopy. Due on due Goal Hepatitis C scre ening. Due on due Goal Pap/HPV testing. Due on due Goal HPV. Due on due Goal CT-Colonography. Due on due Goal FIT. Due on due Goal Depression scree david. Due on due Goal Lifestyle education regardin g diet completed Goal Depression scree david. Due on due Goal Unhealthy drug u se screening. Due on due Goal Tdap due Goal Dental Exam. Due on due Goal FIT. Due on due Goal PAP. Due on due Goal Colonoscopy. Due on due Goal Hepatitis C scre ening. Due on due Goal FIT-DNA. Due on due Goal FOBT. Due on due Goal Influenza vaccine. Due on due Goal CT-Colonography. Due on due Goal HPV. Due on due Goal Pap/HPV testing. Due on due Goal Lifestyle education regardin g diet completed Goal Tobacco cessation counseling completed Referral Ordered: Neurology (related to Seizures) ordered Referral Ordered: Referrals: Neurology. Evaluate and treat ordered Referral Ordered: EEG AWAKE AND DROWSY ordered Future Order: Lab Order CBC With Differential/Platelet ([id number]), Ordered on: Ordered Future Order: Lab Order Comp. Me tabolic Panel (14) ([id number]), Ordered on: Ordered Future Order: Lab Order Hemoglob in A1c ([id number]), Ordered on: Ordered Future Order: Lab Order Lipid Pa pete With LDL/HDL Ratio ([id number]), Ordered on: Ordered Future Order: Lab Order TSH Rfx on Abnormal to Free T4 ([id number]), Ordered on: Ordered History Of Present Illness Encounter Date Complaint History Of Prese nt Illness Constipation Onset: 4 weeks a go. The client describes it as hard. Denies aggravating symptoms. Denies relieving factors. The client is also experiencing bloating and change in stool pattern. Pertinent negatives include abdominal pain. Additional information: No family history of Colon Cancer, No family history of Crohn's/Colitis, No recent travel out of the country and Pt states she has been walking daily and drinking 64 ounces of water daily. anxiety/depression This is a [facility] visit. The client does not present with thoughts of or suicide. Additional information: Pt will be following with [facility] desires a refill of Abilify today. She has only 1 pill left. wrist pain Onset: 3 years a go. It occurs occasionally and is stable. Location: bilateral wrist. Context: there is no injury. The pain is aggravated by lifting and movement. There are no relieving factors. Associated symptoms include decreased mobility and joint tenderness. Additional information: pt has not tried any methods to relieve pain, pt reports persistent numbness and tingling. Establish Care [facility] to [facility]. Primary concern today is obtaining refillsNeurological problems, history of epilepsy - pt states she cannot remember the name of her neurologistDenies cardiac issues, heart palpitations or chest pain.Denies respiratory issues, no asthma.Denies GI problems, no IBS, Crohns or colitis. Denies any blood in his stools.Denies problems. No history of recurrent UTIs.Denies musculoskeletal problems. No back or joint pain.Denies anxiety or depression.Pt smokes 1/2 pack a day.Family history for lung cancer. Seizures Onset was 9 year s ago. The type of seizure is primary generalized. The context of the seizure includes amphetamine use andheroin. Medication(s) used: Gabapentin with good results. Associated symptoms include altered level of consciousness. Pertinent negatives include fecal incontinence. Additional information: last seizure 05/2021 - witnessed by family member drug induced by heroin and methamphetamine. Anxiety This is an initi al visit. The client presents with anxious/fearful thoughts, depressed mood, difficulty concentrating, difficulty falling asleep, difficulty staying asleep and fatigue but denies thoughts of or suicide. The client's risk factors include drug abuse, family history of depression, family history of anxiety and unemployment. Additional information: Pt a resident at [facility] [place] [facility] and will follow with [facility]. Nicotine Dependence 3 packs landen y, starts within 30 minutes of awakening, desires patches Constipation Onset: 1 month a go. The client describes it as difficulty passing and feeling of fullness. Additional information: pt states she believes the constipation is caused by Suboxone. Functional Status Date Functional Assessmen t No Information Instructions Date Instruction Additional Infor stella Initiate Milk of Mag christenia, discussed use and seIncrease fiber intake and waterIncrease daily exerciseFollow up 4 weeks Related to Constipation, unspecified constipation type Refill Abilify today , discussed use and seFollow up with [facility] as prescribedFollow up 4 weeks Related to Anxiety with depression Bilateral wrist brac es at night.Ibuprofen 600 mg 3 x daily for painFollow up 4 weeks Related to Bilateral carpal tunnel syndrome Giving encouragement to exercise Related to Body mass index [BMI] 27.0-27.9, adult Lifestyle education regarding di et Related to Body mass index [BMI] 27.0-27.9, adult Advised to continue anxiety medication as prescribed, discussed use and seFollow with [facility] as scheduledRTC as needed for acute illness Related to Anxiety with depression Initiate nicotine pa tches, discussed use and seAdvise distraction with severe nicotine cravingsIncreased daily exerciseFollow up 4 weeks Related to Cigarette nicotine dependence with nicotine-induced disorder Initiate Miralax starr ly, discussed use and seAdvised increased fiber and water intakeIncrease daily exerciseFollow up 4 weeks Related to Constipation, unspecified constipation type Referral to neurolog yEEG awake and drowsyAdvised to avoid flashing lights and screens Advised to present to ED following a seizureRTC as needed for acute illness Related to Seizures Giving encouragement to exercise Related to Body mass index [BMI] 26.0-26.9, adult Lifestyle education regarding di et Related to Body mass index [BMI] 26.0-26.9, adult Assessments Type Assessment Date No Information Patient Care Teams Name Effective Dates (start - stop) Status Members No Information
--- OUTSIDE RECORDS SUMMARY | 2024-03-24 04:49 | XMS_ITS | Continuity of Care Document ---
Author Organization [facility] Address [address] [id number] [address] Phone Care Team Providers Care Patient Coordinator Front Desk Name Role Phone Nurse Specialist, Team Unavailable Unavailab le Allergies, Adverse Reactions, Alerts Substance Reaction Status Criticality No Known Allergies Active No Inform ation Medications Medication Instructions Dosage Effective Dates (start - stop) Status Comments phentermine 37.5 mg tablet take 1 tablet by oral route every day before breakfast 37.5 MG - Active Klonopin 1 mg tablet take 1 tablet by or al route every day as needed 1 MG - Active venlafaxine ER 75 mg capsule,extended release 24 hr take 1 capsule by oral route every day with food 75 MG - Active Wellbutrin XL 300 mg 24 hr tablet, extended release take 1 tablet by oral route every day 300 MG - Active ondansetron HCl 4 mg tablet take 1 tablet by oral route once a day as needed for nausea. - Active propranolol 10 mg tablet take 1 tablet by oral route 3 times every day as needed for anxiety - Active gabapentin 300 mg capsule take 1 capsule by oral route 3 times every day 300 MG - Active As per patient privacy policy some of the clinical information may not be visible. Procedures Procedure Date SBIRT - AUDIT/DAST, 15-30 MIN OFFICE/OUTPATIENT VISIT EST SBIRT - AUDIT/DAST, 15-30 MIN 4 OFFICE/OUTPATIENT VISIT EST SBIRT - AUDIT/DAST, 15-30 MIN 4 OFFICE/OUTPATIENT VISIT EST COMPREHEN METABOLIC PANEL ROUTINE VENIPUNCTURE ASSAY THYROID STIM HORMONE ASSAY OF FREE THYROXINE Vitamin D 25-OH VITAMIN B-12 SBIRT - AUDIT/DAST, 15-30 MIN 4 OFFICE/OUTPATIENT VISIT EST Finalize Template Workaround No Charge SBIRT - AUDIT/DAST, 15-30 MIN 4 OFFICE/OUTPATIENT VISIT, EST LIVER ELASTOGRAPHY SBIRT - AUDIT/DAST, 15-30 MIN COMPREHEN METABOLIC PANEL ROUTINE VENIPUNCTURE OFFICE/OUTPATIENT VISIT EST HEP A ANTIBODY IGM OFFICE/OUTPATIENT VISIT EST COMPLETE CBC W/AUTO DIFF WBC COMPREHEN METABOLIC PANEL ROUTINE VENIPUNCTURE HEPATITIS B SURFACE AG EIA HEP A ANTIBODY IGM HEPATITIS A AB, TOTAL HEPATITIS B SURFACE AB IMMUNITY, QN HIV ANTIGEN W/HIV ANTIBODIES CV RNA, QN PCR W/REFL TO GENOTYPE,LIPA(R ) HCV GENOTYPE LIPA(R) SBIRT - AUDIT/DAST, 15-30 MIN 3 OFFICE/OUTPATIENT VISIT, EST URINE TEST SBIRT - AUDIT/DAST, 15-30 MIN 3 SBIRT - AUDIT/DAST, 15-30 MIN 3 OFFICE/OUTPATIENT VISIT, EST Finalize Template Workaround Behavioral Health Consult OFFICE/OUTPATIENT VISIT, EST OFFICE/OUTPATIENT VISIT EST Case Management Behavioral Health Consult OFFICE/OUTPATIENT VISIT, EST OFFICE/OUTPATIENT VISIT, EST URINE TEST Finalize Template Workaround No Charge OFFICE/OUTPATIENT VISIT EST OFFICE/OUTPATIENT VISIT, EST Finalize Template Workaround Patient Left / No Show OFFICE/OUTPATIENT VISIT, EST OFFICE/OUTPATIENT VISIT, EST OFFICE/OUTPATIENT VISIT, EST OFFICE/OUTPATIENT VISIT, EST OFFICE/OUTPATIENT VISIT, EST OFFICE/OUTPATIENT VISIT, EST OFFICE/OUTPATIENT VISIT EST CHYLMD TRACH DNA AMP PROBE N.GONORRHOEAE DNA AMP PROB HSV CULTURE AND TYPING SIALIDASE ENZYME ASSAY OFFICE/OUTPATIENT VISIT, EST OFFICE/OUTPATIENT VISIT, NEW Advance Directives Directive Yes / No Effective Date File Name No Information Encounters Encounter Description Practice Location Reason(s) For Visit Diagnoses Date Provider Providers Copied on Encounter [facility], [id number]- [place], [address], [place] tel:[phone] [facility] No Information 4 Nurse Specialist Team. [address], [place], [address], [place]. tel:[phone] OFFICE/OUTPA TIENT VISIT EST [facility], [id number] 3011447[place], [address], [place] tel:[phone] Family Medicine F1 MAT (chief complaint) Anxiety (chief complaint) Obesity (chief complaint) Obesity (BMI 30.0-34.9)Gene ralized anxiety disorder 4 Ari Montes De Oca. [address], [place], [address], [place]. tel:[phone] Referring Provider: Falguni Chapman R, [address] [place], [address] . tel:[phone] [facility], [address] Vcfl[address]R4 6281428[place]JB[place], [address], [place] tel:[phone] Family Medicine F1 No Information 4 Ari Montes De Oca. [address], [place], [address], [place]. tel:[phone] OFFICE/OUTPA TIENT VISIT [facility], [address] [id number], [place], [address], [place] tel:[phone] Family Medicine F1 MAT (chief complaint) anxiety (chief complaint) Anxiety disorder, unspecified 4 Ari Montes De Oca. [address], [place], [address], [place]. tel:[phone] Referring Provider: Falguni Chapman R, [address] [place], [address] . tel:[phone] OFFICE/OUTPA TIENT VISIT [facility], [address] Fuahr[address] 5842224J[place], [place], [address], [place] tel:[phone] Family Medicine F1 Follow-up (chief complaint) Chronic viral hepatitis CAbnormal thyroid blood testOther tank terminal gauger (current) drug therapyExcessi ve sweatingAnxiet y disorder, unspecifiedBMI 31.0-31.9,adul t 4 Ari Montes De Oca. [address], [place], [address], [place]. tel:[phone] Referring Provider: Falguni Pérez, [address] [place], [address] . tel:[phone] OFFICE/OUTPA TIENT VISIT [facility], [address] Aiqsk[address]L7 5122878RLHay[place], [place], [address], [place] tel:[phone] Family Medicine F1 MAT (chief complaint) Hep C (chief complaint) Chronic viral hepatitis C 4 Ari Montes De Oca. [address], [place], [address], [place]. tel:[phone] Referring Provider: Falguni Pérez, [address] [place], [address] . tel:[phone] [facility], [address] Cwhpq[address] 1861898PWBryan, [place], [address], [place] tel:[phone] Family Medicine F1 Hepatitis C Follow-up (chief complaint) Hepatitis C 4 Monie Milian. [address], [place], [address], [place]. tel:[phone] Referring Provider: Rukhsana Lomax, [address] [place], [address] . tel:[phone] OFFICE/OUTPA TIENT VISIT, [facility], [address]mht[address]X9 4468376CQHay[place], [place], [address], [place] tel:[phone] Family Medicine F1 Hep C Consult (chief complaint) Chronic viral hepatitis CBody mass index (BMI) 30.0-30.9, adult Fe 4 Ari Montes De Oca. [address], [place], [address], [place]. tel:[phone] Referring Provider: Falguni Pérez, [address] [place], [address] . tel:[phone] OFFICE/OUTPA TIENT VISIT [facility], [address] Jqvfs[address]Y0 2284899EZHay[place], [place], [address], [place] tel:[phone] Family Medicine F1 MAT (chief complaint) Anxiety (chief complaint) Hepatitis CAcute hepatitis AGeneralized anxiety disorderBody mass index (BMI) 30.0-30.9, adult 4 Ari Montes De Oca. [address], [place], [address], [place]. tel:[phone] Referring Provider: Falguni Chapman R, [address] [place], [address] . tel:[phone] OFFICE/OUTPA TIENT VISIT [facility], [address]xls[address] 7723889MSHay[place], [place], [address], [place] tel:[phone] Family Medicine F1 MAT (chief complaint) Hep C (chief complaint) Hepatitis CArmpit abscess 3 Ari Montes De Oca. [address], [place], [address], [place]. tel:[phone] Referring Provider: Falguni Chapman R, [address] [place], [address] . tel:[phone] [facility], [address] 7883082SHHay[place], [place], [address], [place] tel:[phone] Behavioral Health Integration Other specified counseling 3 No Information OFFICE/OUTPA TIENT VISIT, [facility], [address]zdh[address] 7981189FLHayti, [place], [address], [place] tel:[phone] Family Medicine F1 MAT (chief complaint) Positive testIrregular menstruation, unspecified 3 Ari Montes De Oca. [address], [place], [address], [place]. tel:[phone] Referring Provider: Falguni Pérez, [address] [place], [address] . tel:[phone] [facility], [address]ep[address] 1870115CX- [place], [address], [place] tel:[phone] Behavior[facility] Integration Other specified counseling 3 No Information OFFICE/OUTPA TIENT VISIT, [facility], [address] Ifher[address]X9 1091837BQ- [place], [address], [place] tel:[phone] Family Medicine F1 MAT (chief complaint) 3 Ari Montes De Oca. [address], [place], [address], [place]. tel:[phone] Referring Provider: Falguni Pérez, [address] [place], [address] . tel:[phone] [facility], [address] Cwdju[address] 4889194AR- [place], [address], [place] tel:[phone] [facility] Integration Other specified counseling 2 No Information [facility], [address] [id number] 0671735YQ- [place], [address], [place] tel:[phone] Behavior[facility] Integration Other specified counseling 2 No Information OFFICE/OUTPA TIENT VISIT, [facility], [address] Myebz[address] 9847719KD- [place], [address], [place] tel:[phone] Family Medicine F1 MAT (chief complaint) 2 Ari Montes De Oca. [address], [place], [address], [place]. tel:[phone] Referring Provider: Falguni Pérez, [address] [place], [address] . tel:[phone] Case Management [facility], [address] Ljain[address] 0452638ZR- [place], [address], [place] tel:[phone] [facility] Integration Other specified counseling 2 Nael Delgado. [address], [place], [address], [place]. tel:[phone] Referring Provider: Sandy Nayak, [address] [place], [address] . tel:[phone] OFFICE/OUTPA TIENT VISIT [facility], [address] Dvjta216G9 6953765NGHayti, [place], [address], [place] tel:[phone] Family Medicine F1 MAT (chief complaint) Anxiety disorder, unspecified 2 Ari Montes De Oca. [address], [place], [address], [place]. tel:[phone] Referring Provider: Falguni Pérez, [address] [place], [address] . tel:[phone] OFFICE/OUTPA TIENT VISIT, [facility], [address] Qsnll[address]E2 0366665TPHayti, [place], [address], [place] tel:[phone] Family Medicine F1 2 Ari Montes De Oca. [address], [place], [address], [place]. tel:[phone] Referring Provider: Falguni Pérez, [address] [place], [address] . tel:[phone] OFFICE/OUTPA TIENT VISIT, [facility], [address] Cudqx276N6 9215967EJHayti, [place], [address], [place] tel:[phone] Family Medicine F1 MT-DAXA (chief complaint) Boil 2 Ari Montes De Oca. [address], [place], [address], [place]. tel:[phone] Referring Provider: Falguni Pérez, [address] [place], [address] . tel:[phone] [facility], [address] [id number] 8036759TN- [place], [address], [place] tel:[phone] Family Medicine EP-MT-DAXA (chief complaint) Irregular periods 2 Ari Montes De Oca. [address], [place], [address], [place]. tel:[phone] Referring Provider: Falguni Pérez, [address] [place], [address] . tel:[phone] [facility], [address] Uczgx664H6 5972776ZLHayti, [place], [address], [place] tel:[phone] Family Medicine No Information 2 Taylor Stephenson. [address] [place], [address], [place]. tel:[phone] OFFICE/OUTPA TIENT VISIT [facility], [address] Hucie508F9 5450596LGHayti, [place], [address], [place] tel:[phone] Family Medicine MT-DAXA (chief complaint) depression (chief complaint) Anxiety disorder, unspecified 2 Ari Montes De Oca. [address], [place], [address], [place]. tel:[phone] Referring Provider: Falguni Pérez, [address] [place], [address] . tel:[phone] OFFICE/OUTPA TIENT VISIT, [facility], [address] Lypni[address]K2 0792884IZHayti, [place], [address], [place] tel:[phone] Family Medicine MT-DAXA (chief complaint) 2 Ari Montes De Oca. [address], [place], [address], [place]. tel:[phone] Referring Provider: Falguni Pérez, [address] [place], [address] . tel:[phone] [facility], [address] [id number] 3247493PC- [place], [address], [place] tel:[phone] Family Medicine F1 MT - DAXA / 2 wks f/u (chief complaint) 1 Ari Montes De Oca. [address], [place], [address], [place]. tel:[phone] Referring Provider: Falguni Pérez, [address] [place], [address] . tel:[phone] OFFICE/OUTPA TIENT VISIT, [facility], [address] Psyqr[address]P8 2844707YHSacramento, [place], [address], [place] tel:[phone] Family Medicine F1 MT-DAXA / 1 wk (chief complaint) 1 Ari Montes De Oca. [address], [place], [address], [place]. tel:[phone] Referring Provider: Falguni Pérez, [address] [place], [address] . tel:[phone] OFFICE/OUTPA TIENT VISIT, [facility], [address] Lyncd539M8 1844029ZUSacramento, [place], [address], [place] tel:[phone] Family Medicine F1 MT - DAXA 1 wk (chief complaint) 1 Ari Montes De Oca. [address], [place], [address], [place]. tel:[phone] Referring Provider: Falguni Pérez, [address] [place], [address] . tel:[phone] OFFICE/OUTPA TIENT VISIT, [facility], [address] Afwxs[address]Y1 4888674UKRawlins [facility], [place], [place], [address], [place] tel:[phone] Family Medicine F1 EP DAXA (chief complaint) 1 No Information OFFICE/OUTPA TIENT VISIT, [facility], [address] Qqjic[address]C9 1120978RTRawlins [facility], [place], [address], [place] tel:[phone] Family Medicine F1 MT - DAXA (chief complaint) 1 Ari Montes De Oca. [address], [place], [address], [place]. tel:[phone] Referring Provider: Falguni Pérez, [address] [place], [address] . tel:[phone] OFFICE/OUTPA TIENT VISIT, [facility], [address] Likwd595F6 2823548WEMorton [facility], [place], [place], [address], [place] tel:[phone] Family Medicine F1 Mt -DAXA / 2 wk f/u (chief complaint) 30 minutes late (chief complaint) 1 Ari Montes De Oca. [address], [place], [address], [place]. tel:[phone] Referring Provider: Falguni Chapman R, [address] [place], [address] . tel:[phone] OFFICE/OUTPA TIENT VISIT, [facility], [address] Myhnb886L0 2983017OAHayti, [place], [address], [place] tel:[phone] Family Medicine F1 MT - DAXA / 1 wk f/u (chief complaint) 1 Ari Montes De Oca. [address], [place], [address], [place]. tel:[phone] Referring Provider: Falguni Pérez, [address] [place], [address] . tel:[phone] OFFICE/OUTPA TIENT VISIT [facility], [address] Pcpwu183I6 6329417PI- [facility], [place], [place], [address], [place] tel:[phone] Family Medicine F1 MT - DAXA / New (chief complaint) Hepatitis C Sep- Ari Montes De Oca. [address], [place], [address], [place]. tel:[phone] Referring Provider: Falguni Pérez, [address] [facility], [place], [address] . tel:[phone] [facility], [address] Bcfqo135Y3 4413937MC- [place], [address], [place] tel:[phone] [facility] Acute vaginitis Sep-0 7 Ramiro Lopez [address], [id number] [place], [place], [address], [place]. tel:[phone] Referring Provider: Magali Sandoval, [address] [id number] 00, [place], [address] . tel:[phone] OFFICE/OUTPA TIENT VISIT, [facility], [address] Rcxnk637P8 6604283EH- [facility], [place], [place], [address], [place] tel:[phone] [facility] vaginal discharge (chief complaint) Vaginitis Sep-0 7 Ramiro Lopez [address], [id number] J, [place], [place], [address], [place]. tel:[phone] Referring Provider: Magali Sandoval, [address] [id number] 00J, [place], [address] . tel:[phone] [facility], [address] Haoyf934L8 2741574ZX- [facility], [place], [place], [address], [place] tel:[phone] Family Medicine F1 Acute vaginitis May-0 7 Ramiro Lopez [address] , [id number] [place], [place], [address], [place]. tel:[phone] Referring Provider: Magali Sandoval, [address] [id number] 00, [place], [address] . tel:[phone] [facility], [address] Qcdou797B2 3625475YL- [place], [address], [place] tel:[phone] [place] [address] Acute vaginitis May-0 7 Ramiro Lopez [address], [id number] , [place], [place], [address], [place]. tel:[phone] Referring Provider: Magali Sandoval, [address] [id number] 00, [place], [address] . tel:[phone] OFFICE/OUTPA TIENT VISIT, [facility], [address] Kcvtu237W7 0363316BC- [place], [address], [place] tel:[phone] [facility] Establish Care (chief complaint) anxiety (chief complaint) chronic L shoulder pain (chief complaint) Anxiety disorder, unspecifiedPai n in left shoulder 7 Ramiro Lopez [address] , [id number] [place], [place], [address], [place]. tel:[phone] Referring Provider: Devika Bone, [address] [place], [address]. tel:[phone] As per patient privacy policy some of the clinical information may not be visible. Family History Family Member Type Diagnosis Age At Onset No Information Immunizations Vaccine Date Status Comments Influenza Quad W/Pres administered Source : Other Registry Influenza, Seasonal administered Source: Other Registry Td,(Adult/Ped) adsorbed administered Sour ce: Other Registry Payers Payer name Insurance type Covered republican ID Alejandrina Villa (s) [id number] Social History Type Description Quantity Date Captured Comments Sex Female Smoking Status No Information Sexual Orientation Heterosexual Gender Identity Female Chief Complaint And Reason For Visit No Information Reason For Referral Reason For Referral No Information Plan Of Treatment Date Type Action Status Goal Dietary manageme nt education, guidance, and counseling completed Goal Dietary manageme nt education, guidance, and counseling completed Goal Tobacco cessation counseling completed Goal Tobacco cessation counseling completed Future Order: Lab Order GAGE ([id number]), Joey romeo on: Sent History Of Present Illness Encounter Date Complaint History Of Prese nt Illness MAT . -Current medic ation and dose:Suboxone 8 mg TID-Withdrawals or cravings?:no-Any other opioid use since last visit?no-Any other drug use at all since last visit?no-UDS results from last visit available? yes, appropriate-Any specific concerns today?.No. Anxiety The client prese nts with anxious/fearful thoughts and depressed mood. The client's relieving factors are medication. Additional information: Pt feels stable on medications. She is using Klonopin sparingly. Obesity Associated sympt oms include anxiety. Additional information: Pt has been using online clinic to get Phentermine. She has lost 7-10 pounds, this is too expensive for her to continue. This causes her anxiety about her weight. She would like a prescription of this. anxiety This is a follow up visit. The client presents with anxious/fearful thoughts. The client's relieving factors are medication. Additional information: Pt states that the Klonopin has helped with anxiety. Less sweating. MAT . -Current medic ation and dose:Suboxone 8 mg TID-Withdrawals or cravings?:no-Any other opioid use since last visit?no-Any other drug use at all since last visit?no-UDS results from last visit available? yes, appropriate-Any specific concerns today?.Pt was given Klonopin at last visit for anxiety Follow-up Hepatitis C: The patient reports recently completing treatment with Epclusa for hepatitis C and is feeling clean. Thyroid: She has a history of underactive thyroid during , for which she took thyroid medication but has since stopped.Night Sweats: The patient is experiencing persistent night sweats and excessive sweating throughout the day, which has become embarrassing for her. She denies any changes in her medications that could be causing the sweating.: The patient has a 5.5-month-old baby and is struggling with anxiety.Anxiety: She has previously taken Klonopin for anxiety and is considering using it again, but she is concerned about becoming dependent on it. She prefers to have a limited supply of Klonopin for occasional use rather than taking it daily. The patient has a history of addiction and is aware of the risks associated with benzodiazepines. She is currently using marijuana to manage her anxiety but reports that it is no longer effective.Weight Loss: The patient reports taking phentermine for weight loss. Hep C Pt is doing well on medications. No concerns today. Is due for her next refill. MAT . -Current medic ation and dose:Suboxone 8 mg TID-Withdrawals or cravings?:no-Any other opioid use since last visit?no-Any other drug use at all since last visit?no-UDS results from last visit available? yes, appropriate-Any specific concerns today?.No. Hepatitis C Follow-up Patient is currently taking Mavyret for HepC treatment.Start date: 11/20/23Missed doses: no missed dosesSide effects: none at this timeCurrent Meds: Gabapentin, Suboxone, Propranolol, Bupropion, and Venlafaxine OTC/Supplements: none Drug Interactions: noneLABS: ALT: 192 AST: 158 HCV Viral Load: [id number] Genotype: 1 F Score: 0 Hep A, B: Immune HIV: NegativeNOTE: Patient has been tolerating medication well with no severe side effects. 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 Was educated about having child tested at 18 months old Prior Investigation/Treatment: None Risk factors for Re-infection: None Complications: None of the below - Abdominal Swelling -Bleeding, Throwing up Blood, Jaundice, Hospital admission for liver inflammation or hepatic encephalopathy PMH: Other liver conditions: None of the below NAFLD Alcoholic Hepatitis Alpha 1 Antitrypsin Hemochromatosis Autoimmune Hepatitis Psychiatric History: Anxiety, Depression Pertinent Family History: None Surgical History: None Social History: Stable housing, transportation. Alcohol: NoneSmoking: Contraception (note estradiol-containing control is contraindicated with Mavyret and Epclusa): Pt declines control. She is not sexually active. She was strongly educated about risk to with treatment FIBROSCAN Kpa 5.0CAP 184IQR 0.9%Metavir Fibrosis Score: P4Zintwxkre: S0 GENOTYPE- 1 I reviewed the patient's CBC, CMP, INR, which do not show evidence of decompensated cirrhosis. HIV negative. I reviewed their Hepatitis antibodies and ruled out acute Hepatitis A or B infection and ruled out chronic hepatitis B infection. Pt had Hep A infection in August. Is not symptomatic at this time. Based on their immunity labs, I recommend they do not immunization for Hepatitis A and/or B I have ruled out Anxiety This is a follow up visit. The client presents with anxious/fearful thoughts, difficulty concentrating, difficulty falling asleep and difficulty staying asleep but denies hallucinations or thoughts of or suicide. The Anxiety is aggravated by conflict or stress and social interactions. Additional information: Pt is not resting at night. Pt has a at home. MAT . -Current medic ation and dose:Suboxone 8 mg TID-Withdrawals or cravings?:no-Any other opioid use since last visit?no-Any other drug use at all since last visit?no-UDS results from last visit available? yes, appropriate-Any specific concerns today?.Last labs indicated pt has Hep A MAT Pt is here to re start Suboxone. -Current medication and dose:Subutex 8 mg TID-Withdrawals or cravings?:no-Any other opioid use since last visit?no-Any other drug use at all since last visit?no-UDS results from last visit available? yes, appropriate-Any specific concerns today?.No.Pt was getting medication from OBGYN during . Pt has been doing well. Pt has been taking medications. Took last pill this am. Pt reports she has been doing very well. Living with parents going to school. Hep C Pt has Hep C jessie t has not been treated. She is ready to start treatment. She also has a boil to right axilla that is red and inflamed and irritated. Has white drainage noted. Painful to touch MAT . -Current medic ation and dose:Suboxone 8 mg TID-Withdrawals or cravings?:no-Any other opioid use since last visit?no-Any other drug use at all since last visit?no-UDS results from last visit available? yes, + for opiates-Any specific concerns today?.Pt reports she is 5 months . Has not sen OBGYN. She is taking . Still taking her depression medications. She states she took this during lat . Denies any use of opiates since finding out she was . MAT . -Current medic ation and dose:Suboxone 8 mg TID -Withdrawals or cravings?:no-Any other opioid use since last visit?no-Any other drug use at all since last visit?no-UDS results from last visit available? yes, + methamphetamines-Any specific concerns today?.No.She has had enough medications. 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 Pt is going to Rehab facility. MAT . -Current medic ation and dose:Suboxone 8 mg tid-Withdrawals or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
[2025-04-05 15:01] VITALS: BP 123/74; PULSE 88; TEMP 36.9; O2SAT 98; BMI 31.4
--- OUTSIDE RECORDS SUMMARY | 2025-04-05 15:01 | XMS_ITS | Clinical Summary ---
Author Organization [facility] Address [address] [place] [address] Care Team Providers Care Terrazzo Tile Setter Name Role Phone Suleiman Dawna L DO Primary Care Provider Allergies No known active allergies Medications clotrimazole (LOTRIMIN) 1 % CreamIndication s:Yeast infection Apply to affected area 2 times daily. 45 Gram 08/19/2018 Active buPROPion HCl (WELLBUTRIN SR) 200 mg Sustained Release 12 hour tablet Take 1 Tablet (200 mg) by mouth 2 times daily. 180 Tablet 6 07/25/2019 Active ALPRAZolam (XANAX) 1 mg tabletIndicatio ns:Anxiety,PTSD (post-traumatic stress disorder) Take 1 Tablet (1 mg) by mouth 3 times daily as needed for Anxiety. 90 Tablet 2 07/31/2019 Active venlafaxine (EFFEXOR XR) 150 mg Extended Release 24 hour capsule TAKE 2 CAPSULES BY MOUTH DAILY 180 Capsule 1 06/20/2020 Active gabapentin (NEURONTIN) 600 mg tablet TAKE 1 TABLET(600 MG) BY MOUTH THREE TIMES DAILY 90 Tablet 6 06/20/2020 Active Active Problems Problem Noted Date Diagnosed Date Recurrent major depressive disorder, in partial remission 04/16/2018 Anxiety 04/16/2018 PTSD (post-traumatic stress disorder) 04/16/2018 Idiopathic peripheral neuropathy 08/03/2015 Cigarette dependence 07/22/2015 Immunizations Immunization Administration Dates Next Due (TDVAX)(7 YRS UP) TETANUS AN D DIPHTHERIA TOXOIDS, ADSORBED (2 LF OF TETANUS TOXOID AND 2 LF OF DIPHTHERIA TOXOID), 0.5ML (PF), IM 1999 INFLUENZA VACCINE QUADRIVALENT 6 MOS UP IM 07/25 Influenza Vaccine Split 3+ Yrs IM 07/19/2018 Family History Medical History Relation Name Comments Healthy Father Healthy Mother Relation Name Status Comments Father Mother Social History Tobacco Use Types Packs/Day Years Used Date Smoking Tobacco: Every Day Smokeless Tobacco: Never Tobacco Cessation:Ready to Q uit: No Alcohol Use Standard Drinks/Week Comments No 0 (1 standard drink = 0.6 oz pur e alcohol) Comments No Sex and Gender Information Value Date Recorded Sex Assigned at Not on file Legal Sex Female 5:36 AM SALES PERFORMANCE ANALYST Gender Identity Not on file Sexual Orientation Not on file Last Filed Vital Signs Vital Sign Reading Time Taken Comments Blood Pressure 130/82 10/24/2019 3:32 PM SALES PERFORMANCE ANALYST Pulse 142 10/24/2019 3:32 PM SALES PERFORMANCE ANALYST Temperature 36.3 C (97.3 F) 10/24/2019 3:32 PM SALES PERFORMANCE ANALYST Respiratory Rate 18 10/24/2019 3:32 PM SALES PERFORMANCE ANALYST Oxygen Saturation 96% 10/24/2019 3:32 PM SALES PERFORMANCE ANALYST Inhaled Oxygen Concentration - - Weight 83 kg (183 lb) 10/24/2019 3:32 PM SALES PERFORMANCE ANALYST Height 157.5 cm (5' 2 ) 10/24/2019 3:32 PM SALES PERFORMANCE ANALYST Body Mass Index 33.47 10/24/2019 3:32 PM SALES PERFORMANCE ANALYST Plan of Treatment Health Maintenance Due Date Last Done Comments Pre-Diabetes and Diabetes Screening 1984 DTAP/TDAP/TD VACCINES (2 - Tdap) 05/03/1999 1999 HEPATITIS B VACCINES (1 of 3 - 19+ 3-dose series) 2003 Preventative Visit-Managed Medicaid 2003 HPV/Cotest (21-29) 2005 CERVICAL CANCER SCREENING 2014 HPV/Cotest (30-65) 2014 PAP SMEAR 2014 BREAST CANCER SCREENING 2024 INFLUENZA VACCINE (#1) 2025 , 07/19/2018 HPV VACCINES Aged Out No longer eligi ble based on patient's age to complete this topic [place] [id number] [facility] MEDICAID Care Teams Terrazzo Tile Setter Relationship Specialty Start Date End Date Dawna Bearden DO [address] [place] [id number] PCP - General Family Practice 04/16/18
--- OUTSIDE RECORDS SUMMARY | 2025-04-05 15:01 | XMS_ITS | Clinical Summary ---
Author Organization [facility] Address [address] Attn: Epic Prelude ADT SUZY [place] [id number] Care Team Providers Care Antenna Design Engineer Name Role Phone Dawna Bearden Bouchra ARTHUR Primary Care Provider [phone] Allergies No known active allergies Medications buprenorphine HCl/naloxone HCl (SUBOXONE SUBLINGUAL) Place under tongue. Active brexpiprazole (REXULTI) 1 mg TabletIndication s:Episode of recurrent major depressive disorder, unspecified depression episode severity Take 1 Tablet (1 mg) by mouth daily. 30 Tablet 4 2 Active Additional Information Patient not taking.Reported on 07/04/2023 topiramate (TOPAMAX) 50 mg tabletIndication s:Seizures (CMS/HCC) TAKE 1 TABLET BY MOUTH TWICE DAILY 60 Tablet 3 Active Additional Information Patient not taking.Reported on 07/06/2023 buprenorphine HCL (SUBUTEX) 8 mg Tablet, Sublingual PLACE 1 TABLET UNDER TONGUE THREE TIMES DAILY 3 Active mupirocin (BACTROBAN) 2 % OintmentIndicati ons:Abscess of left hip APPLY TO AFFECTED AREA 2 TIMES DAILY. 22 Gram 1 4 Active buPROPion HCL (WELLBUTRIN SR) 200 mg Sustained Release 12 hour tabletIndication s:PTSD (post-traumatic stress disorder),Anxiet y with depression take 1 tablet by mouth twice a day 60 Tablet 3 4 Active venlafaxine (EFFEXOR XR) 75 mg Extended Release 24 hour capsuleIndicatio ns:PTSD (post-traumatic stress disorder),Anxiet y with depression TAKE 3 CAPSULES BY MOUTH EVERY DAY 90 Capsule 11 4 Active gabapentin (NEURONTIN) 600 mg tabletIndication s:Seizures (CMS/HCC) take 1 tablet by mouth three times a day 90 Tablet 4 Active Active Problems Problem Noted Date Diagnosed Date Anxiety with depression 03/31/2022 Recurrent major depressive disorder, in partial remission [...] Types Packs/Day Years Used Date Smoking Tobacco: Former Cigarettes Smokeless Tobacco: Never Tobacco Cessation:Counseling Given: Not Answered Alcohol Use Standard Drinks/Week Comments No 0 (1 standard drink = 0.6 oz pur e alcohol) Comments Unknown Sex and Gender Information Value Date Recorded Sex Assigned at Not on file Legal Sex Female 3:31 AM 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 OF 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 Gender Identity Not on file Sexual Orientation Not on file Last Filed Vital Signs Vital Sign Reading Time Taken Comments Blood Pressure 118/68 07/06/2023 3:24 PM CDT Pulse 115 07/06/2023 3:24 PM CDT Temperature 35.9 C (96.6 F) 07/06/2023 3:24 PM CDT Respiratory Rate 18 07/04/2023 3:54 PM CDT Oxygen Saturation 96% 07/06/2023 3:24 PM CDT Inhaled Oxygen Concentration - - Weight 98 kg (216 lb) 07/06/2023 3:24 PM CDT Height 172.7 cm (5' 8 ) 07/06/2023 3:24 PM CDT Body Mass Index 32.84 07/06/2023 3:24 PM CDT Plan of Treatment Health Maintenance Due Date Last Done Comments Pre-Diabetes and Diabetes Screening 1984 DTAP/TDAP/TD VACCINES (2 - Tdap) 05/03/1999 1999 HEPATITIS B VACCINES (1 of 3 - 19+ 3-dose series) 2003 Preventative Visit-Managed Medicaid 2003 HPV/Cotest (21-29) 2005 CERVICAL CANCER SCREENING 2014 HPV/Cotest (30-65) 2014 PAP SMEAR 2014 BREAST CANCER SCREENING 2024 INFLUENZA VACCINE (#1) 2025 9, 07/19/2018 HPV VACCINES Aged Out No longer eligi ble based on patient's age to complete this topic Insurance [facility] MEDICAID Care Teams Antenna Design Engineer Relationship Specialty Start Date End Date Dawna Bearden DO [address] [place] [address] PCP - General Family Practice 04/16/18
--- OUTSIDE RECORDS SUMMARY | 2025-04-05 15:01 | XMS_ITS | Encounter Summary ---
Author Organization [facility] Address [address] [place] [address] Care Team Providers Care Melter Supervisor Open Hearth Furnace Name Role Phone Dawna Bearden DO Primary Care Provider Encounter Details Date Type Department Care Team (Latest Contact Info) Description 04/21/2002 Outpatient [facility] Oral and Maxillo Surgery[address] [place] [address] Chano Hernandez, PhD NO ADDRESS ON FILE TOOTH POSITION ANOMALY (Primary Dx) Social History Tobacco Use Types Packs/Day Years Used Date Smoking Tobacco: Never Assessed Comments Unknown Sex and Gender Information Value Date Recorded Sex Assigned at Not on file 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
--- OUTSIDE RECORDS SUMMARY | 2025-04-05 15:01 | XMS_ITS | Encounter Summary ---
Author Organization [facility] Address [address] [place] [address] Care Team Providers Care Marine Meteorologist Name Role Phone Dawna Bearden DO Primary Care Provider Encounter Details Date Type Department Care Team (Latest Contact Info) Description 04/25/2002 Outpatient [facility] Oral and Maxillo Surgery[address] [place] [address] Chano Hernandez, PhD NO ADDRESS ON FILE SURGERY FOLLOWUP, UNSPEC (Primary Dx) Social History Tobacco Use Types Packs/Day Years Used Date Smoking Tobacco: Never Assessed Comments Unknown Sex and Gender Information Value Date Recorded Sex Assigned at Not on file 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
--- OUTSIDE RECORDS SUMMARY | 2025-04-05 15:01 | XMS_ITS | Encounter Summary ---
Author Organization [facility] Address [address] [place] [address] Care Team Providers Care Digital Marketing Executive Name Role Phone Dawna Bearden DO Primary Care Provider Encounter Details Date Type Department Care Team (Latest Contact Info) Description 04/03/2002 Outpatient [facility] Oral and Maxillo Surgery[address] [place] [address] Chano Hernandez, PhD NO ADDRESS ON FILE TOOTH POSITION ANOMALY (Primary Dx) Social History Tobacco Use Types Packs/Day Years Used Date Smoking Tobacco: Never Assessed Comments Unknown Sex and Gender Information Value Date Recorded Sex Assigned at Not on file 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
--- NOTE | 2025-04-05 15:13 | XRR_ITS ---
PROCEDURE INFORMATION: Exam: XR Left Hand Exam date and time: 04/05/2025 3:28 PM Age: 39 years old Clinical indication: Injury or trauma; Other: Traumatic injury from car door; Crushing; Left; Index finger TECHNIQUE: Imaging protocol: Radiologic exam of the left hand. Views: 3 or more views. COMPARISON: No relevant prior studies available. FINDINGS: Bones/joints: The lateral view demonstrates a small linear lucency in the distal aspect of the 2nd middle phalanx. The lucency is not present on other views. No other evidence for fracture or dislocation. Joint spaces are within normal limits. Soft tissues: The 2nd fingernail is partially avulsed. XR/XR hand LT min 3V* [id number] IMPRESSION: Small linear lucency involving the 2nd middle phalanx concerning for nondisplaced fracture. Radiographic follow-up is recommended.
--- NOTE | 2025-04-05 16:30 | W.ED.EXTPRO ---
HPI - Extremity Problem General: Chief complaint: Extremity Injury, Upper Stated complaint: left index nail off Time Seen by Provider: 04/05/25 15:11 History of Present Illness: Patient is a 39-year-old 39-week gestation that shut her left index finger in the car. She has an artificial nail, and the nail pulled back to the quick at a 30 degrees. She complains of pain only in this left index finger. Associated symptoms: Deny chest pain or rash Related Data Home Medications ?Medication ?Instructions ?Recorded ?Confirmed [id number] 400 mcg-om3 35 mg-dha 25 tab PO DAILY 10/14/24 04/01/25 mg-epa 5 mg-fish oil chewable tablet bupropion HCl 150 mg 24 hr tablet, 150 mg PO QAM 10/14/24 04/01/25 extended release (Wellbutrin XL) venlafaxine 150 mg 150 mg PO DAILY 12/18/24 04/01/25 capsule,extended release 24 hr buprenorphine HCl 8 mg sublingual 4 mg sublingual ONCE 01/16/25 04/01/25 tablet Previous Rx's ?Medication ?Instructions ?Recorded gabapentin 600 mg tablet 600 mg PO TID #90 tabs 07/23/23 ondansetron 8 mg disintegrating 8 mg PO Q12H PRN nausea and 02/12/25 tablet vomiting #30 tabs hydroxyzine HCl 25 mg tablet See Rx Instructions .Route 03/11/25 .COMPLEX #60 tabs polyethylene glycol 3350 17 17 g PO DAILY #238 grams 03/11/25 gram/dose oral powder (Miralax) cephalexin 500 mg capsule 500 mg PO BID 3 days #6 caps 04/05/25 Allergies Allergy/AdvReac Type Severity Reaction Status Date / Time No Known Allergies Allergy Verified 04/05/25 15:08 Review of Systems Eyes: Denies: change in vision or blurry vision ENMT: Denies: throat pain Card: Denies: chest pain or palpitations Resp: Denies: dyspnea or productive cough GI: Denies: abdominal pain, nausea or vomiting : Denies: flank pain or difficulty voiding Musc: Reports: extremity pain and joint pain; Denies: back pain Skin/Breast: Reports: other (evulsion of nail); Denies: rash or pruritus Neuro: Denies: headache(s) or numbness in extremities Psych: Denies: anxiety or depression PFSH ED PFSH: Medical History (Updated 04/05/25 @ 16:59 by ADE Mcdonald) History of epilepsy Hepatitis C Reports curative treatment in July [address] Chapman at [facility] No pertinent past medical history neghx: htn,dm,thyroid,dvt/pe PCP: Anxiety Depression Surgical History H/O breast augmentation [place] teeth extracted Family History Denies family history of Colon cancer Ovarian cancer Prostate cancer Diabetes Heart disease Hyperlipidemia Breast cancer Hypertension Uterine cancer Thyroid disease Stroke Social History Smoking and tobacco/nicotine status: current every day tobacco/nicotine user (marijuana use) Physical Exam Const: COMMON NORMALS: no acute distress, average body habitus and patient oriented x3 HENMT: COMMON NORMALS: normocephalic and atraumatic HEAD & SCALP: normocephalic and atraumatic Lymph: LYMPHATIC: no lymphadenopathy noted Resp: COMMON NORMALS: normal respiratory effort and No retractions Cardio: COMMON NORMALS: regular rate and regular rhythm RATE: regular rate RHYTHM: regular rhythm GI: COMMON NORMALS: Normal to inspection, nondistended, normoactive bowel sounds present, Soft to palpation and non-tender PALPATION: Yes Soft to palpation : COMMON NORMALS: Yes no CVA tenderness and Yes normal external appearance BLADDER/KIDNEY EXAM: Yes no CVA tenderness Back/Pelvis: COMMON NORMALS: no CVA tenderness Extremity: COMMON NORMALS: normal to inspection, full ROM and capillary refill normal LEFT UPPER EXTREMITY: Yes hand & digits Left hand and digits: Yes palpation (index finger nail avulsion) Neuro: COMMON NORMALS: patient oriented x3 Psych: COMMON NORMALS: mental status grossly normal and Normal thought process present THOUGHT PROCESS: Normal thought process present Procedures Laceration Laceration 1: Site: upper extremity (left index finger) Side (If applicable): left Size (cm): 3 Description: flap and other (left index finger nail) Depth: simple, single layer Local Anesthetic: lidocaine 1% Amount of anesthesia used (mL): 4 Pre-repair: wound explored, irrigated extensively and deep structures intact Skin layer closed with: nylon Size (cm): 4-0 Number of sutures: 1 Technique: simple, interrupted Subcutaneous layer closed with: other (dermabond under nail) Course Vital Signs: Vital signs: Vital Signs Temperature 98.4 F 04/05/25 15:01 Pulse Rate 88 04/05/25 15:01 Blood Pressure 123/74 04/05/25 15:01 Pulse Oximetry 98 04/05/25 15:01 Oxygen Delivery Me thod Room Air 04/05/25 15:01 MDM - Extremity (Nontraumatic) Medical Decision Making Patient is a 39-year-old female that slammed her left hand in the door on accident just prior to arrival. She had artificial nails in place, which completely evolves the fingernail of her index finger. She had pain. This was able to be dermabonded in place, and sutured. I discussed the failure of this with the patient. Initial x-ray on my view I did not see a fracture. We will have patient follow-up in 1 week with repeat hand x-ray. Her wound was wrapped in Vaseline gauze, nonadherent dressing and taped. Patient will remove her stitches in 1 week. Lab Data Radiology Impressions Hand X-Ray 04/05/25 15:13 IMPRESSION: Small linear lucency involving the 2nd middle phalanx concerning for nondisplaced fracture. Radiographic follow-up is recommended. XR interpretation done by ED provider, pending radiology final review ED provider radiology interpretation(s): no acute Discharge Plan Discharge Patient Disposition: Home Clinical Impression: Contusion of left index finger with damage to nail, initial encounter Condition: Stable Prescriptions: New cephalexin 500 mg capsule 500 mg PO BID 3 Days Qty: 6 0RF No Action venlafaxine 150 mg capsule,extended release 24hr 150 mg PO DAILY buprenorphine HCl 8 mg tablet, sublingual 4 mg sublingual ONCE Rx Instructions: place pill under tongue three times daily. ondansetron 8 mg tablet,disintegrating 8 mg PO Q12H PRN (Reason: nausea and vomiting) Qty: 30 2RF Rx Instructions: use sparingly bupropion HCl [Wellbutrin XL] 150 mg tablet extended release 24 hr 150 mg PO QAM [id number]-[id number] oil 400 mcg-35 mg -25 mg-5 mg tablet,chewable PO DAILY polyethylene glycol 3350 [Miralax] 17 gram/dose powder 17 g PO DAILY Qty: 238 1RF gabapentin 600 mg tablet 600 mg PO TID Qty: 90 0RF hydroxyzine HCl 25 mg tablet See Rx Instructions .ROUTE .COMPLEX Qty: 60 0RF Dose Instruction: TAKE 1 TABLET BY MOUTH TWICE A DAY NEEDED FOR ANXIETY Rx Instructions: TAKE 1 TABLET BY MOUTH TWICE A DAY NEEDED FOR ANXIETY Discharge Orders: Discharge ED (Routine); Ordered 04/05/25 Ordered By: Lisbeth Kessler Discharge Diet: Usual diet Discharge Activity: Resume usual activity Patient Instructions: Laceration (ED), Nail Avulsion (ED), Patient Portal & Emiliana Instructions Activity Restrictions/Additional Instructions: Remove stitch in 7-10 days Keep area clean. Wash daily. Add Vaseline Use antibiotics as noted with probiotic or active culture yogurt. As noted, there is a risk of losing the nail despite Dermabond to the nail, and the stitch. Repeat x-ray of left hand in 1 week Your x-ray is not finalized, however on my view no fracture was seen Return to ED for further issues, redness, fever. Print Language: Setswana Coding Level of Care Code ED Product Advisor for Jonh Olsen
== END 2025-04-05 17:11 | disposition home or self-care (01) ==
PROVIDERS: Emergency Provider Physician Assistant
DX: S60.122A Contusion of left index finger with damage to nail, initial encounter (principal); X58.XXXA Exposure to other specified factors, initial encounter
CPT/HCPCS: 73130; 99283; J9999

== ENCOUNTER → 2025-04-06 16:17 | Outpatient (BNVA) | payer BC, MEDICAID, SELFPAY | PROVIDERS: Visit Provider Obstetrics & Gynecology | DX: O09.899 Supervision of other high risk pregnancies, unspecified trimester (principal) | CPT/HCPCS: 84315 ==

== ENCOUNTER 2025-04-08 16:51 | Inpatient (IN) | payer BC, MEDICAID, SELFPAY ==
[2025-04-08] VITALS (43 sets, daily range): BP systolic 109–178; BP diastolic 55–93; PULSE 69–120; RESP 15; TEMP 35.9; O2SAT 98–99; BMI 31.9
[2025-04-08 16:18] LABS: Nitrazine Paper, PH Negative
[2025-04-08 16:59] LABS: Hematocrit 31.6 % (36-47); Hemoglobin 10.20 g/dL (11.27-16.99); Mean Corpuscular HGB Conc 32.3 g/dL (30-55); Mean Corpuscular Hemoglobin 25.2 pg (27-33); Mean Corpuscular Volume 78.2 fl (85-98); Nucleated Red Blood Cells % 0.2 %; Platelet Count 268 10^3/cmm (157-399); Red Blood Count 4.04 10^6/uL (3.85-5.65); White Blood Count 11.05 10^3/uL (3.29-11.43)
--- NOTE | 2025-04-08 17:10 | PM.OBGYHP ---
Providers/Chief Complaint Admitting Physician: Jimmy Edge MD Primary AUTO PARTS PROFESSIONAL: Jimmy Edge MD Chief Complaint: Low MAYRA in office HPI AUTO PARTS PROFESSIONAL History of Present Illness Kristal Santa is a 39 year old female EDC April 10, 2025 At 39 w 6 d No complications h/o drug use on suboxone had BPP done today, which showed decreased MAYRA now admitted for induction of labor No c/o No UCs, bleeding, fluid leakage + active movements Present Details : 4 Para: 3 Labs Rubella: Immune RPR: Negative GBS: Negative Medications/Allergies Home Medications ?Medication ?Instructions ?Recorded ?Confirmed ?Last Taken ?Type gabapentin 600 mg tablet 600 mg PO TID #90 tabs 07/23/23 04/08/25 Unknown Rx [id number] 400 mcg-om3 35 mg-dha 25 1 tab PO DAILY 10/14/24 04/08/25 Unknown History mg-epa 5 mg-fish oil chewable tablet bupropion HCl 150 mg 24 hr tablet, 150 mg PO QAM 10/14/24 04/08/25 Unknown History extended release (Wellbutrin XL) venlafaxine 150 mg 150 mg PO DAILY 12/18/24 04/08/25 Unknown History capsule,extended release 24 hr buprenorphine HCl 8 mg sublingual 4 mg sublingual DAILY 01/16/25 04/08/25 Unknown History tablet polyethylene glycol 3350 17 17 g PO DAILY #238 grams 03/11/25 04/08/25 Unknown Rx gram/dose oral powder (Miralax) ondansetron 8 mg disintegrating 8 mg PO Q12H PRN nausea and 04/06/25 04/08/25 Unknown Rx tablet vomiting #30 tabs hydroxyzine HCl 25 mg tablet See Rx Instructions .Route 04/07/25 04/08/25 Unknown Rx .COMPLEX #60 tabs Allergies Allergy/AdvReac Type Severity Reaction Status Date / Time No Known Allergies Allergy Verified 04/08/25 10:03 [facility] AUTO PARTS PROFESSIONAL PFSH: Medical History (Updated 04/09/25 @ 01:58 by Jimmy Edge MD) History of epilepsy Hepatitis C Reports curative treatment in July [address] Chapman at [place] [facility] No pertinent past medical history neghx: htn,dm,thyroid,dvt/pe PCP: Anxiety Depression Surgical History H/O breast augmentation [place] teeth extracted Family History Denies family history of Colon cancer Ovarian cancer Prostate cancer Diabetes Heart disease Hyperlipidemia Breast cancer Hypertension Uterine cancer Thyroid disease Stroke Social History Smoking and tobacco/nicotine status: current every day tobacco/nicotine user (marijuana use) History History History 4 Term 3 0 Miscarriages/Ectopic 0 Living Children 3 Care KIARRA Calculator Estimated Delivery Date Method Current WG Current Estimate 04/10/25 Ultrasound #1 40w 0d Other Estimates 05/02/25 LMP (Uncertain) 36w 6d Specific Issues/Plans Anxiety/depression Methamphetamine abuse in remission Opioid use disorder on maintenance therapy Cannabis use Unknown LMP Vitals/I&O/Wt Last Vital Signs Temp 98.1 F 04/10/25 06:00 Pulse 67 04/10/25 06:00 Resp 16 04/10/25 06:00 BP 119/65 04/10/25 06:00 Pulse Ox 98 04/10/25 06:00 O2 Del Method Room Air 04/10/25 06:00 Weight last 48 hrs Weight 210 lb Physical Exam Narrative: Weight 210 lbs, 5?8? VS normal General comfortable, awake, alert Lungs: clear Cor: RRR FH 38 cm, cephalic Cervix: 1 cm / 75% / -3 / posterior Ext: no edema External monitor: heart tracing good variability, + accelerations Urinary Catheter Management: Patel: Cath Placed During This Visit: yes, but has since been removed by the nurse Reason for Continuing Indwelling Catheter: Decision to DC Catheter Urinary Catheter Date of Insertion: 04/08/25 Urinary Catheter Time of Insertion: 21:15 Date Urinary Catheter Removed: 04/09/25 Time Urinary Catheter Discontinued: 00:40 Data 04/09/25 14:17 Results Labs OB ([facility]): Obstetrics US 04/08/25 Obstetrics US/Biophysical Profile 04/01/25 Blood Type A Positive 04/08/25 Antibody Screen Negative 04/08/25 Hct, (36-47) 30.1 % L 04/09/25 Hgb, (11.27-16.99) 9.50 g/dL L 04/09/25 Rho(D) Type Rh positive 04/08/25 Plt Count, (157-399) 260 10^3/cmm 04/09/25 Hep Bs Antigen, (Nonreactive) Non-reactive 11/05/24 Hepatitis C Antibody, (Nonreactive) Reactive H 11/05/24 Rubella IgG Antibody, (0.0-10.0) 152.6 IU/mL H 11/05/24 RPR, (Nonreactive) Nonreactive 11/05/24 HIV 1&2 Ab & HIV 1 Ag, (Non-Reactiv) Non-reactive 11/05/24 TSH, (0.27-4.20) 2.53 uIU/mL 01/16/25 Free T4, (0.82-1.77) 0.80 ng/dL L 01/16/25 Glucose 1 Hr 50 gm, (85-140) 97 mg/dL 01/16/25 HCG, Qual, (Negative) Positive H 10/14/24 Urine Opiates Screen, (Negative) Negative ng/mL 04/08/25 Ur Barbiturates Screen, (Negative) Negative ng/mL 04/08/25 Ur Phencyclidine Scrn, (Negative) Negative ng/mL 04/08/25 Ur Amphetamines Screen, (Negative) Negative ng/mL 04/08/25 U Benzodiazepines Scrn, (Negative) Negative ng/mL 04/08/25 Urine Cocaine Screen, (Negative) Negative ng/mL 04/08/25 U Marijuana (THC) Screen, (Negative) Positive ng/mL H 04/08/25 Micro Urine Specimen 11/05/24 A&P Assessment and plan 1. Supervision of other high risk , antepartum: 39 w 6 d Relative oligohydramnios h/o drug abuse on suboxone plan admit for induction of labor PDMP PDMP Reviewed: Not Reviewed Attestations Medical Necessity Statement*: patient at 39 w 6 d with decreased amniotic fluid, admitted for induction of labor Coding Level of Care Code Acute Code for Chg Fwd Diagnoses Supervision of other high risk , antepartum O09.899
[2025-04-08 17:17] LABS: PCP Screen Urine Negative (Negative)
[2025-04-08] MEDS: oxytocin 30 UNIT/500 ML BAG IV (17:24)
--- NOTE | 2025-04-08 20:00 | ANES.PREANE2 ---
Pre-Anesthetic Assessment Height/Weight: Height 1.73 m Weight 95.254 kg Temp Pulse Resp BP O2 Del Method 96.6 F L 80 15 118/67 Room Air 04/08/25 17:27 04/08/25 19:26 04/08/25 17:27 04/08/25 19:26 04/08/25 17:33 Epidural Familial anesthetic complications: None Was Beta Osmel taken within 24 hours: N/A Was Clonidine taken within 24 hours: N/A Last intake: 1700 Social No alcohol and No tobacco (Marijuan) Exam alert, oriented x 3, clear to auscultation bilaterally and regular rate & rhythm Airway Submandibular: within normal limits Cervical ROM: within normal limits Mallampati: Class II Dentition: full History/ROS No significant history except as noted and No significant complaints Pulmonary None reported CV/HEM None reported None reported Hepatic Hx hep c GI Gastroesophageal Reflux Disease () Metabolic None reported Musc/skel None reported Neuropsych Anxiety, Depression, Headache and Seizure (Epilepsy) Anesthetic Plan ASA status: 3 Anesthesia: Anesthesia Evaluation, General and Regional (specify below) (Epidural) Risk of > 500 ml blood loss (7ml/kg in children): Yes, adequate IV access and fluids planned Medications/Allergies Home Medications ?Medication ?Instructions ?Recorded ?Confirmed ?Last Taken ?Type gabapentin 600 mg tablet 600 mg PO TID #90 tabs 07/23/23 04/08/25 Unknown Rx [id number] 400 mcg-om3 35 mg-dha 25 1 tab PO DAILY 10/14/24 04/08/25 Unknown History mg-epa 5 mg-fish oil chewable tablet bupropion HCl 150 mg 24 hr tablet, 150 mg PO QAM 10/14/24 04/08/25 Unknown History extended release (Wellbutrin XL) venlafaxine 150 mg 150 mg PO DAILY 12/18/24 04/08/25 Unknown History capsule,extended release 24 hr buprenorphine HCl 8 mg sublingual 4 mg sublingual DAILY 01/16/25 04/08/25 Unknown History tablet polyethylene glycol 3350 17 17 g PO DAILY #238 grams 03/11/25 04/08/25 Unknown Rx gram/dose oral powder (Miralax) ondansetron 8 mg disintegrating 8 mg PO Q12H PRN nausea and 04/06/25 04/08/25 Unknown Rx tablet vomiting #30 tabs hydroxyzine HCl 25 mg tablet See Rx Instructions .Route 04/07/25 04/08/25 Unknown Rx .COMPLEX #60 tabs Allergies Allergy/AdvReac Type Severity Reaction Status Date / Time No Known Allergies Allergy Verified 04/08/25 10:03 Current Medications Generic Name Dose Route Start Last Admin Trade Name Jeetq PRN Reason Stop Dose Admin Dextrose/Lactated Ringer's 1,000 mls @ 125 mls/hr 04/08/25 17:00 04/08/25 17:24 Dextrose 5%-Lactated Ringers IV 125 mls/hr .Q8H RUSTY Administration Oxytocin 30 unit in 500 mls @ 1 mls/hr 04/08/25 17:00 04/08/25 19:15 Pitocin IV 8 milliunit/min .Q24H RUSTY 8 mls/hr Protocol Titration 1 MILLIUNIT/MIN PFSH Anesthesia Medical History History of epilepsy Hepatitis C Reports curative treatment in July [address] Chapman at [facility] No pertinent past medical history neghx: htn,dm,thyroid,dvt/pe PCP: Anxiety Depression Surgical History H/O breast augmentation [place] teeth extracted Family History Denies family history of Colon cancer Ovarian cancer Prostate cancer Diabetes Heart disease Hyperlipidemia Breast cancer Hypertension Uterine cancer Thyroid disease Stroke Social History Smoking and tobacco/nicotine status: current every day tobacco/nicotine user (marijuana use) Female Reproductive History : 4 Data Anesthesia 04/08/25 16:40 Short CBC 04/08/25 Range/Units 16:40 WBC 11.05 (3.29-11.43) 10^3/uL Hgb 10.20 L (11.27-16.99) g/dL Hct 31.6 L (36-47) % MCV 78.2 L (85-98) fl Plt Count 268 (157-399) 10^3/cmm Neut % (Auto) 70.8 % Neut # (Auto) 7.81 H (1.8-7.7) 10^3/uL Blood Bank 04/08/25 16:40 Blood Type A Positive Rho(D) Type Rh positive Antibody Screen Negative
[2025-04-08] MEDS: ROPivacaine premix 200 MG/100 ML PREMIX 10 MG EPIDURAL (20:16)
--- NOTE | 2025-04-08 20:30 | P.ANES_ITS ---
Anesthesia Procedures Procedure/Date: 04/08/25 Epidural: Time Out Performed: Yes Consents Signed: Procedure Consent and NPO Consent Consent: requested by attending/covering physician, from patient, risks and benefits reviewed and patient agrees to proceed Lumbar Level: L3-L4 Epidural position: sitting Epidural procedure: sterile prep of area (betadine), 1% lidocaine to numb the area (3 mLs), neg for paresthesia, test dose given, 1.5% xylocaine 1:200k epi (3 mLs/ 2 mLs), placed PCEA, no systemic response, sterile dressing applied, L.U.D. no apparent complications and 0.2% Ropiavacaine @ mls/hr (13) Additional Comments: ZULEIKA 5.5cm, catheter threaded to 11cm. Negative aspiration for blood and CSF. Remaining lidocaine and saline from epidural kit given via epidural. Patient tolerated well. TOOLS PROGRAMMER button within reach and patient educated on use.
[2025-04-08] MEDS: ondansetron 2 mg/ML SDV 2 mL 4 MG IVP (21:07)
[2025-04-08] MEDS: metoclopramide 5 mg/mL SDV 2 mL 10 MG IV (21:53)
[2025-04-09] VITALS (29 sets, daily range): BP systolic 116–140; BP diastolic 55–76; PULSE 62–103; RESP 16; TEMP 36.5–36.6; O2SAT 97–98
--- NOTE | 2025-04-09 01:20 | PM.DELIVERY ---
Delivery Note: Date of delivery: April 09, 2025 Pre-delivery diagnoses: 39 w 5 d relative oligohydramnios induction of labor Post-delivery diagnoses: 39 w 5 d relative oligohydramnios induction of labor Procedure: induction of labor vaginal delivery Op report anesthesia: Epidural Delivering Physician: Jimmy Edge MD Estimated blood loss (mL): 300 Findings: , en caul, vigorous female infant Normal placenta and cord No episiotomy / lacerations EBL: 300 cc No complications Pre-Delivery Course: normal labor course fetus reassuring throughout clear amniotic fluid Delivery: vaginal Post-Delivery Status: good History History History 4 Term 3 0 Miscarriages/Ectopic 0 Living Children 3 A&P Assessment and plan 1. Vaginal delivery: PDMP PDMP Reviewed: Not Reviewed Coding Level of Care Code Acute Code for Chg Fwd Diagnoses Vaginal delivery O80
--- NOTE | 2025-04-09 08:18 | ANE.PACU2 ---
Inpatient post-anesthesia follow up: Airway intact: Yes Vital signs: Temperature 96.6 F Pulse Rate 62 Respiratory Rate 15 Blood Pressure 132/76 Pulse Oximetry 99 Oxygen Delivery Me thod Room Air Oxygen Flow Rate Fraction of Inspir ed Oxygen Hydration adequate: Yes Nausea and vomiting: No Pain level: 1 Mental status: Baseline Epidural Start/End: Epidural Start Date: 04/08/25 Epidural Start Time: 20:05 Epidural End Date: 04/09/25 Epidural End Time: 03:25
--- NOTE | 2025-04-09 08:34 | PC.NURSE ---
0730 PATIENT MOVED TO OB 8 AND THEN WENT TO BATHROOM AND THEN WENT INTO NURSERY TO SEE HER BABY.
[2025-04-09] MEDS: PRENATAL VIT NO.130/IRON/FOLIC 1 EACH TABLET PO (09:23)
--- NOTE | 2025-04-09 10:25 | PC.NURSE ---
DFS in room @this time
[2025-04-09 14:43] LABS: Hematocrit 30.1 % (36-47); Hemoglobin 9.50 g/dL (11.27-16.99); Mean Corpuscular HGB Conc 31.6 g/dL (30-55); Mean Corpuscular Hemoglobin 24.9 pg (27-33); Mean Corpuscular Volume 78.8 fl (85-98); Platelet Count 260 10^3/cmm (157-399); Red Blood Count 3.82 10^6/uL (3.85-5.65); White Blood Count 13.20 10^3/uL (3.29-11.43)
--- NOTE | 2025-04-10 03:41 | PC.NURSE ---
This RN at bedside at approximately 0335 putting fresh linens on bed. Patient crying at this time while patient consoled and changed . Patient then informed this RN that she is taking extra of her prescription suboxone so that it would be transferred through her breast milk and help her baby handle withdrawals better. This Rn then informed patient primary nurse, Ailin Juan RN.
[2025-04-10 06:00] VITALS: BP 119/65; PULSE 67; RESP 16; TEMP 36.7; O2SAT 98
--- NOTE | 2025-04-10 08:19 | PM.OBGYDC ---
Discharge Providers ENVIRONMENTAL SAMPLER Date of Admission: 04/08/25 16:51 Date of Discharge: 04/10/25 Attending Provider at Admission: Jimmy Edge MD Attending Provider at Discharge: Jimmy Edge MD Consults: none Primary ENVIRONMENTAL SAMPLER: Jimmy Edge MD Diagnoses at Discharge Discharge Diagnosis 1. Supervision of other high risk , antepartum: Details from hospital stay: 39 y.[facility]. [facility] April 10, 2025 at 39 w 6 d no complications h/o drug use on suboxone had BPP done today, showed decreased MAYRA patient admitted for induction of labor pitocin was started per protocol patient progressed to complete dilatation fetus was reassuring throughout patient delivered vaginally without any complications patient did well and was discharged to home on the first day Reason for Visit Reason for Visit: Low MAYRA in office Brief History: 39 y.o. [facility] April 10, 2025 at 39 w 6 d no complications h/o drug use on suboxone had BPP done today, showed decreased MAYRA patient admitted for induction of labor Hospital Course Hospital Course 39 y.o. [facility] April 10, 2025 at 39 w 6 d no complications h/o drug use on suboxone had BPP done today, showed decreased MAYRA patient admitted for induction of labor pitocin was started per protocol patient progressed to complete dilatation fetus was reassuring throughout patient delivered vaginally without any complications patient did well and was discharged to home on the first day Information Peripartum Data: Infant Delivery Method: Vaginal Laceration description: None Episiotomy description: None complications: none Physical Exam Narrative: afebrile, VS normal comfortable, awake, alert Lungs: clear Cor: RRR Abd: soft, nontender. fundus firm Ext: no edema; nontender Urinary Catheter Management: Patel: Cath Placed During This Visit: yes, but has since been removed by the nurse Reason for Continuing Indwelling Catheter: Decision to DC Catheter Urinary Catheter Date of Insertion: 04/08/25 Urinary Catheter Time of Insertion: 21:15 Date Urinary Catheter Removed: 04/09/25 Time Urinary Catheter Discontinued: 00:40 History History History 4 Term 3 0 Miscarriages/Ectopic 0 Living Children 3 Discharge Data Studies Completed and Pending Laboratory Results WBC 13.20 10^3/uL (3.29-11.43) H 04/09/25 14:17 RBC 3.82 10^6/uL (3.85-5.65) L 04/09/25 14:17 Hgb 9.50 g/dL (11.27-16.99) L 04/09/25 14:17 Hct 30.1 % (36-47) L 04/09/25 14:17 MCV 78.8 fl (85-98) L 04/09/25 14:17 MCH 24.9 pg (27-33) L 04/09/25 14:17 MCHC 31.6 g/dL (30-55) 04/09/25 14:17 RDW 15.2 % (12.1-15.1) H 04/09/25 14:17 Plt Count 260 10^3/cmm (157-399) 04/09/25 14:17 MPV 12.0 fL (7.4-10.4) H 04/09/25 14:17 Neut % (Auto) 70.8 % 04/08/25 16:40 Lymph % (Auto) 21.6 % 04/08/25 16:40 Ford % (Auto) 4.5 % 04/08/25 16:40 Eos % (Auto) 2.0 % 04/08/25 16:40 Baso % (Auto) 0.6 % 04/08/25 16:40 Neut # (Auto) 7.81 10^3/uL (1.8-7.7) H 04/08/25 16:40 Lymph # (Auto) 2.4 10^3/uL (0.8-4.8) 04/08/25 16:40 Ford # (Auto) 0.5 10^3/uL (0.2-0.9) 04/08/25 16:40 Eos # (Auto) 0.2 10^3/uL (0.0-0.8) 04/08/25 16:40 Baso # (Auto) 0.1 10^3/uL (0.0-0.1) 04/08/25 16:40 Nucleated RBC % (auto) 0.2 % 04/08/25 16:40 Nucleated RBCs # 0.0 /100WBC 04/08/25 16:40 Insulin-like GF I Negative 04/08/25 15:50 Fluid pH (paper) Negative 04/08/25 15:58 Urine Opiates Screen Negative ng/mL (Negative) 04/08/25 16:50 Ur Barbiturates Screen Negative ng/mL (Negative) 04/08/25 16:50 Ur Phencyclidine Scrn Negative ng/mL (Negative) 04/08/25 16:50 Ur Amphetamines Screen Negative ng/mL (Negative) 04/08/25 16:50 U Benzodiazepines Scrn Negative ng/mL (Negative) 04/08/25 16:50 Urine Cocaine Screen Negative ng/mL (Negative) 04/08/25 16:50 U Marijuana (THC) Screen Positive ng/mL (Negative) H 04/08/25 16:50 Blood Type A Positive 04/08/25 16:40 Rho(D) Type Rh positive 04/08/25 16:40 Antibody Screen Negative 04/08/25 16:40 Additional Data from Hospital Stay PP Hgb 9.5 Procedures Performed induction of labor vaginal delivery Vitals Last Vital Signs Temp 98.1 F 04/10/25 06:00 Pulse 67 04/10/25 06:00 Resp 16 04/10/25 06:00 BP 119/65 04/10/25 06:00 Pulse Ox 98 04/10/25 06:00 O2 Del Method Room Air 04/10/25 06:00 Results Labs OB ([facility]): Obstetrics US 04/08/25 Obstetrics US/Biophysical Profile 04/01/25 Blood Type A Positive 04/08/25 Antibody Screen Negative 04/08/25 Hct, (36-47) 30.1 % L 04/09/25 Hgb, (11.27-16.99) 9.50 g/dL L 04/09/25 Rho(D) Type Rh positive 04/08/25 Plt Count, (157-399) 260 10^3/cmm 04/09/25 Hep Bs Antigen, (Nonreactive) Non-reactive 11/05/24 Hepatitis C Antibody, (Nonreactive) Reactive H 11/05/24 Rubella IgG Antibody, (0.0-10.0) 152.6 IU/mL H 11/05/24 RPR, (Nonreactive) Nonreactive 11/05/24 HIV 1&2 Ab & HIV 1 Ag, (Non-Reactiv) Non-reactive 11/05/24 TSH, (0.27-4.20) 2.53 uIU/mL 01/16/25 Free T4, (0.82-1.77) 0.80 ng/dL L 01/16/25 Glucose 1 Hr 50 gm, (85-140) 97 mg/dL 01/16/25 HCG, Qual, (Negative) Positive H 10/14/24 Urine Opiates Screen, (Negative) Negative ng/mL 04/08/25 Ur Barbiturates Screen, (Negative) Negative ng/mL 04/08/25 Ur Phencyclidine Scrn, (Negative) Negative ng/mL 04/08/25 Ur Amphetamines Screen, (Negative) Negative ng/mL 04/08/25 U Benzodiazepines Scrn, (Negative) Negative ng/mL 04/08/25 Urine Cocaine Screen, (Negative) Negative ng/mL 04/08/25 U Marijuana (THC) Screen, (Negative) Positive ng/mL H 04/08/25 Micro Urine Specimen 11/05/24 Discharge Plan Discharge Patient Disposition: Home Condition: Stable Prescriptions: Continued venlafaxine 150 mg capsule,extended release 24hr 150 mg PO DAILY buprenorphine HCl 8 mg tablet, sublingual 4 mg sublingual DAILY Rx Instructions: place pill under tongue three times daily. bupropion HCl [Wellbutrin XL] 150 mg tablet extended release 24 hr 150 mg PO QAM [id number] oil 400 mcg-35 mg -25 mg-5 mg tablet,chewable 1 tab PO DAILY ondansetron 8 mg tablet,disintegrating 8 mg PO Q12H PRN (Reason: nausea and vomiting) Qty: 30 0RF Rx Instructions: use sparingly polyethylene glycol 3350 [Miralax] 17 gram/dose powder 17 g PO DAILY Qty: 238 1RF gabapentin 600 mg tablet 600 mg PO TID Qty: 90 0RF hydroxyzine HCl 25 mg tablet See Rx Instructions .ROUTE .COMPLEX Qty: 60 0RF Dose Instruction: TAKE 1 TABLET BY MOUTH TWICE A DAY NEEDED FOR ANXIETY Rx Instructions: TAKE 1 TABLET BY MOUTH TWICE A DAY NEEDED FOR ANXIETY Discharge Order = DC NOW: Discharge Order (Routine); Ordered 04/10/25 Ordered By: Jimmy Edge Referrals: Sia Schultz NP [Nurse Practitioner, ENVIRONMENTAL SAMPLER] - 05/21/25 10:45 am Discharge Diet: Usual diet Discharge Activity: Increase activity as tolerated Patient Instructions: Depression (DC), Opioid Safety (DC), Preeclampsia and Eclampsia After Delivery (GEN), Hemorrhage (DC), OB Discharge Report, OB Food/Drug Interaction Guide, OB Care at Home, Opioid Safety, OB Vaginal Deliveries - [facility], Patient Portal & [facility] Instructions, Abnormal Bleeding Activity Restrictions/Additional Instructions: take iron tabs (ferrous fumarate 325 mg) one to two tabs daily for anemia Discharge Attestations ENVIRONMENTAL SAMPLER Time Spent in Discharge Care*: less than 30 min Coding Level of Care Code Acute Code for Chg Fwd Diagnoses Supervision of other high risk , antepartum O09.899
[2025-04-10] MEDS: PRENATAL VIT NO.130/IRON/FOLIC 1 EACH TABLET PO (10:11)
[2025-04-10 10:20] VITALS: BP 137/70; PULSE 98; RESP 16; TEMP 36.4; O2SAT 99
[2025-04-10 11:15] VITALS: BP 137/70; PULSE 98; RESP 16; TEMP 36.4; O2SAT 99
== END 2025-04-10 11:15 | disposition home or self-care (01) | DRG 806 ==
LOC: OPOB 16:51 → OBGYN 16:51
PROVIDERS: Admitting Provider Obstetrics & Gynecology; Visit Provider Obstetrics & Gynecology
DX: O41.03X0 Oligohydramnios, third trimester, not applicable or unspecified (principal); O99.324 Drug use complicating childbirth; Z37.0 Single live birth; O99.354 Diseases of the nervous system complicating childbirth; F11.90 Opioid use, unspecified, uncomplicated; F12.90 Cannabis use, unspecified, uncomplicated; Z3A.39 39 weeks gestation of pregnancy; F15.11 Other stimulant abuse, in remission; O99.344 Other mental disorders complicating childbirth; F32.A Depression, unspecified; G40.909 Epilepsy, unspecified, not intractable, without status epilepticus
CPT/HCPCS: 36415; 51702; 59025; 59409; 76819; 76820; 80306; 83986; 84112; 85025; 85027; 86850; 86900; 96374; 99211; J2405; J2590; J2765; J2795; J7121; J9999